=== PATIENT | female | born 1990 | race Caucasian/White ===

== ENCOUNTER → 2018-04-19 12:55 | Outpatient (CLI) | payer OTHER, SELFPAY ==
--- NOTE | 2018-04-19 12:58 | CA_ITS ---
PROCEDURE: 2-D M-mode and color Doppler study INDICATIONS FOR THE TEST: Chest pain COPD Heart Murmur+ Tobacco Smoking Palpitations Fatigue+ Syncope Edema Hypertension Diabetes Mellitus Rheumatic Fever SOB HOLLOWAY Obesity Hyperlipidemia Family History HD Additional History KNOWN VSD PATIENT INFORMATION HEIGHT: 65 WEIGHT:167 GENDER: Female B/P:136/80 2-D/M-MODE INTERPRETATION: 2-D MEASUREMENTS OBSERVED VALUES IN CMS Right Ventricular Dimension (RVDd) 2.2 Interventricular Septum (Thickness)(IVsd) 0.8 Left Ventricular Internal Dimensions(LVIDd) 5.5 Left Ventricular Posterior Wall (Thickness)(LVPWd) 0.8 Aortic Root 3.1 Aortic Cusp Separation 2.1 Left Atrial Dimensions (LAD) 3.8 2D 1. Left atrium is normal size, left ventricle is normal size, there is no concentric left ventricular hypertrophy, visually estimated ejection fraction 55% with no obvious regional wall motion abnormality. 2. The right atrium and right ventricle are normal size and contractility. 3. The aortic valve, mitral and tricuspid valvular grossly normal. 4. The pulmonic valve is poorly visualized. 6. No significant pericardial effusion noted. DOPPLER INTERROGATION: Doppler interrogation of the aortic, mitral and tricuspid valvular presence of mild mitral and tricuspid regurgitation, tricuspid regurgitant jet velocity is insufficient for calculation of the right ventricular systolic pressure, there is a flow across the intraventricular septum through membranus VSD. CONCLUSION: 1. Normal left ventricular size, preserved left ventricular systolic function, visually estimated ejection fraction 55% with no obvious regional wall motion abnormality, diastolic parameters are within normal range. 2. 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 3. No significant pericardial effusion noted
== END ==
PROVIDERS: Family Provider Internal Medicine Adolescent Medicine; PCP Emergency Medicine; Visit Provider Emergency Medicine
DX: R01.1 Cardiac murmur, unspecified (principal)
CPT/HCPCS: 93306

== ENCOUNTER → 2019-03-12 14:56 | Outpatient (CLI) | payer OTHER, SELFPAY ==
--- NOTE | 2019-03-12 15:02 | XR_ITS ---
XR wrist RT min 3V HISTORY ITS.REASON: RT WRIST PAIN ORDERING PHYSICIAN: Dorcas Brar APRN PATIENT AGE: 29 years Comparison: None FINDINGS: No fracture or dislocation. No lytic or blastic change. There is normal mineralization.. The joint spaces are well-preserved. No significant degenerative/arthritic changes. No erosive changes evident.. IMPRESSION: Negative wrist
--- NOTE | 2019-03-12 15:02 | XR_ITS ---
XR hand RT min 3V HISTORY: Pain ITS.REASON: RT PAIN ORDERING PHYSICIAN: Dorcas Brar APRN PATIENT AGE: 29 years COMPARISON: None FINDINGS: No fracture or dislocation. No lytic or blastic change. There is normal mineralization.. The joint spaces are well-preserved. No significant degenerative/arthritic changes. No erosive changes evident.. IMPRESSION: Negative, no acute finding
== END ==
PROVIDERS: PCP Internal Medicine Adolescent Medicine; Visit Provider Nurse Practitioner Family
DX: M25.531 Pain in right wrist (principal); M79.641 Pain in right hand
CPT/HCPCS: 73110; 73130

== ENCOUNTER → 2019-10-24 16:39 | Outpatient (CLI) | payer BC, SELFPAY | PROVIDERS: PCP Family Medicine; Visit Provider Family Medicine | DX: R00.0 Tachycardia, unspecified (principal) | CPT/HCPCS: 93225; 93226 ==

== ENCOUNTER → 2020-09-29 10:18 | Outpatient (CLI) | payer BC, SELFPAY ==
[2020-09-30 12:34] LABS: Covid-19 Nasal PCR Sendout Lex Not Detected
== END ==
PROVIDERS: PCP Family Medicine; Visit Provider Nurse Practitioner Family
DX: Z03.818 Encounter for observation for suspected exposure to other biological agents ruled out (principal)
CPT/HCPCS: 87275; 87276; U0004

== ENCOUNTER 2020-11-05 10:21 | Emergency (ER) | payer BC, SELFPAY ==
[2020-11-05] VITALS (7 sets, daily range): BP systolic 112–131; BP diastolic 55–87; PULSE 69–109; RESP 18–20; TEMP 36.9; O2SAT 100; BMI 29.6
--- NOTE | 2020-11-05 | US_ITS ---
PROCEDURE: US TRANSVAGINAL CLINICAL INDICATION: Right lower quadrant pain COMPARISON: No exams were available for comparison FINDINGS: The uterus is retroverted and measures 7 x 5 x 5 cm with a combined endometrial thickness 8 mm. A 14 mm fibroid involves the posterior aspect of the uterus. The left ovary measures 4 x 3 cm containing multiple follicles and a 2.5 cm simple appearing cyst. Right ovary has an unremarkable appearance measuring 4 x 2.4 cm. Bilateral ovarian blood flow is present. No cul-de-sac fluid apparent. IMPRESSION: Retroverted uterus with small uterine fibroid and 2.5 cm left ovarian cyst Dictated by: Clifford Osorio MD 11/05/2020 12:39 Clifford Osorio MD in [facility] 11/05/2020 12:39
--- NOTE | 2020-11-05 10:31 | HMH.EDABDPAI ---
ED Disposition Clinical Impression: Right lower quadrant abdominal pain Disposition: Home, Self-Care Condition on Discharge: Good Referrals: Mallory Rodriguez PA [Primary Care Provider] - 3 days - Critical Care Critical Care Time: No Attestation: On , the high probability of a clinically significant, sudden or life threatening deterioration of the following system(s) required my full and direct attention, intervention and personal management. The time I documented below is in addition to time spent performing reported procedures but includes the following listed in this critical care notation. Medical Decision Making - Andrea Inquiry Pt receiving controlled substance: No Vital Signs: 11/05/20 10:24 11/05/20 11:16 11/05/20 11:30 Temperature 98.4 F Temperature Source Oral Pulse Rate [Left Radial] 109 H 81 95 H Respiratory Rate 20 Blood Pressure [Left Arm] 131/87 122/73 120/77 Blood Pressure Mean [Left Arm] 101 89 91 Blood Pressure Source [Left Arm] Automatic Cuff Automatic Cuff Automatic Cuff Blood Pressure Position [Left Arm] Sitting Sitting Sitting 02 Sat by Pulse Oximetry 100 100 100 Oxygen Delivery Method Room Air Room Air Room Air 11/05/20 13:00 11/05/20 13:30 11/05/20 14:00 Temperature Temperature Source Pulse Rate [Left Radial] 82 80 75 Respiratory Rate Blood Pressure [Left Arm] 124/73 130/78 116/65 Blood Pressure Mean [Left Arm] 90 95 82 Blood Pressure Source [Left Arm] Automatic Cuff Automatic Cuff Automatic Cuff Blood Pressure Position [Left Arm] Sitting Sitting Sitting 02 Sat by Pulse Oximetry 100 Oxygen Delivery Method Room Air - Lab Data Lab Results 11/05/20 11:34: WBC 9.4, RBC 4.58, Hgb 13.5, Hct 40.3, MCV 88.0, MCH 29.4, MCHC 33.4, RDW 14.6, Plt Count 319, MPV 7.4, Neut % (Auto) 79.0, Lymph % (Auto) 14.8, [place] % (Auto) 4.3, Eos % (Auto) 1.4, Baso % (Auto) 0.5, Neut # (Auto) 7.4, Lymph # (Auto) 1.4, [place] # (Auto) 0.4, Eos # (Auto) 0.1, Baso # (Auto) 0.1 11/05/20 11:34: Sodium 139, Potassium 3.7, Chloride 103, Carbon Dioxide 25, Anion Gap 14.7, BUN 11, Creatinine 0.60, Estimated Creat Clear 175, Estimated GFR 117, Est GFR ( Amer) 142, Glucose 114 H, Calcium 10.2, Total Bilirubin 0.5, AST 26, ALT 22, Alkaline Phosphatase 96, Total Protein 8.5 H, Albumin 4.6, Globulin 3.9 H, Albumin/Globulin Ratio 1.2, Lipase 82, HCG, Quant < 2 11/05/20 11:34: Serum HCG, Qual Negative 11/05/20 12:51: Urine Color Yellow, Urine Appearance Clear, Urine pH 8.5, Ur Specific [place] 1.010, Urine Protein Negative, Urine Glucose (UA) Negative, Urine Ketones Negative, Urine Blood 1+, Urine Nitrate Negative, Urine Bilirubin Negative, Urine Urobilinogen 0.2, Ur Leukocyte Esterase Negative, Urine RBC None, Urine WBC 5-10, Ur Squamous Epith Cells 5-10, Urine Bacteria Trace Result diagrams: 11/05/20 11:34 11/05/20 11:34 Orders (Tests/Meds): ED MEDICATIONS Discontinued Medications Generic Name Dose Route Start Last Admin Trade Name Freq PRN Reason Stop Dose Admin Iopamidol 75 ml 11/05/20 13:17 11/05/20 13:18 Iopamidol-370 (76%);100ml Bottle IV 11/05/20 13:18 75 ml ONCE ONE Administration Morphine Sulfate 4 mg 11/05/20 11:01 11/05/20 11:04 Morphine 4mg/Ml Syringe IV 11/05/20 11:02 4 mg ONCE ONE Administration Ondansetron HCl 4 mg 11/05/20 10:30 Ondansetron 4mg Odt SL 11/05/20 10:31 ONCE ONE Ondansetron HCl 4 mg 11/05/20 11:02 11/05/20 11:04 Ondansetron 4mg/2ml Vial IV 11/05/20 11:03 4 mg ONCE ONE Administration Sodium Chloride 10 ml 11/05/20 13:17 11/05/20 13:18 Sodium Chloride 0.9% 10ml Syr (Rad Only) IV 11/05/20 13:18 10 ml ONCE ONE Administration - CT Data CT Scan: Abdomen, Pelvis Time Received: 14:[address] Reviewed: Yes: I have viewed the radiologist's interpretation Preliminary Findings: Normal/NAD Findings Narrative: Displaced tubal clips. Small left ovarian cyst. Uterine fibroid. - US Data US Images: Abdome
--- NOTE | 2020-11-05 11:16 | US_ITS ---
PROCEDURE: US ABDOMEN LIMITED CLINICAL INDICATION: RLQ pain COMPARISON: No exams were available for comparison FINDINGS: General survey is performed of the right lower quadrant. No obvious cyst, mass, or abnormal fluid collection is evident. The appendix is not identified IMPRESSION: Unremarkable limited abdominal ultrasound as detailed above. This exam does not exclude the possibility acute appendicitis. Suggest CT of the abdomen for further evaluation if that is a clinical concern. Dictated by: Clifford Osorio MD 11/05/2020 12:36 Clifford Osorio MD in [facility] 11/05/2020 12:36
--- NOTE | 2020-11-05 11:44 | PC.NURSE ---
pt to radiology
[2020-11-05 11:48] LABS: Basophils # 0.1 K/mm3 (0-0.2); Basophils % 0.5 % (0.1-2.0); Eosinophils # 0.1 K/mm3 (0.0-0.4); Eosinophils % 1.4 % (0.1-12.0); Hematocrit 40.3 % (37.0-47.0); Hemoglobin 13.5 g/dL (12.2-16.2); Lymphocytes # 1.4 K/mm3 (0.7-4.5); Lymphocytes % 14.8 % (10-50); Mean Corpuscular HGB Conc 33.4 g/dL (31.8-35.4); Mean Corpuscular Hemoglobin 29.4 pg (27.0-31.2); Mean Platelet Volume 7.4 fl (7.4-10.4); Monocytes # 0.4 K/mm3 (0.1-1.0); Monocytes % 4.3 % (1.7-9.3); Neutrophils # 7.4 K/mm3 (1.8-7.8); Platelet Count 319 K/mm3 (142-424); Red Blood Count 4.58 M/mm3 (4.20-5.40); Red Cell Distribution Width 14.6 % (11.5-17.5); White Blood Count 9.4 K/mm3 (4.8-10.8)
--- NOTE | 2020-11-05 11:56 | PC.NURSE ---
Roseline from radiology on phone with
[2020-11-05 12:05] LABS: HCG Qualitative, Serum Negative (Negative)
--- NOTE | 2020-11-05 12:08 | PC.NURSE ---
Pt gone to radiology prior to Roseline calling. Patient still gone at this time.
[2020-11-05 12:09] LABS: Alanine Aminotransferase 22 U/L (12-78); Albumin Level 4.6 g/dl (3.5-5.0); Albumin/Globulin Ratio 1.2 (1.1-1.8); Alkaline Phosphatase 96 U/L (38-126); Anion Gap 14.7 mEq/L (5-15); Aspartate Amino Transferase 26 U/L (14-36); Bilirubin,Total 0.5 mg/dl (0.2-1.3); Blood Urea Nitrogen 11 mg/dl (7-17); Calcium 10.2 mg/dl (8.4-10.2); Carbon Dioxide 25 mmol/L (22.0-30.0); Chloride 103 mmol/L (98-107); Creatinine Clearance Estimated 175 mL/min (50-200); Estimated Glomerular Filt Rate 117 ml/min (>60); GFR (African American) 142 ML/MIN (>60); Globulin 3.9 g/dL (1.3-3.2); Glucose 114 mg/dl (74-100); Lipase 82 U/L (23-300); Potassium 3.7 mmoL/L (3.5-5.1); Sodium 139 mmol/L (136-145); Total Protein,Serum 8.5 g/dl (6.3-8.2)
[2020-11-05 12:31] LABS: HCG,Quantitative < 2 mIU/ml (0-5.42)
--- NOTE | 2020-11-05 12:35 | PC.NURSE ---
pt returning from radiology
--- NOTE | 2020-11-05 12:36 | CT_ITS ---
PROCEDURE: CT ABDOMEN PELVIS W CON CLINICAL INDICATION: Right lower quadrant abdominal pain COMPARISON: No exams were available for comparison TECHNIQUE: IV Contrast: 75ML Isovue 370 Oral Contrast None Axial images obtained with sagittal and coronal reformats. All CT scans at the facility use one or more dose reduction, viz: automated exposure control, ma/kV adjustment per patient size (including targeted exams where dose is matched to indication, i.e. head), or iterative reconstruction technique. FINDINGS: LOWER THORAX: No acute finding ABDOMEN & PELVIS: The liver, spleen, adrenal glands, pancreas, and kidneys have an unremarkable appearance. No renal or ureteral calculi. There is a small umbilical hernia which contains fat. No intestinal obstruction or free air. No evidence of appendicitis. There is a 2.2 cm left ovarian cyst. A tubal ligation clip is present in the right adnexal region. Multiple clips are present in the cul-de-sac area. There is trace amount of fluid in the cul-de-sac. No acute bony findings. There are few small lymph nodes in the inguinal region. IMPRESSION: 1. No evidence of appendicitis or obstructing ureteral calculus. 2. There is a right-sided tubal ligation clip. Multiple clips are present also in the cul-de-sac region suspicious for displaced/dislodged left-sided tubal ligation clip. No tubal ligation clip evident in the left adnexal region. 3. Minimal amount of fluid in the cul-de-sac nonspecific Dictated by: Clifford Osorio MD 11/05/2020 13:35 Clifford Osorio MD in [place] 11/05/2020 13:35
--- NOTE | 2020-11-05 13:09 | PC.NURSE ---
pt to CT
[2020-11-05 14:09] LABS: Microscopic, Urine URINE MICROSCOPIC (MICROSCOPIC)
[2020-11-05 14:18] LABS: Appearance,Urine CLEAR (Clear); Bilirubin,Urine Negative (Negative); Blood, Urine 1+ (Negative); Color,Urine YELLOW (Yellow); Glucose,Urine (UA) Negative (Negative); Ketones,Urine Negative (Negative); Leukocyte Esterase,Urine Negative (Negative); Nitrate,Urine Negative (Negative); PH,Urine 8.5 (5.0-8.5); Protein,Urine Negative (Negative); Urobilinogen,Urine 0.2 EU/dl (0.2)
[2020-11-05 14:29] LABS: Bacteria,Urine Trace /lpf
== END 2020-11-05 14:54 | disposition home or self-care (01) ==
PROVIDERS: Emergency Provider Family Medicine; PCP Physician Assistant
DX: R10.31 Right lower quadrant pain (principal); R11.0 Nausea; Z91.040 Latex allergy status; R01.1 Cardiac murmur, unspecified; Z88.0 Allergy status to penicillin
CPT/HCPCS: 74177; 76705; 76830; 80053; 81001; 83690; 84702; 84703; 85025; 96374; 96375; 99284; J2405; Q9967

== ENCOUNTER → 2021-05-11 09:26 | Outpatient (CLI) | payer OTHER, SELFPAY | PROVIDERS: PCP Family Medicine; Visit Provider Physician Assistant | DX: Z20.822 Contact with and (suspected) exposure to COVID-19 (principal) | CPT/HCPCS: U0003 ==

== ENCOUNTER → 2021-06-26 11:45 | Outpatient (CLI) | payer OTHER, SELFPAY ==
[2021-06-26 12:12] LABS: Adenovirus,PCR Not Detected (NotDetected); Bordetella Pertussis Not Detected (NotDetected); Chlamydophila Pneumoniae, PCR Not Detected (NotDetected); Coronavirus 19, PCR Not Detected (NotDetected); Coronavirus 229E Not Detected (NotDetected); Coronavirus NL63 Not Detected (NotDetected); Coronavirus OC43 Not Detected (NotDetected); Coronovirus HKU1,PCR Not Detected (NotDetected); Human Metapneumovirus Not Detected (NotDetected); Influenza A, PCR Not Detected (NotDetected); Influenza AH1, 2009 Not Detected (NotDetected); Influenza AH1, PCR Not Detected (NotDetected); Influenza AH3,PCR Not Detected (NotDetected); Influenza B, PCR Not Detected (NotDetected); Mycoplasma Pneumoniae, PCR Not Detected (NotDetected); Parainfluenza 1, PCR Not Detected (NotDetected); Parainfluenza 2, PCR Not Detected (NotDetected); Parainfluenza 3, PCR Not Detected (NotDetected); Parainfluenza 4, PCR Not Detected (NotDetected); Respiratory Syncytial Virus Not Detected (NotDetected)
[2021-06-26 12:17] LABS: Basophils # 0.1 K/mm3 (0-0.2); Basophils % 0.7 % (0.1-2.0); Eosinophils # 0.2 K/mm3 (0.0-0.4); Eosinophils % 2.1 % (0.1-12.0); Hematocrit 39.6 % (37.0-47.0); Hemoglobin 12.5 g/dL (12.2-16.2); Lymphocytes # 1.6 K/mm3 (0.7-4.5); Lymphocytes % 20.3 % (10-50); Mean Corpuscular HGB Conc 31.6 g/dL (31.8-35.4); Mean Corpuscular Volume 91.7 fl (81-99); Mean Platelet Volume 7.5 fl (7.4-10.4); Monocytes # 0.4 K/mm3 (0.1-1.0); Monocytes % 4.7 % (1.7-9.3); Neutrophils # 5.6 K/mm3 (1.8-7.8); Neutrophils % 72.1 % (37.0-80.0); Platelet Count 339 K/mm3 (142-424); Red Blood Count 4.32 M/mm3 (4.20-5.40); Red Cell Distribution Width 14.1 % (11.5-17.5); White Blood Count 7.7 K/mm3 (4.8-10.8)
[2021-06-26 13:56] LABS: Rhinovirus/Enterovirus Detected (NotDetected)
== END ==
PROVIDERS: PCP Family Medicine; Visit Provider Family Medicine
DX: Z20.822 Contact with and (suspected) exposure to COVID-19 (principal); B34.1 Enterovirus infection, unspecified
CPT/HCPCS: 36415; 85025; 87581; 87633; 87798

== ENCOUNTER → 2021-08-27 09:31 | Outpatient (CLI) | payer OTHER, SELFPAY ==
[2021-08-27 12:09] LABS: Adenovirus,PCR Not Detected (NotDetected); Coronavirus 229E Not Detected (NotDetected); Coronavirus NL63 Not Detected (NotDetected); Coronavirus OC43 Not Detected (NotDetected); Coronovirus HKU1,PCR Not Detected (NotDetected); Human Metapneumovirus Not Detected (NotDetected); Influenza A, PCR Not Detected (NotDetected); Influenza AH1, 2009 Not Detected (NotDetected); Influenza AH1, PCR Not Detected (NotDetected); Influenza AH3,PCR Not Detected (NotDetected); Influenza B, PCR Not Detected (NotDetected); Parainfluenza 1, PCR Not Detected (NotDetected); Parainfluenza 2, PCR Not Detected (NotDetected); Rhinovirus/Enterovirus Not Detected (NotDetected)
[2021-08-27 12:10] LABS: Bordetella Pertussis Not Detected (NotDetected); Chlamydophila Pneumoniae, PCR Not Detected (NotDetected); Mycoplasma Pneumoniae, PCR Not Detected (NotDetected); Parainfluenza 3, PCR Not Detected (NotDetected); Parainfluenza 4, PCR Not Detected (NotDetected); Respiratory Syncytial Virus Not Detected (NotDetected)
[2021-08-27 13:56] LABS: Coronavirus 19, PCR Detected (NotDetected)
== END ==
PROVIDERS: PCP Family Medicine; Visit Provider Physician Assistant
DX: Z20.822 Contact with and (suspected) exposure to COVID-19 (principal); U07.1 COVID-19
CPT/HCPCS: 87581; 87632; 87798; C9803; U0003; U0005

== ENCOUNTER 2021-08-28 09:53 | Outpatient (CLI) | payer OTHER, SELFPAY ==
[2021-08-28] VITALS (7 sets, daily range): BP systolic 109–118; BP diastolic 69–81; PULSE 90–105; RESP 20–22; TEMP 36.6–37.1; O2SAT 96–98
== END 2021-08-28 12:30 | disposition home or self-care (01) ==
LOC: INF 09:54
PROVIDERS: PCP Family Medicine; Visit Provider Family Medicine
DX: U07.1 COVID-19 (principal); Z23 Encounter for immunization
CPT/HCPCS: 96365

== ENCOUNTER → 2021-10-11 10:32 | Outpatient (CLI) | payer OTHER, SELFPAY ==
[2021-10-12 09:13] LABS: Progesterone 4.6 ng/mL (.)
== END ==
PROVIDERS: Visit Provider Obstetrics & Gynecology
DX: N97.9 Female infertility, unspecified (principal)
CPT/HCPCS: 36415; 84144

== ENCOUNTER → 2021-11-09 08:10 | Outpatient (CLI) | payer BC, SELFPAY ==
[2021-11-10 08:16] LABS: Progesterone 10.4 ng/mL (.)
== END ==
PROVIDERS: Visit Provider Obstetrics & Gynecology
DX: U07.1 COVID-19 (principal)
CPT/HCPCS: 36415; 84144; C9803; U0003; U0005

== ENCOUNTER → 2022-04-13 19:18 | Outpatient (CLI) | payer BC, SELFPAY ==
[2022-04-13 20:18] LABS: HCG,Quantitative 262 mIU/ml (0-5.42)
== END ==
PROVIDERS: PCP Family Medicine; Visit Provider Obstetrics & Gynecology
DX: Z34.90 Encounter for supervision of normal pregnancy, unspecified, unspecified trimester (principal)
CPT/HCPCS: 84702

== ENCOUNTER → 2022-04-17 06:59 | Outpatient (CLI) | payer BC, SELFPAY ==
[2022-04-17 07:55] LABS: HCG,Quantitative 963 mIU/ml (0-5.42)
== END ==
PROVIDERS: PCP Family Medicine; Visit Provider Obstetrics & Gynecology
DX: Z34.90 Encounter for supervision of normal pregnancy, unspecified, unspecified trimester (principal)
CPT/HCPCS: 36415; 84702

== ENCOUNTER → 2022-04-21 09:16 | Outpatient (CLI) | payer BC, SELFPAY ==
--- NOTE | 2022-04-21 09:21 | US_ITS ---
FINAL REPORT CLINICAL HISTORY: intermittent bilateral pelvic pain with early ; rule out ectopic; patient has history of right sided tubal and left sided tube reversal FINDINGS: Sonographic images of the pelvis were obtained. A gestational sac is noted within the uterus. The mean sac diameter is 0.59 cm which corresponds with a 5 week 1 day gestation. No yolk sac or pole is identified. There is a 2.5 cm heterogeneous mass in the left ovary and a 2.7 cm heterogeneous mass in the right ovary. These are of uncertain etiology and may represent complex cysts, other masses are not excluded. An ectopic cannot be excluded. There is a small amount of free fluid. IMPRESSION: Small gestational sac in the uterus corresponding with 5 week 1 day gestation. Recommend follow-up ultrasound. Bilateral heterogeneous ovarian masses of uncertain etiology. Complex cysts or other masses. This can also be further evaluated with follow-up ultrasound. Ectopic not excluded but felt less likely. Reviewed, Interpreted and Dictated by Alex Narvaez III, MD Transcribed by Renee Millan Authenticated and [facility]
[2022-04-21 11:20] LABS: HCG,Quantitative 4351 mIU/ml (0-5.42)
[2022-04-22 08:53] LABS: Progesterone 18.5 ng/mL (.)
== END ==
PROVIDERS: PCP Family Medicine; Visit Provider Obstetrics & Gynecology
DX: Z34.90 Encounter for supervision of normal pregnancy, unspecified, unspecified trimester (principal); Z98.890 Other specified postprocedural states
CPT/HCPCS: 36415; 76801; 84144; 84702

== ENCOUNTER → 2022-05-01 12:27 | Outpatient (CLI) | payer BC, SELFPAY ==
--- NOTE | 2022-05-01 12:28 | US_ITS ---
FINAL REPORT TECHNIQUE: Sonographic imaging of the pelvis was obtained. CLINICAL HISTORY: confirmation of intrauterine ,dates COMPARISON: 04/21/2022 FINDINGS: A single, living intrauterine is identified. Cardiac activity is identified at 116 beats per minute. [place]-rump length is 0.73 cm consistent with 6 weeks 5 days gestation. A 1.5 x 1.1 cm, hypoechoic focus is seen arising from the right ovary likely due to complex cyst. This does not appear to represent gestational sac. IMPRESSION: Single, living intrauterine consistent with 6 weeks 5 days gestation. Reviewed, Interpreted and Dictated by Harris Clinton MD Transcribed by Samara Christine Authenticated and [facility]
== END ==
PROVIDERS: PCP Family Medicine; Visit Provider Obstetrics & Gynecology
DX: Z98.890 Other specified postprocedural states (principal)
CPT/HCPCS: 76801

== ENCOUNTER 2022-05-17 17:58 | Emergency (ER) | payer BC, SELFPAY ==
[2022-05-17 18:08] VITALS: BP 143/90; PULSE 101; RESP 18; TEMP 37; O2SAT 100; BMI 29.1
--- NOTE | 2022-05-17 18:28 | HMH.EDGENADL ---
ED Disposition Clinical Impression: Right corneal abrasion Qualifiers: Encounter type: initial encounter Qualified Code(s): S05.01XA - Injury of conjunctiva and corneal abrasion without foreign body, right eye, initial encounter Disposition: Home, Self-Care Condition on Discharge: Good Instructions: DI for Corneal Abrasion Additional Instructions: Tobramycin eyedrop in right eye every 4 hours while awake for 2 days. Follow-up with [facility] tomorrow if eye pain persist. Dr. Gómez, Dr. Lantigua, Dr. Pritchett [facility] [address] [place] [address] Additional instructions for EYE PAIN or INJURY: Return to the emergency department if severe pain, loss of vision, pus drainage, severe swelling or redness of eyelids. Prescriptions: Tobramycin [Tobrex] 1 drp OP Q4HWA #5 ml Transmission Status: Pending to [facility] Referrals: Sunday Joshi MD [Primary Care Provider] - - Critical Care Critical Care Time: No Attestation: On , the high probability of a clinically significant, sudden or life threatening deterioration of the following system(s) required my full and direct attention, intervention and personal management. The time I documented below is in addition to time spent performing reported procedures but includes the following listed in this critical care notation. Medical Decision Making - Andrea Inquiry Pt receiving controlled substance: No Vital Signs: 05/17/22 18:08 Temperature 98.6 F Temperature Source Oral Pulse Rate [Apical] 101 H Respiratory Rate 18 Blood Pressure [Right Arm] 143/90 H Blood Pressure Mean [Right Arm] 107 Blood Pressure Source [Right Arm] Automatic Cuff Blood Pressure Position [Right Arm] Sitting 02 Sat by Pulse Oximetry 100 Oxygen Delivery Method Room Air General Adult HPI - General Chief complaint: Eye Problems Stated complaint: AO 05/17/22 1715 right eye injury Time Seen by Provider: 05/17/22 18:20 Mode of Arrival: Ambulatory Limitations: No Limitations Description of Symptoms (Recalled from ER Triage Doc. by RN): Pt arrives pov, per pt at approx 1700 her 4 year old daughter accidentally poked her in her right eye. Pt c/o pain and discomfort in the eye, also feels as though she can see a small bubble on her cornea at the top of her iris. - History of Present Illness HPI narrative: Patient complains of right eye injury. States that her child poked her in the eye with a finger. No visual disturbance. She complains of a foreign body sensation in her eye and says that when she looks at her eye in the mirror it looks like she has a small bubble at the top of her cornea. She does not wear contact lenses or glasses. - Related Data Home Medications Medication Instructions Recorded Confirmed vits [id number] fum 1 tab PO DAILY tab 04/17/22 05/17/22 28 mg iron-folic acid 800 mcg tablet Previous Rx's Medication Instructions Recorded ondansetron 4 mg disintegrating 4 mg PO Q4H PRN #30 tab 04/17/22 tablet Tobramycin [Tobrex] 1 drp OP Q4HWA #5 ml 05/17/22 Allergies Allergy/AdvReac Type Severity Reaction Status Date / Time latex [LATEX] Allergy Intermediate I-RASH Verified 05/01/22 13:54 cefaclor [From CECLOR] Allergy Unknown Verified 05/01/22 13:54 Penicillins [PENICILLINS] Allergy Unknown Verified 05/01/22 13:54 [facility] History - Hepatitis A Screen Attestation statement:: This patient has been screened for Hepatitis A risk factors. I have reviewed the patient's past medical history: Yes Medical History: Reports:: Heart Murmur Denies:: Diabetes Mellitus Type 1, Diabetes Mellitus Type 2 Other Surgeries: Yes: Tubal Ligation Amputation: No Fractures: No - Social History Smoking Status: Never smoker Alcohol Intake: never Substance Use Type: denies use Occupational Status: employed Family Hx:: No significant family history ROS Obtained: Yes Systems revi
[2022-05-17 18:48] VITALS: BP 124/80; PULSE 78; RESP 16; TEMP 36.6; O2SAT 98
== END 2022-05-17 18:52 | disposition home or self-care (01) ==
LOC: ER 18:35
PROVIDERS: Emergency Provider Emergency Medicine; PCP Family Medicine
DX: S05.01XA Injury of conjunctiva and corneal abrasion without foreign body, right eye, initial encounter (principal); W26.8XXA Contact with other sharp object(s), not elsewhere classified, initial encounter; Z88.0 Allergy status to penicillin; Z88.1 Allergy status to other antibiotic agents; Z91.040 Latex allergy status; R01.1 Cardiac murmur, unspecified
CPT/HCPCS: 99283

== ENCOUNTER → 2022-05-20 08:55 | Outpatient (CLI) | payer BC, SELFPAY ==
[2022-05-24 05:10] LABS: Neisseria gonorrhoeae, NAA Negative (Negative)
== END ==
PROVIDERS: Visit Provider Obstetrics & Gynecology
DX: Z34.90 Encounter for supervision of normal pregnancy, unspecified, unspecified trimester (principal)
CPT/HCPCS: 87491; 87591

== ENCOUNTER → 2022-05-23 10:54 | Outpatient (CLI) | payer BC, SELFPAY ==
[2022-05-23 11:36] LABS: Basophils # 0.1 K/mm3 (0-0.2); Basophils % 0.6 % (0.1-2.0); Eosinophils # 0.3 K/mm3 (0.0-0.4); Eosinophils % 3.6 % (0.1-12.0); Hematocrit 38.5 % (37.0-47.0); Hemoglobin 12.3 g/dL (12.2-16.2); Lymphocytes # 1.8 K/mm3 (0.7-4.5); Lymphocytes % 22.2 % (10-50); Mean Corpuscular Hemoglobin 28.1 pg (27.0-31.2); Mean Corpuscular Volume 88.1 fl (81-99); Mean Platelet Volume 7.6 fl (7.4-10.4); Monocytes # 0.5 K/mm3 (0.1-1.0); Monocytes % 5.6 % (1.7-9.3); Neutrophils # 5.6 K/mm3 (1.8-7.8); Platelet Count 349 K/mm3 (142-424); Red Blood Count 4.38 M/mm3 (4.20-5.40); Red Cell Distribution Width 14.9 % (11.5-17.5); White Blood Count 8.2 K/mm3 (4.8-10.8)
[2022-05-24 06:14] LABS: HIV Screen 4th Generation wRfx Non Reactive (Non Reactive); Hepatitis B Surface Antigen Negative (Negative); Hepatitis C Antibody <0.1 s/co ratio (0.0-0.9); Rubella Antibodies, IgG 3.17 index (Immune >0.99)
[2022-05-24 11:25] LABS: Rapid Plasma Reagin Ab Titer Non Reactive (NonRea<1:1)
== END ==
PROVIDERS: PCP Family Medicine; Visit Provider Obstetrics & Gynecology
DX: O09.00 Supervision of pregnancy with history of infertility, unspecified trimester (principal)
CPT/HCPCS: 36415; 85025; 86592; 86703; 86762; 86850; 87340; 87380; G0432

== ENCOUNTER 2022-07-10 12:00 | Emergency (ER) | payer BC, SELFPAY ==
[2022-07-10 12:00] VITALS: BP 144/83; PULSE 96; RESP 17; TEMP 36.7; O2SAT 100; BMI 28.6
--- NOTE | 2022-07-10 12:13 | HMH.EDGENADL ---
Discharge Plan Disposition Patient Disposition: Home, Self-Care Condition: Good Prescriptions Prescriptions: New metoclopramide HCl [Reglan] 10 mg tablet 10 mg PO Q6H PRN (Reason: nausea and vomiting) Qty: 30 0RF No Action Classic 28 mg iron- 800 mcg tablet 1 tab PO DAILY ondansetron 4 mg tablet,disintegrating 4 mg PO Q4H PRN (Reason: nausea and vomiting) Qty: 30 4RF Referrals Follow up/Referrals: Sunday Joshi MD [Primary Care Provider] - See instructions Clinical Impressions Clinical Impression: Hyperemesis gravidarum Instructions Patient Instructions: DI for Hyperemesis Gravidarum, Nausea and Vomiting-Adult, Metoclopramide Discharge ED Provider: Kvng Kim General Adult HPI General Chief complaint: Nausea/Vomiting/Diarrhea Stated complaint: high blood pressure,vomiting Time Seen by Provider: 07/10/22 12:13 Mode of Arrival: Ambulatory History of Present Illness HPI narrative: 32-year-old female, currently at approximately 17 weeks EGA. She presents today with complaints of elevated blood pressure and vomiting. She had previous complication of preeclampsia leading to induction at 36 weeks with last baby. She states she is having significant nausea is having vomiting to the point that leads to incontinence due to the forcefulness. She denies any discharge or vaginal bleeding or spotting. Recheck of blood pressure here reveals to be normotensive. 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 She also relates she has labs scheduled for tomorrow. Chief issue presenting to the ED is the severe nausea refractory to Zofran which she has been taking. Related Data Home Medications Medication Instructions Recorded Confirmed vits no.[id number] fum 1 tab PO DAILY Supplement 04/17/22 07/07/22 28 mg iron-folic acid 800 mcg tablet (Classic ) Previous Rx's Medication Instructions Recorded ondansetron 4 mg disintegrating 4 mg PO Q4H PRN nausea and 04/17/22 tablet vomiting #30 tabs metoclopramide HCl 10 mg tablet 10 mg PO Q6H PRN nausea and 07/10/22 (Reglan) vomiting #30 tabs Allergies Allergy/AdvReac Type Severity Reaction Status Date / Time latex [LATEX] Allergy Intermediate I-RASH Verified 07/07/22 08:48 cefaclor [From CECLOR] Allergy Unknown Verified 07/07/22 08:48 Penicillins [PENICILLINS] Allergy Unknown Verified 07/07/22 08:48 [facility] Medical History Heart murmur VSD (ventricular septal defect) Surgical History H/O wisdom tooth extraction History of reversal of tubal ligation History of tubal ligation Family History Other No significant family history Social History Smoking Status: Never smoker alcohol intake: never substance use type: denies use current occupational status: employed Travel in the last 8 weeks: None ROS Obtained: Yes Systems reviewed as appropriate & no additional complaints except as documented Constitutional Constitutional: Reports system reviewed and no additional complaints, except as documented Eyes Eyes: Reports system reviewed and no additional complaints, except as documented ENT Ears, Nose, Mouth, and Throat: Reports system reviewed and no additional complaints, except as documented Cardiovascular Cardiovascular: Reports system reviewed and no additional complaints, except as documented Respiratory Respiratory: Reports system reviewed and no additional complaints, except as documented Gastrointestinal Gastrointestingal: Reports as per HPI Genitourinary Female Genitourinary: Reports system reviewed and no additional complaints, except as documented Musculoskeletal Musculoskeletal: Rep
[2022-07-10 12:34] VITALS: BP 118/62; PULSE 88; RESP 17; O2SAT 100
--- NOTE | 2022-07-10 12:45 | PC.NURSE ---
ED MD AT BEDSIDE FOR EVALUATION
--- NOTE | 2022-07-10 12:55 | PC.NURSE ---
MEDICATED AT THIS TIME, PT WITHOUT NEEDS
[2022-07-10 13:05] VITALS: BP 122/69; PULSE 87; RESP 16; TEMP 36.7; O2SAT 100
== END 2022-07-10 13:05 | disposition home or self-care (01) ==
PROVIDERS: Emergency Provider Emergency Medicine; PCP Family Medicine
DX: O21.0 Mild hyperemesis gravidarum (principal); Z3A.17 17 weeks gestation of pregnancy
CPT/HCPCS: 99283

== ENCOUNTER → 2022-07-11 08:08 | Outpatient (CLI) | payer BC, SELFPAY ==
[2022-07-11 08:55] LABS: Total Volume,Urine 1700 mL (600-1600)
[2022-07-11 09:20] LABS: Total Protein 24 Hour,Urine 510 mg/24 hr (40-90)
[2022-07-11 11:08] LABS: Creatinine,Urine Random 58 mg/dL (Not Estab.)
[2022-07-11 18:44] LABS: Patient Height,Urine 65 inches
[2022-07-11 18:45] LABS: Patient Weight,Urine 175 lbs
[2022-07-11 18:46] LABS: Collection Time,Urine 24 hours
[2022-07-11 18:47] LABS: Creatinine 24 Hour,Urine 986 mg/24hr (630-2500)
== END ==
PROVIDERS: PCP Family Medicine; Visit Provider Obstetrics & Gynecology
DX: I10 Essential (primary) hypertension (principal)
CPT/HCPCS: 82575; 84155

== ENCOUNTER 2022-07-14 10:54 | Observation (INO) | payer BC, SELFPAY ==
[2022-07-14 11:07] VITALS: BMI 29.2
--- NOTE | 2022-07-14 11:33 | HMH.PHAINT1 ---
Pharmacy Intervention Comments: MEDICATION RECONCILIATION COMPLETED ON PATIENT USING EXTERNAL FILL HISTORY FROM PHARMACY. -DORCAS SCALES, HELEND
[2022-07-14 12:41] VITALS: BP 114/75; PULSE 82; RESP 18; TEMP 36.7; O2SAT 98; BMI 29.4
[2022-07-14 12:45] LABS: Microscopic, Urine URINE MICROSCOPIC (MICROSCOPIC)
[2022-07-14 12:48] LABS: Basophils # 0.1 K/mm3 (0-0.2); Basophils % 0.6 % (0.1-2.0); Eosinophils # 0.2 K/mm3 (0.0-0.4); Eosinophils % 1.7 % (0.1-12.0); Hematocrit 35.4 % (37.0-47.0); Lymphocytes # 1.9 K/mm3 (0.7-4.5); Lymphocytes % 19.9 % (10-50); Mean Corpuscular HGB Conc 33.9 g/dL (31.8-35.4); Mean Corpuscular Hemoglobin 29.7 pg (27.0-31.2); Mean Corpuscular Volume 87.6 fl (81-99); Mean Platelet Volume 7.8 fl (7.4-10.4); Monocytes # 0.4 K/mm3 (0.1-1.0); Monocytes % 3.8 % (1.7-9.3); Neutrophils % 74.1 % (37.0-80.0); Platelet Count 303 K/mm3 (142-424); Red Blood Count 4.04 M/mm3 (4.20-5.40); Red Cell Distribution Width 14.6 % (11.5-17.5); White Blood Count 9.5 K/mm3 (4.8-10.8)
[2022-07-14 12:53] LABS: Chloride 104 mmol/L (98-107); Potassium 3.2 mmoL/L (3.5-5.1); Sodium 137 mmol/L (136-145)
[2022-07-14 12:55] LABS: Alanine Aminotransferase 26 U/L (12-78); Aspartate Amino Transferase 27 U/L (14-36); Blood Urea Nitrogen 3 mg/dl (7-17); Creatinine Clearance Estimated 205 mL/min (50-200); Estimated Glomerular Filt Rate 143 ml/min (>60); GFR (African American) 173 ML/MIN (>60)
[2022-07-14 12:56] LABS: Albumin Level 3.9 g/dl (3.5-5.0); Albumin/Globulin Ratio 1.1 (1.1-1.8); Alkaline Phosphatase 109 U/L (38-126); Anion Gap 12.2 mEq/L (5-15); Calcium 9.7 mg/dl (8.4-10.2); Carbon Dioxide 24 mmol/L (22.0-30.0); Globulin 3.7 g/dL (1.3-3.2); Glucose 80 mg/dl (74-100); Total Protein,Serum 7.6 g/dl (6.3-8.2)
[2022-07-14 12:57] LABS: Appearance,Urine CLEAR (Clear); Bilirubin,Urine Negative (Negative); Blood, Urine Negative (Negative); Color,Urine YELLOW (Yellow); Glucose,Urine (UA) Negative (Negative); Ketones,Urine 2+ (Negative); Leukocyte Esterase,Urine TRACE (Negative); Nitrate,Urine Negative (Negative); PH,Urine 6.5 (5.0-8.5); Protein,Urine Negative (Negative); Urobilinogen,Urine 0.2 EU/dl (0.2)
[2022-07-14 13:01] LABS: Bilirubin,Total 0.1 mg/dl (0.2-1.3)
--- NOTE | 2022-07-14 13:11 | MR_ITS ---
FINAL REPORT CLINICAL HISTORY: PERINEAL PAIN STARTED YESTERDAY WORSE THIS MORNING PATIENT STATED ITS ALOT OF PRESSURE AROUND VAGINA AND ANUS PATIENT IS 17 WEEKS FINDINGS: Multiplanar MR images of the pelvis were performed without contrast. The appendix is normal. There is an intrauterine . There is no fracture, bone bruising or marrow edema. No bony mass is identified. There is no evidence of avascular necrosis. No significant joint effusion is seen. The musculature is intact. The tendons are intact. There is no soft tissue mass or cyst identified. There is no inflammation or fluid collection in the perineal region. IMPRESSION: No inflammation or fluid collection in the perineal region. IUP. Reviewed, Interpreted and Dictated by Harris Clinton MD Transcribed by Azael Stallworth Authenticated and [facility]
--- NOTE | 2022-07-14 13:11 | EXP.SURG.CON ---
History of Present Illness *Admission Date: 07/14/22 *Reason for visit:: Pelvic/perineal/perianal pain *History of present illness: This is a 32-year-old female seen in consultation Dr. Mathis for evaluation regarding perianal/perineal/perianal pain. She is 17 weeks gestation and was evaluated earlier today in the office by Dr. Mathis. She complains of intermittent severe vaginal/rectal/perineal pain that is quite a bit better right now . Please see HPI from Dr. Mathis's office visit forwarded below. Forwarded from Dr. Mathis's office visit earlier today: Visit Date: 07/14/22? Last Updated by: Abbey Mathis MD ? ? ? acute onset intense vaginal and rectal pain beginning 8am today ? ? ? 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 ? ? Pain is decreased slightly with lying on side but cannot tolerate sitting position or standing straight ? ? ? She reports normal BM 2 hours before onset of pain and denies vaginal bleeding or leakage of fluid ? ? ? No cramping or contractions ? ? ? No fever, abdominal pain or abnormal vaginal discharge PFSH PFSH Medical History Heart murmur VSD (ventricular septal defect) Surgical History H/O wisdom tooth extraction History of reversal of tubal ligation History of tubal ligation Family History Other No significant family history Social History Smoking Status: Never smoker alcohol intake: never substance use type: denies use current occupational status: employed Travel in the last 8 weeks: None Meds Home Medications and Allergies Home Medications Medication Instructions Recorded Confirmed Type vits no.126-ferrous fum 1 tab PO DAILY Supplement 04/17/22 07/14/22 History 28 mg iron-folic acid 800 mcg tablet (Classic ) metoclopramide HCl 10 mg tablet 10 mg PO Q6HP PRN nausea and 07/14/22 07/14/22 History (Reglan) vomiting ondansetron 4 mg disintegrating 4 mg PO Q4HP PRN nausea and 07/14/22 07/14/22 History tablet vomiting New Prescriptions to Start Prescriptions: Allergies Allergy/AdvReac Type Severity Reaction Status Date / Time latex [LATEX] Allergy Intermediate I-RASH Verified 07/14/22 09:08 cefaclor [From CECLOR] Allergy Unknown Verified 07/14/22 09:08 Penicillins [PENICILLINS] Allergy Unknown Verified 07/14/22 09:08 Exam (Inpt) Vital signs and Labs for Last 24 Hours: Temp Pulse Resp BP Pulse Ox 98.0 F 82 18 114/75 98 07/14/22 12:41 07/14/22 12:41 07/14/22 12:41 07/14/22 12:41 07/14/22 12:41 Laboratory Results - last 24 hr 07/14/22 12:25: WBC 9.5, RBC 4.04 L, Hgb 12.0 L, Hct 35.4 L, MCV 87.6, MCH 29.7, MCHC 33.9, RDW 14.6, Plt Count 303, MPV 7.8, Neut % (Auto) 74.1, Lymph % (Auto) 19.9, [place] % (Auto) 3.8, Eos % (Auto) 1.7, Baso % (Auto) 0.6, Neut # (Auto) 7.0, Lymph # (Auto) 1.9, [place] # (Auto) 0.4, Eos # (Auto) 0.2, Baso # (Auto) 0.1 07/14/22 12:25: Urine Color Yellow, Urine Appearance Clear, Urine pH 6.5, Ur Specific [place] 1.010, Urine Protein Negative, Urine Glucose (UA) Negative, Urine Ketones 2+, Urine Blood Negative, Urine Nitrate Negative, Urine Bilirubin Negative, Urine Urobilinogen 0.2, Ur Leukocyte Esterase Trace, Urine RBC None, Urine WBC 3-5, Ur Squamous Epith Cells 3-5, Urine Bacteria None 07/14/22 12:25: Sodium 137, Potassium 3.2 L, Chloride 104, Carbon Dioxide 24, Anion Gap 12.2, BUN 3 L, Creatinine 0.50 L, Estimated Creat Clear 205, Estimated GFR 143, Est GFR ( Amer) 173, Glucose 80, Calcium 9.7, Total Bilirubin 0.1 L, AST 27, ALT 26, Alkaline Phosphatase 109, Total Protein 7.6, Albumin 3.9, Globulin 3.7 H, Albumin
[2022-07-14 15:57] LABS: Coronavirus 19, PCR Not Detected (NotDetected); Influenza A, PCR Not Detected (NotDetected); Influenza B, PCR Not Detected (NotDetected)
[2022-07-14 16:48] LABS: Amphetamine/Metha Screen,Urine Negative ng/ml (<1000)
[2022-07-14 16:49] LABS: Barbiturates Screen,Urine Negative ng/ml (<200); Benzodiazepines Screen,Urine Negative ng/ml (<200)
[2022-07-14 16:50] LABS: Cannabinoid Screen,Urine Negative ng/ml (<50)
[2022-07-14 16:51] LABS: Cocaine Screen,Urine Negative ng/ml (<300); Methadone Screen,Urine Negative ng/ml (<300)
[2022-07-14 16:52] LABS: Opiate Screen,Urine Negative ng/ml (<300)
[2022-07-14 16:53] LABS: Phencyclidine Screen,Urine Negative ng/ml (<25)
--- NOTE | 2022-07-14 17:06 | EXP.HPDC ---
General Admission date:: 07/14/22 Discharge date: 07/14/22 *Admission Date: 07/14/22 *Chief complaint: rectal pain/pressure *History of present illness: 32 yo @ 17+ wks Admission from office with complaint of intense rectal pain/pressure extending into vaginal pressure and pain She denied fever, abdominal pain or constipation She denied vaginal bleeding or unusual discharge, and cervix closed on exam She was visibly in distress from the pain during office appointment and the tenderness on vaginal and rectal exam was concerning for possible abcess She was admitted for further evaluation and treatment MRI was negative for any masses or inflammatory process, and WBC was normal Potassium 3.2 and she was given supplemental potassium General surgery consult obtained with impression of musculoskeletal or neuropathic pain Pain somewhat improved with repositioning to side position and she will be discharged home with muscle relaxor PFSH PFS Medical History Heart murmur VSD (ventricular septal defect) Surgical History H/O wisdom tooth extraction History of reversal of tubal ligation History of tubal ligation Family History Other No significant family history Social History Smoking Status: Never smoker alcohol intake: never substance use type: denies use current occupational status: employed Travel in the last 8 weeks: None Review of Systems Constitutional Constitutional: Reports system reviewed and no additional complaints, except as documented and Denies headache(s) ENT Ears, Nose, Mouth, and Throat: Denies headache(s) *Gastrointestinal Comments: + rectal pain pain/pressure *Genitourinary Genitourinary: Denies abnormal vaginal bleeding, Denies vaginal discharge and Reports other (+ vaginal pain/pressure) *Musculoskeletal Musculoskeletal: Reports arthralgias *Neurologic Neurologic: Denies headache(s) and Denies other visual disturbances Exam Data for Last 24 hours Vital signs and Labs for Last 24 Hours: Temp Pulse Resp BP Pulse Ox 98.0 F 82 18 114/75 98 07/14/22 12:41 07/14/22 12:41 07/14/22 12:41 07/14/22 12:41 07/14/22 12:41 Laboratory Results - last 24 hr 07/14/22 12:15: Urine Opiates Screen Negative, Urine Methadone Screen Negative, Ur Barbituates Screen Negative, Ur Phencyclidine Scrn Negative, Ur Amphetamines Screen Negative, U Benzodiazepines Scrn Negative, Urine Cocaine Screen Negative, U Marijuana (THC) Screen Negative 07/14/22 12:25: WBC 9.5, RBC 4.04 L, Hgb 12.0 L, Hct 35.4 L, MCV 87.6, MCH 29.7, MCHC 33.9, RDW 14.6, Plt Count 303, MPV 7.8, Neut % (Auto) 74.1, Lymph % (Auto) 19.9, [place] % (Auto) 3.8, Eos % (Auto) 1.7, Baso % (Auto) 0.6, Neut # (Auto) 7.0, Lymph # (Auto) 1.9, [place] # (Auto) 0.4, Eos # (Auto) 0.2, Baso # (Auto) 0.1 07/14/22 12:25: Urine Color Yellow, Urine Appearance Clear, Urine pH 6.5, Ur Specific [place] 1.010, Urine Protein Negative, Urine Glucose (UA) Negative, Urine Ketones 2+, Urine Blood Negative, Urine Nitrate Negative, Urine Bilirubin Negative, Urine Urobilinogen 0.2, Ur Leukocyte Esterase Trace, Urine RBC None, Urine WBC 3-5, Ur Squamous Epith Cells 3-5, Urine Bacteria None 07/14/22 12:25: Sodium 137, Potassium 3.2 L, Chloride 104, Carbon Dioxide 24, Anion Gap 12.2, BUN 3 L, Creatinine 0.50 L, Estimated Creat Clear 205, Estimated GFR 143, Est GFR ( Amer) 173, Glucose 80, Calcium 9.7, Total Bilirubin 0.1 L, AST 27, ALT 26, Alkaline Phosphatase 109, Total Protein 7.6, Albumin 3.9, Globulin 3.7 H, Albumin/Globulin Ratio 1.1 07/14/22 14:25: SARS-CoV-2 (PCR) Not detected, Influenza A Untype (PCR) Not detected, Influenza Type B (PCR) Not detected I & O for Last 24 hours: Intake & Output 07/12/22 07/13/22 07/14/22 07/15/22 11:59 11:59 11:
== END 2022-07-14 17:59 | disposition home or self-care (01) ==
PROVIDERS: Admitting Provider Obstetrics & Gynecology; PCP Family Medicine; Visit Provider Obstetrics & Gynecology
DX: R10.2 Pelvic and perineal pain (principal); Z33.1 Pregnant state, incidental; Z20.822 Contact with and (suspected) exposure to COVID-19
CPT/HCPCS: 72195; 80053; 80305; 81001; 85025; C9803; G0378; J2405; U0003; U0005

== ENCOUNTER → 2022-07-24 09:53 | Outpatient (CLI) | payer BC, SELFPAY ==
--- NOTE | 2022-07-24 09:53 | US_ITS ---
FINAL REPORT CLINICAL HISTORY: US OB Complete FINDINGS: There is a single live intrauterine gestation. Presentation is breech. The cervix is closed and measures 3.5 cm. Placenta is anterior, grade 1. movement is noted. Three-vessel cord with satisfactory umbilical cord insertion. Four-chamber heart is noted. brain and ventricles are unremarkable. Chest and diaphragm are unremarkable. ABDOMEN: Both kidneys are unremarkable. Stomach is unremarkable. SPINE: No gross anomalies identified however the inferior spine is suboptimally visualized. Both arms and legs noted. AMNIOTIC FLUID: Appropriate amount. MEASUREMENTS: ULTRASOUND AGE: 18 weeks 6 days. GESTATION AGE: 18 weeks 6 days. ESTIMATED WEIGHT: 267 g GROWTH PERCENTILE: 53% LMP percentile BPD: 4.2 cm corresponding with 18 weeks 5 days. OFD: 5.4 cm corresponding with 19 weeks 0 days. HC: 15.1 cm corresponding with 18 weeks 1 days. AC: 13.7 cm corresponding with 19 weeks 1 days. FL: 2.9 cm corresponding with 19 weeks 1 days. CEREBELLUM: 1.8 cm corresponding with 18 weeks 5 days. HUMERUS: 2.7 cm corresponding with 18 weeks 6 days. HC/AC: 1.10 CI: 78% FL/BPD: 70% FL/AC: 21% IMPRESSION: Single living IUP with an ultrasound age of 18 weeks 6 days. No anomalies noted however the inferior spine is suboptimally visualized. Reviewed, Interpreted and Dictated by Alex Narvaez III, MD Transcribed by Renee Millan Authenticated and [facility]
== END ==
LOC: RAD 09:53
PROVIDERS: PCP Family Medicine; Visit Provider Obstetrics & Gynecology
DX: Z34.90 Encounter for supervision of normal pregnancy, unspecified, unspecified trimester (principal); Z3A.15 15 weeks gestation of pregnancy
CPT/HCPCS: 76811

== ENCOUNTER → 2022-08-29 12:57 | Outpatient (CLI) | payer BC, SELFPAY ==
--- NOTE | 2022-08-29 12:57 | US_ITS ---
FINAL REPORT CLINICAL HISTORY: inferior spine suboptimally visulized COMPARISON: 07/24/2022 FINDINGS: There is a single live intrauterine gestation. Presentation is breech. Placenta is anterior grade 1. movement is noted. Heart rate is identified at 156 beats per minute. The inferior spine is suboptimally visualized. The other visualized anatomy is grossly within normal limits. MEASUREMENTS: ULTRASOUND AGE: 24 weeks 0 days. GESTATION AGE: 24 weeks 0 days. ESTIMATED WEIGHT: 635 g GROWTH PERCENTILE: 34 % BPD: 5.93 cm corresponding to 24 weeks days. OFD: 7.65 cm corresponding to 24 weeks 1 day. HC: 21.50 cm corresponding to 23 weeks 4 days. AC: 19.14 cm corresponding to 24 weeks 0 days. FL: 4.24 cm corresponding to 23 weeks 6 days. HC/AC: 1.12 CI: 78% FL/BPD: 72% FL/AC: 22% IMPRESSION: Single living IUP with an ultrasound age of 24 weeks 0 days. Inferior spine is suboptimally visualized. Reviewed, Interpreted and Dictated by Harris Clinton MD Transcribed by Jo Barillas Authenticated and [facility]
== END ==
PROVIDERS: PCP Family Medicine; Visit Provider Obstetrics & Gynecology
DX: O28.3 Abnormal ultrasonic finding on antenatal screening of mother (principal)
CPT/HCPCS: 76816

== ENCOUNTER → 2022-09-15 10:57 | Outpatient (CLI) | payer BC, SELFPAY ==
[2022-09-15 13:20] LABS: Total Protein 24 Hour,Urine 315 mg/24 hr (40-90); Total Volume,Urine 1750 mL (600-1600)
== END ==
PROVIDERS: PCP Family Medicine; Visit Provider Obstetrics & Gynecology
DX: O16.9 Unspecified maternal hypertension, unspecified trimester (principal)
CPT/HCPCS: 84155

== ENCOUNTER 2022-09-24 19:29 | Outpatient (CLI) | payer BC, SELFPAY ==
[2022-09-24 19:34] VITALS: BMI 30.2
[2022-09-24 19:44] LABS: Microscopic, Urine URINE MICROSCOPIC (MICROSCOPIC)
[2022-09-24 19:47] LABS: Appearance,Urine CLEAR (Clear); Bilirubin,Urine Negative (Negative); Blood, Urine Negative (Negative); Color,Urine YELLOW (Yellow); Glucose,Urine (UA) Negative (Negative); Ketones,Urine Negative (Negative); Leukocyte Esterase,Urine 1+ (Negative); Nitrate,Urine Negative (Negative); PH,Urine 6.5 (5.0-8.5); Protein,Urine Negative (Negative); Specific Gravity, Urine 1.015 (1.005-1.030); Urobilinogen,Urine 0.2 EU/dl (0.2)
[2022-09-24 19:58] LABS: Amorphous Sediment,Urine Trace /lpf; Squamous Epithelial Cell,Urine Occasional #/hpf (0-5)
[2022-09-24 19:59] LABS: Barbiturates Screen,Urine Negative ng/ml (<200); Benzodiazepines Screen,Urine Negative ng/ml (<200)
[2022-09-24 20:00] VITALS: BP 152/83; PULSE 76; RESP 16; TEMP 36.8; O2SAT 97; BMI 30.3
[2022-09-24 20:00] LABS: Amphetamine/Metha Screen,Urine Negative ng/ml (<1000)
[2022-09-24 20:01] LABS: Cannabinoid Screen,Urine Negative ng/ml (<50); Cocaine Screen,Urine Negative ng/ml (<300)
[2022-09-24 20:02] LABS: Methadone Screen,Urine Negative ng/ml (<300); Opiate Screen,Urine Negative ng/ml (<300)
[2022-09-24 20:03] LABS: Phencyclidine Screen,Urine Negative ng/ml (<25)
== END 2022-09-24 21:25 | disposition home or self-care (01) ==
LOC: OBOUT 19:32 → OB 19:33
PROVIDERS: PCP Family Medicine; Visit Provider Nurse Practitioner Obstetrics & Gynecology
DX: O26.892 Other specified pregnancy related conditions, second trimester (principal); Z3A.27 27 weeks gestation of pregnancy; M54.50 Low back pain, unspecified
CPT/HCPCS: 59025; 80305; 81001; 87086; G0463

== ENCOUNTER → 2022-10-02 08:36 | Outpatient (CLI) | payer BC, SELFPAY ==
[2022-10-02 08:54] LABS: Basophils % 0.5 % (0.1-2.0); Eosinophils # 0.2 K/mm3 (0.0-0.4); Eosinophils % 2.3 % (0.1-12.0); Hematocrit 30.5 % (37.0-47.0); Hemoglobin 10.2 g/dL (12.2-16.2); Lymphocytes # 1.4 K/mm3 (0.7-4.5); Lymphocytes % 15.9 % (10-50); Mean Corpuscular HGB Conc 33.5 g/dL (31.8-35.4); Mean Corpuscular Hemoglobin 29.5 pg (27.0-31.2); Mean Corpuscular Volume 87.9 fl (81-99); Mean Platelet Volume 7.9 fl (7.4-10.4); Monocytes # 0.4 K/mm3 (0.1-1.0); Neutrophils # 6.8 K/mm3 (1.8-7.8); Neutrophils % 77.4 % (37.0-80.0); Platelet Count 339 K/mm3 (142-424); Red Blood Count 3.47 M/mm3 (4.20-5.40); Red Cell Distribution Width 13.6 % (11.5-17.5); White Blood Count 8.8 K/mm3 (4.8-10.8)
[2022-10-02 09:13] LABS: Glucose,Fasting 92 mg/dl (74-100)
[2022-10-02 10:51] LABS: Glucose 1 Hour 170 mg/dL (74-100)
== END ==
PROVIDERS: PCP Family Medicine; Visit Provider Obstetrics & Gynecology
DX: Z34.90 Encounter for supervision of normal pregnancy, unspecified, unspecified trimester (principal)
CPT/HCPCS: 36415; 82951; 85025

== ENCOUNTER → 2022-10-17 10:13 | Outpatient (CLI) | payer BC, SELFPAY | PROVIDERS: PCP Family Medicine; Visit Provider Obstetrics & Gynecology | DX: O28.8 Other abnormal findings on antenatal screening of mother (principal); O24.410 Gestational diabetes mellitus in pregnancy, diet controlled; O16.9 Unspecified maternal hypertension, unspecified trimester | CPT/HCPCS: 76816; 76819 ==

== ENCOUNTER → 2022-10-23 12:55 | Outpatient (CLI) | payer BC, SELFPAY ==
--- NOTE | 2022-10-23 12:59 | US_ITS ---
FINAL REPORT CLINICAL HISTORY: Hypertention in FINDINGS: TRANSABDOMINAL ULTRASOUND There is a single live intrauterine gestation. Presentation is cephalic. The cervix is closed and measures 3.1 cm. Placenta is anterior, grade 2. Cardiac activity is confirmed at 150 bpm. Fetus is active and practice breathing is seen. RAQUEL: 12 cm MEASUREMENTS: ULTRASOUND AGE: 32 weeks 2 days. GESTATION AGE: 31 weeks 6 days. ESTIMATED WEIGHT: 1858 g GROWTH PERCENTILE: 39% LMP percentile BPD: 8.2 cm corresponding with 32 weeks 6 days. OFD: 10.3 cm corresponding with 31 weeks 6 days. HC: 29.1 cm corresponding with 32 weeks 1 days. AC: 27.7 cm corresponding with 31 weeks 6 days. FL: 6.1 cm corresponding with 32 weeks 0 days. S/D: 2.14 HC/AC: 1.05 CI: 80% FL/BPD: 75% FL/AC: 22% BREATHIN/2 MOVEMENT: 2/2 TONE: 2/2 FLUID VOLUME: 2/2 BPP SCORE: 8/8 IMPRESSION: Single living IUP with an ultrasound age of 32 weeks 2 days. BPP SCORE: 8/8 RAQUEL: 12 cm Reviewed, Interpreted and Dictated by Nancy Oliva MD Transcribed by Renee Millan Authenticated and [facility]
== END ==
PROVIDERS: PCP Family Medicine; Visit Provider Obstetrics & Gynecology
DX: O16.9 Unspecified maternal hypertension, unspecified trimester (principal)
CPT/HCPCS: 76816; 76819; 76820

== ENCOUNTER 2022-11-03 16:51 | Outpatient (CLI) | payer BC, SELFPAY ==
[2022-11-03] VITALS (22 sets, daily range): BP systolic 129–154; BP diastolic 70–85; PULSE 70–86; RESP 17–20; TEMP 36.7–36.8; O2SAT 97–99; BMI 29.7
[2022-11-03 17:50] LABS: Microscopic, Urine URINE MICROSCOPIC (MICROSCOPIC)
[2022-11-03 17:59] LABS: Appearance,Urine CLEAR (Clear); Bilirubin,Urine Negative (Negative); Blood, Urine Negative (Negative); Color,Urine YELLOW (Yellow); Glucose,Urine (UA) Negative (Negative); Ketones,Urine Negative (Negative); Leukocyte Esterase,Urine 2+ (Negative); Nitrate,Urine Negative (Negative); PH,Urine 6.5 (5.0-8.5); Protein,Urine Negative (Negative); Urobilinogen,Urine 0.2 EU/dl (0.2)
[2022-11-03 18:15] LABS: Bacteria,Urine Trace /lpf; RBC,Urine Occasional #/hpf (0-3)
[2022-11-03 18:16] LABS: Barbiturates Screen,Urine Negative ng/ml (<200); Benzodiazepines Screen,Urine Negative ng/ml (<200)
[2022-11-03 18:17] LABS: Amphetamine/Metha Screen,Urine Negative ng/ml (<1000); Methadone Screen,Urine Negative ng/ml (<300)
[2022-11-03 18:18] LABS: Cannabinoid Screen,Urine Negative ng/ml (<50)
[2022-11-03 18:19] LABS: Cocaine Screen,Urine Negative ng/ml (<300); Opiate Screen,Urine Negative ng/ml (<300)
[2022-11-03 18:20] LABS: Phencyclidine Screen,Urine Negative ng/ml (<25)
[2022-11-03 19:18] LABS: Basophils % 0.5 % (0.1-2.0); Eosinophils # 0.2 K/mm3 (0.0-0.4); Eosinophils % 1.6 % (0.1-12.0); Hematocrit 32.9 % (37.0-47.0); Hemoglobin 10.7 g/dL (12.2-16.2); Lymphocytes # 1.8 K/mm3 (0.7-4.5); Lymphocytes % 18.5 % (10-50); Mean Corpuscular HGB Conc 32.7 g/dL (31.8-35.4); Mean Corpuscular Hemoglobin 27.5 pg (27.0-31.2); Mean Corpuscular Volume 84.2 fl (81-99); Mean Platelet Volume 7.9 fl (7.4-10.4); Monocytes # 0.5 K/mm3 (0.1-1.0); Monocytes % 5.1 % (1.7-9.3); Neutrophils # 7.1 K/mm3 (1.8-7.8); Neutrophils % 74.3 % (37.0-80.0); Platelet Count 393 K/mm3 (142-424); Red Blood Count 3.91 M/mm3 (4.20-5.40); Red Cell Distribution Width 13.8 % (11.5-17.5); White Blood Count 9.5 K/mm3 (4.8-10.8)
[2022-11-03 19:41] LABS: Chloride 105 mmol/L (98-107); Potassium 3.2 mmoL/L (3.5-5.1); Sodium 138 mmol/L (136-145)
[2022-11-03 19:44] LABS: Alanine Aminotransferase 31 U/L (12-78); Albumin Level 4.2 g/dl (3.5-5.0); Alkaline Phosphatase 223 U/L (38-126); Anion Gap 13.2 mEq/L (5-15); Aspartate Amino Transferase 32 U/L (14-36); Bilirubin,Total 0.5 mg/dl (0.2-1.3); Blood Urea Nitrogen 3 mg/dl (7-17); Carbon Dioxide 23 mmol/L (22.0-30.0); Creatinine Clearance Estimated 207 mL/min (50-200); Estimated Glomerular Filt Rate 143 ml/min (>60); GFR (African American) 173 ML/MIN (>60); Globulin 4.4 g/dL (1.3-3.2); Total Protein,Serum 8.6 g/dl (6.3-8.2)
[2022-11-03 19:45] LABS: Glucose 103 mg/dl (74-100)
--- NOTE | 2022-11-03 21:12 | US_ITS ---
PROCEDURE INFORMATION: Exam: US Biophysical Profile Without Non-Stress Test Exam date and time: 11/03/2022 10:40 PM Age: 32 years old Clinical indication: Other: Patient high BP; ; Additional info: Non-reactive nst TECHNIQUE: Imaging protocol: US biophysical profile without non-stress testing. COMPARISON: US OB /MATERNAL DETAIL 07/24/2022 9:58 AM FINDINGS: presentation: Single living fetus with heart rate 142 bpm in cephalic presentation. Placenta: Placenta is anterior grade 2. Amniotic fluid index: Amniotic fluid index 12.2. BIOPHYSICAL PROFILE: breathing movement (BPP): 2 out of 2. body movement (BPP): 2 out of 2. tone (BPP): 2 out of 2. Amniotic fluid (BPP): 2 out of 2. IMPRESSION: 1. Biophysical profile score is 8 out of 8. 2. Single living fetus with heart rate 142 bpm in cephalic presentation. 3. Amniotic fluid index 12.2. 4. Placenta is anterior grade 2.
--- NOTE | 2022-11-03 22:38 | PC.NURSE ---
Radiology on unit at this time to complete BPP
--- NOTE | 2022-11-03 23:14 | PC.NURSE ---
BPP completed at this time. Results 05/29 per roof technician.
[2022-11-07 22:06] LABS: Bile Acids 24.9
== END 2022-11-03 23:27 | disposition home or self-care (01) ==
LOC: OBOUT 16:54 → OB 16:54
PROVIDERS: PCP Family Medicine; Visit Provider Obstetrics & Gynecology
DX: O47.03 False labor before 37 completed weeks of gestation, third trimester (principal); O13.9 Gestational [pregnancy-induced] hypertension without significant proteinuria, unspecified trimester; Z3A.33 33 weeks gestation of pregnancy; R51.9 Headache, unspecified; R11.0 Nausea
CPT/HCPCS: 59025; 76819; 80053; 80305; 81001; 82239; 85025; 87086; 96360

== ENCOUNTER → 2022-11-06 13:52 | Outpatient (CLI) | payer BC, SELFPAY ==
--- NOTE | 2022-11-06 13:55 | US_ITS ---
FINAL REPORT CLINICAL HISTORY: hypertension, and gestational diabetes/ FINDINGS: TRANSABDOMINAL ULTRASOUND There is a single live intrauterine gestation. Presentation is cephalic. The cervix is closed and measures 2.9 cm. Placenta is anterior, grade 2. Cardiac activity is confirmed at 150 bpm. Fetus is active and practice breathing is seen. RAQUEL: 12.1 cm MEASUREMENTS: Note the fetus was difficult to measure due to position. ULTRASOUND AGE: 33 weeks 5 days. GESTATION AGE: 33 weeks 6 days. ESTIMATED WEIGHT: 2124 g GROWTH PERCENTILE: 23% LMP percentile HC/AC: 1.05 CI: 84% FL/BPD: 75% FL/AC: 23% BPD: 8.7 cm corresponding with 35 weeks 0 days. OFD: 10.4 cm corresponding with 32 weeks 2 days. HC: 30 cm corresponding with 33 weeks 2 days. AC: 28.5 cm corresponding with 32 weeks 4 days. FL: 6.5 cm corresponding with 33 weeks 4 days. SD ratio: 3.51 BREATHIN/2 MOVEMENT: 2/2 TONE: 2/2 FLUID VOLUME: 2/2 BPP SCORE: 8/8 IMPRESSION: Single living IUP with an ultrasound age of 33 weeks 5 days. BPP SCORE: 8/8 RAQUEL: 12.1 cm Reviewed, Interpreted and Dictated by Kaitlin Morrow MD Transcribed by Renee Millan Authenticated and [facility]
== END ==
PROVIDERS: PCP Family Medicine; Visit Provider Obstetrics & Gynecology
DX: O16.9 Unspecified maternal hypertension, unspecified trimester (principal); O24.410 Gestational diabetes mellitus in pregnancy, diet controlled
CPT/HCPCS: 76816; 76819; 76820

== ENCOUNTER 2022-11-13 16:04 | Outpatient (CLI) | payer BC, SELFPAY ==
[2022-11-13 16:17] VITALS: BP 141/87; PULSE 82; RESP 18; TEMP 36.4; O2SAT 97
== END 2022-11-13 16:37 | disposition home or self-care (01) ==
LOC: INF 16:06
PROVIDERS: PCP Family Medicine; Visit Provider Obstetrics & Gynecology
DX: Z34.90 Encounter for supervision of normal pregnancy, unspecified, unspecified trimester (principal); Z3A.33 33 weeks gestation of pregnancy
CPT/HCPCS: 86403; 96372

== ENCOUNTER → 2022-11-13 17:48 | Outpatient (CLI) | payer BC, SELFPAY | PROVIDERS: Visit Provider Obstetrics & Gynecology | DX: Z34.90 Encounter for supervision of normal pregnancy, unspecified, unspecified trimester (principal) ==

== ENCOUNTER 2022-11-14 07:22 | Outpatient (CLI) | payer BC, SELFPAY ==
[2022-11-14 08:00] VITALS: BP 135/93; PULSE 115; RESP 18; TEMP 36.6; O2SAT 97; BMI 29.6
[2022-11-14 09:56] LABS: Microscopic, Urine URINE MICROSCOPIC (MICROSCOPIC)
[2022-11-14 09:59] LABS: Appearance,Urine CLEAR (Clear); Bilirubin,Urine Negative (Negative); Blood, Urine Negative (Negative); Color,Urine YELLOW (Yellow); Glucose,Urine (UA) Negative (Negative); Ketones,Urine TRACE (Negative); Leukocyte Esterase,Urine 2+ (Negative); Nitrate,Urine Negative (Negative); Protein,Urine Negative (Negative); Urobilinogen,Urine 0.2 EU/dl (0.2)
[2022-11-14 10:10] LABS: Bacteria,Urine 1+ /lpf
[2022-11-14 11:42] LABS: Barbiturates Screen,Urine Negative ng/ml (<200); Benzodiazepines Screen,Urine Negative ng/ml (<200)
[2022-11-14 11:43] LABS: Cannabinoid Screen,Urine Negative ng/ml (<50)
[2022-11-14 11:44] LABS: Cocaine Screen,Urine Negative ng/ml (<300); Methadone Screen,Urine Negative ng/ml (<300)
[2022-11-14 11:45] LABS: Opiate Screen,Urine Negative ng/ml (<300)
[2022-11-14 11:46] LABS: Phencyclidine Screen,Urine Negative ng/ml (<25)
[2022-11-14 11:58] LABS: Amphetamine/Metha Screen,Urine Negative ng/ml (<1000)
== END 2022-11-14 10:40 | disposition home or self-care (01) ==
LOC: OBOUT 07:23 → OB 07:24
PROVIDERS: Obstetrics & Gynecology; PCP Family Medicine; Visit Provider Nurse Practitioner Obstetrics & Gynecology
DX: O47.03 False labor before 37 completed weeks of gestation, third trimester (principal); Z3A.35 35 weeks gestation of pregnancy
CPT/HCPCS: 59025; 80305; 81001; 87086

== ENCOUNTER 2022-11-23 04:59 | Inpatient (IN) | payer BC, SELFPAY ==
[2022-11-23 05:06] VITALS: BMI 29.7
[2022-11-23 05:38] VITALS: BP 146/83; PULSE 96; RESP 18; TEMP 36.4; O2SAT 100; BMI 29.7
[2022-11-23 06:34] LABS: Coronavirus 19, PCR Not Detected (NotDetected); Influenza A, PCR Not Detected (NotDetected); Influenza B, PCR Not Detected (NotDetected)
[2022-11-23 06:34] LABS: Appearance,Urine CLEAR (Clear); Bilirubin,Urine Negative (Negative); Blood, Urine TRACE-I (Negative); Color,Urine YELLOW (Yellow); Glucose,Urine (UA) Negative (Negative); Ketones,Urine Negative (Negative); Leukocyte Esterase,Urine 3+ (Negative); Microscopic, Urine URINE MICROSCOPIC (MICROSCOPIC); Nitrate,Urine Negative (Negative); PH,Urine 6.5 (5.0-8.5); Protein,Urine Negative (Negative); Urobilinogen,Urine 0.2 EU/dl (0.2)
[2022-11-23 06:35] LABS: Basophils # 0.1 K/mm3 (0-0.2); Basophils % 0.7 % (0.1-2.0); Eosinophils # 0.2 K/mm3 (0.0-0.4); Eosinophils % 1.4 % (0.1-12.0); Hematocrit 30.8 % (37.0-47.0); Hemoglobin 10.1 g/dL (12.2-16.2); Lymphocytes # 1.9 K/mm3 (0.7-4.5); Lymphocytes % 18.6 % (10-50); Mean Corpuscular HGB Conc 32.8 g/dL (31.8-35.4); Mean Corpuscular Hemoglobin 26.8 pg (27.0-31.2); Mean Corpuscular Volume 81.9 fl (81-99); Mean Platelet Volume 8.2 fl (7.4-10.4); Monocytes # 0.4 K/mm3 (0.1-1.0); Neutrophils # 7.7 K/mm3 (1.8-7.8); Neutrophils % 75.3 % (37.0-80.0); Platelet Count 331 K/mm3 (142-424); Red Blood Count 3.76 M/mm3 (4.20-5.40); Red Cell Distribution Width 14.6 % (11.5-17.5); White Blood Count 10.2 K/mm3 (4.8-10.8)
[2022-11-23 06:47] LABS: Amphetamine/Metha Screen,Urine Negative ng/ml (<1000); Bacteria,Urine 2+ /lpf; Benzodiazepines Screen,Urine Negative ng/ml (<200)
[2022-11-23 06:48] LABS: Barbiturates Screen,Urine Negative ng/ml (<200); Cannabinoid Screen,Urine Negative ng/ml (<50)
[2022-11-23 06:49] LABS: Cocaine Screen,Urine Negative ng/ml (<300)
[2022-11-23 06:50] LABS: Methadone Screen,Urine Negative ng/ml (<300); Opiate Screen,Urine Negative ng/ml (<300)
[2022-11-23 06:51] LABS: Phencyclidine Screen,Urine Negative ng/ml (<25)
[2022-11-23 07:32] VITALS: BP 130/79; PULSE 67; RESP 18; TEMP 36.6; O2SAT 98
--- NOTE | 2022-11-23 07:59 | EXP.HP ---
History of Present Illness *Admission Date: 11/23/22 *Reason for visit:: Induction of labor *History of present illness: 32 yo @ 36 11/28 [place] 12/19/22 care at [facility]-- Dr. 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 course complicated by CHTN, GDMA1, anemia and intermittently debilitating musculoskeletal pain BP currently managed with labetalol 200mg BID; control of bp has oscillated over the 3rd trimester Recent reports of decreased movement have also been accompanied by repeated nonreactive NST She was given prophylactic steroids because of potential for early delivery She has history of genital HSV and started prophylactic valtrex 3 weeks ago NST non-reactive at time of admission Spontaneous rupture of membranes occurred upon admission, before labor initiated [facility] Disclaimer: The information contained in this section may have been updated after the patient was seen, as this information can be updated by other users. Medical History Heart murmur Right corneal abrasion VSD (ventricular septal defect) Surgical History H/O wisdom tooth extraction History of reversal of tubal ligation History of tubal ligation Family History Other No significant family history Social History (Updated 11/23/22 @ 07:20 by Jayashree Mcneil RN) Smoking Status: Never smoker alcohol intake: never substance use type: denies use current occupational status: unemployed Travel in the last 8 weeks: None do you feel safe at home: Yes victim of physical abuse: No victim of emotional abuse: No victim of sexual abuse: No Review of Systems Review of Systems Review of systems:: pertinent systems reviewed and negative unless documented below Review of systems (narrative): + decreased movement Constitutional Constitutional: Denies headache(s) ENT Ears, Nose, Mouth, and Throat: Denies headache(s) *Genitourinary Genitourinary: Denies abnormal vaginal bleeding and Reports other (irregular contractions) *Neurologic Neurologic: Denies headache(s) and Denies other visual disturbances Meds Home Medications and Allergies Home Medications Medication Instructions Recorded Confirmed Type vits no.126-ferrous fum 1 tab PO DAILY Supplement 04/17/22 11/23/22 History 28 mg iron-folic acid 800 mcg tablet (Classic ) metoclopramide HCl 10 mg tablet 10 mg PO Q6HP PRN nausea and 08/16/22 11/23/22 Rx (Reglan) vomiting #30 tabs labetalol 200 mg tablet 200 mg PO TID Hypertension 11/03/22 11/23/22 History valacyclovir 500 mg tablet 500 mg PO DAILY Infection 11/23/22 11/23/22 History (Valtrex) New Prescriptions to Start Prescriptions: Allergies Allergy/AdvReac Type Severity Reaction Status Date / Time latex [LATEX] Allergy Intermediate I-RASH Verified 11/21/22 09:13 cefaclor [From CECLOR] Allergy Unknown Verified 11/21/22 09:13 Penicillins [PENICILLINS] Allergy Unknown Verified 11/21/22 09:13 Exam Data for Last 24 hours Vital signs and Labs for Last 24 Hours: Temp Pulse Resp BP Pulse Ox 97.6 F 96 H 18 146/83 H 100 11/23/22 05:38 11/23/22 05:38 11/23/22 05:38 11/23/22 05:38 11/23/22 05:38 Laboratory Results - last 24 hr 11/23/22 05:15: Urine Color Yellow, Urine Appearance Clear, Urine pH 6.5, Ur Specific [place] 1.020, Urine Protein Negative, Urine Glucose (UA) Negative, Urine Ketones Negative, Urine Blood Trace-i, Urine Nitrate Negative, Urine Bilirubin Negative, Urine Urobilinogen 0.2, Ur Leukocyte Esterase 3+ A, Urine RBC 3-5, Urine WBC 10-20, Ur Squamous Epith Cells 3-5, Urine Bacteria 2+ 11/23/22 05:15: Urine Opiates Screen Negative, Urine [place]
--- NOTE | 2022-11-23 10:22 | EXP.ANES.CKL ---
[facility] Disclaimer: The information contained in this section may have been updated after the patient was seen, as this information can be updated by other users. Medical History Heart murmur Right corneal abrasion VSD (ventricular septal defect) Surgical History H/O wisdom tooth extraction History of reversal of tubal ligation History of tubal ligation Family History Other No significant family history Social History (Updated 11/23/22 @ 07:20 by Jayashree Mcneil RN) Smoking Status: Never smoker alcohol intake: never substance use type: denies use current occupational status: unemployed Travel in the last 8 weeks: None do you feel safe at home: Yes victim of physical abuse: No victim of emotional abuse: No victim of sexual abuse: No [facility] Anesthesia Checklist Patient Identification Patient Identification: Verbal (Name & ) Structural Data Admitted From: Inpatient Planned Operative Procedure/s: labor epidural Consent for Planned Operative Procedure(s) Verified: Yes Airway Assessment C-Spine Mobility Assessed: Yes TMJ Mobility Assessed: Yes Dentition: Good Dentition Neurological Assessment Level of Consciousness: Awake, Alert and Appropriate Anesthesia Plan Anesthesia Risk discussed: Yes Anesthesia Plan: Verified ASA Class: II Anesthesia Type: Epidural
--- NOTE | 2022-11-23 10:39 | P.CONPHA_ITS ---
Pharmacy Intervention Comments: MEDICATION RECONCILIATION COMPLETED ON PATIENT USING EXTERNAL FILL HISTORY FROM PHARMACY AND LIST FROM [facility] REPAIRER OFFICE. -HELEN DCD
--- NOTE | 2022-11-23 10:39 | HMH.PHAINT1 ---
Pharmacy Intervention Comments: MEDICATION RECONCILIATION COMPLETED ON PATIENT USING EXTERNAL FILL HISTORY FROM PHARMACY AND LIST FROM REGISTERED PHYSICAL THERAPIST OFFICE. -HELEN DCD
[2022-11-23 16:36] VITALS: BP 154/84; PULSE 63; RESP 17; TEMP 36.4; O2SAT 100
--- NOTE | 2022-11-23 17:01 | EXP.DN ---
Delivery Note Delivery Date:: 11/23/22 Delivery Time:: 12:57 Anesthesia Type: Epidural Was labor medically induced?: Yes Induction method: per pitocin protocol Gestational age (weeks): 36 delivered prior to 39 weeks?: Yes Justification for early elective delivery:: Benign Hypertension and Premature ROM Gender: Female at 1 minute: 8 at 5 minutes: 9 Delivery Procedure:: Spontaneous vaginal delivery of live born female over intact perineum Delivery uncomplicated; peds present because of prematurity No nuchal cord No shoulder dystocia with delivery taken to warmer for assessment immediately after delivery; subsequently brought to maternal chest and placed in [facility] Infant Apgars: 8 & 9 Placenta spontaneously expressed and examined; noted to be complete/intact. Vulva, vagina, and cervix inspected; no lacerations present EBL: 300 cc All sponge/needle/instrument counts correct at conclusion of procedure Placental Delivery Description: Spontaneous
[2022-11-23 19:32] VITALS: BP 147/74; PULSE 66; RESP 17; TEMP 36.9
[2022-11-24 03:38] VITALS: BP 141/83; PULSE 63; RESP 17; TEMP 36.7
[2022-11-24 06:30] LABS: Hematocrit 27.9 % (37.0-47.0); Hemoglobin 8.9 g/dL (12.2-16.2)
[2022-11-24 09:06] VITALS: BP 143/74; PULSE 73; RESP 18; TEMP 36.3
--- NOTE | 2022-11-24 12:27 | EXP.ACUTE.PN ---
Subjective *Date: 11/24/22 *Time: 12:27 Interval history: PPD #1 No unusual complaints She is tolerating a regular diet She is ambulating and voiding without difficulty or complication Lochia is appropriate She is asymptomatic with [id number] anemia Hgb is 8.9 today (10.1 at admission) BP has been stable on labetalol 200mg BID Medical Exam Vital signs and Labs for Last 24 Hours: Vital Signs Temp Pulse Resp BP 11/24/22 17:00 139/74 11/24/22 13:25 71 126/70 11/24/22 09:06 97.4 F L 73 18 143/74 H 11/24/22 03:38 98.1 F 63 17 141/83 H 11/23/22 19:32 98.4 F 66 17 147/74 H Intake and Output 11/24/22 11/24/22 11/24/22 03:59 11:59 19:59 Other: Number of Unmeasured Voids 1 Laboratory Results - last 24 hr 11/24/22 06:21: Hgb 8.9 L, Hct 27.9 L I & O for Labs for Last 24 Hours: Intake & Output 11/22/22 11/23/22 11/24/22 11/25/22 11:59 11:59 11:59 11:59 Output Total 650 / 650 Balance -650 / -650 Weight 179 lb Microbiology Reports for the Last 24 Hours: Microbiology 11/23/22 05:15 Urine,Clean Catch Urine Culture - Preliminary NO GROWTH AFTER 24 HOURS Comment:: No acute distress Comment:: breathing unlabored Comment:: Regular rate, normal peripheral pulses Comments:: abdomen soft, non-tender, non-distended Comment:: uterine fundus firm below umbilicus Comment:: 1+ edema bilateral lower extremities Comment:: no rash Assessment and Plan *Assessment and plan (1) 36 weeks gestation of : Status: Acute Category: Medical Code(s): Z3A.36 - 36 weeks gestation of (2) Non-stress test nonreactive: Status: Acute Category: Medical Code(s): O28.8 - Other abnormal findings on screening of mother (3) Spontaneous rupture of membranes: Status: Acute Category: Medical (4) Hypertension affecting : Status: Acute Category: Medical Code(s): O16.9 - Unspecified maternal hypertension, unspecified trimester (5) Gestational diabetes mellitus, class A1: Status: Acute Category: Medical Code(s): O24.410 - Gestational diabetes mellitus in , diet controlled (6) Anemia affecting : Status: Acute Category: Medical Code(s): O99.019 - Anemia complicating , unspecified trimester (7) Anemia associated with acute blood loss: Status: Acute Category: Medical Code(s): D62 - Acute posthemorrhagic anemia Plan Routine care Decrease in Hgb appropriate for EBL with vaginal delivery; lochia has been normal IV ferrous sulfate given today Continue labetalol 200mg BID Anticipate discharge home tomorrow
[2022-11-24 13:25] VITALS: BP 126/70; PULSE 71
[2022-11-24 17:00] VITALS: BP 139/74
[2022-11-24 21:20] VITALS: BP 133/78; PULSE 69; RESP 18; TEMP 36.6
[2022-11-25 03:46] VITALS: BP 123/74; PULSE 81; RESP 18; TEMP 36.7
--- NOTE | 2022-11-25 12:03 | EXP.DC.SUM ---
General Admission date:: 11/23/22 Discharge date: 11/25/22 HPI HPI HPI: 32 yo @ 36 11/28 CORDELIA 12/19/22 care at [facility]-- Dr. 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 course complicated by CHTN, GDMA1, anemia and intermittently debilitating musculoskeletal pain BP currently managed with labetalol 200mg BID; control of bp has oscillated over the 3rd trimester Recent reports of decreased movement have also been accompanied by repeated nonreactive NST She was given prophylactic steroids because of potential for early delivery She has history of genital HSV and started prophylactic valtrex 3 weeks ago NST non-reactive at time of admission Spontaneous rupture of membranes occurred upon admission, before labor initiated Hospital Course Hospital Course Hospital Course: course uncomplicated She is discharged home on PPD #2 in stable condition She is tolerating a regular diet She is ambulating and voiding without difficulty Lochia is appropriate and she is asymptomatic with [id number] anemia She was given IV iron on PPD #1 and will continue PO iron after discharge Exam Data for Last 24 hours Vital signs and Labs for Last 24 Hours: Temp Pulse Resp BP Pulse Ox 98.1 F 81 18 123/74 100 11/25/22 03:46 11/25/22 03:46 11/25/22 03:46 11/25/22 03:46 11/23/22 16:36 I & O for Last 24 hours: Intake & Output 11/23/22 11/24/22 11/25/22 11/26/22 11:59 11:59 11:59 11:59 Output Total 650 / 650 Balance -650 / -650 Weight 179 lb Microbiology Reports for the Last 24 Hours: Microbiology 11/23/22 05:15 Urine,Clean Catch Urine Culture - Final NO GROWTH AFTER 48 HOURS Constitutional Constitutional: no acute distress *Routine HEENT Exam Head: Present normocephalic Eye: Absent conjunctival icterus or scleral injection ENT: Present mucous membranes moist *Routine Neck Exam Neck: Present supple *Routine Respiratory Exam Respiratory: Present CTA bilaterally *Routine Cardiovascular Exam Cardiovascular: Present RRR *Routine Abdominal Exam Abdominal: Present soft; Absent tenderness or distended *Routine Rectal Exam Patient deferred: visual exam and digital exam *Routine Exam Patient deferred: external exam Comments: Fundus firm below umbilicus *Routine Extremities Exam Extremities: Present edema *Routine Neurological Exam Neurological: Present alert and oriented X3 Routine Psychiatric Exam Psychiatric: Present normal affect; Absent depressed DS: Diagnosis Discharge Diagnosis (1) 36 weeks gestation of : Status: Acute (2) Non-stress test nonreactive: Status: Acute (3) Spontaneous rupture of membranes: Status: Acute (4) Hypertension affecting : Status: Acute (5) Gestational diabetes mellitus, class A1: Status: Acute (6) Anemia affecting : Status: Acute (7) Anemia associated with acute blood loss: Status: Acute Meds Home Medications and Allergies Home Medications Medication Instructions Recorded Confirmed Type vits no.126-ferrous fum 1 tab PO DAILY Supplement 04/17/22 11/23/22 History 28 mg iron-folic acid 800 mcg tablet (Classic ) labetalol 200 mg tablet 200 mg PO TID Hypertension 11/03/22 11/23/22 History ferrous sulfate 325 mg (65 mg 325 mg PO BID #60 tabs 11/25/22 Rx iron) tablet ibuprofen 400 mg tablet 800 mg PO Q6HP PRN Mild To 11/25/22 Rx Moderate Pain #30 tabs New Prescriptions to Start Prescriptions: ferrous sulfate Abbey Mathis ibuprofen Abbey Mathis Allergies Allergy/AdvReac Type Severity Reaction Status Date / Time latex [LATEX] Allergy Intermediate I-RASH Verified 11/21/22 09:13 cefaclor [From [facility]
== END 2022-11-25 13:35 | disposition home or self-care (01) | DRG 806 ==
PROVIDERS: Admitting Provider Obstetrics & Gynecology; PCP Family Medicine; Visit Provider Obstetrics & Gynecology
DX: O16.4 Unspecified maternal hypertension, complicating childbirth (principal); D62 Acute posthemorrhagic anemia; Z37.0 Single live birth; O98.32 Other infections with a predominantly sexual mode of transmission complicating childbirth; Z3A.36 36 weeks gestation of pregnancy; A60.09 Herpesviral infection of other urogenital tract; O99.02 Anemia complicating childbirth; O42.913 Preterm premature rupture of membranes, unspecified as to length of time between rupture and onset of labor, third trimester; D64.89 Other specified anemias; O24.420 Gestational diabetes mellitus in childbirth, diet controlled
CPT/HCPCS: 59409; 59025; 80305; 81001; 85014; 85018; 85025; 86850; 87086; 94761; C1758; C9803; G0283; J1756; J2405; U0003; U0005

== ENCOUNTER 2022-12-01 19:00 | Observation (INO) | payer BC, SELFPAY ==
[2022-12-01] VITALS (10 sets, daily range): BP systolic 104–168; BP diastolic 64–91; PULSE 57–85; RESP 16–18; TEMP 36.7–37.1; O2SAT 97–98; BMI 28.1
[2022-12-01 18:57] LABS: Microscopic, Urine URINE MICROSCOPIC (MICROSCOPIC)
[2022-12-01 19:05] LABS: Appearance,Urine CLEAR (Clear); Bilirubin,Urine Negative (Negative); Blood, Urine 1+ (Negative); Color,Urine YELLOW (Yellow); Glucose,Urine (UA) Negative (Negative); Ketones,Urine Negative (Negative); Leukocyte Esterase,Urine TRACE (Negative); Nitrate,Urine Negative (Negative); Protein,Urine Negative (Negative); Specific Gravity, Urine >= 1.030 (1.005-1.030)
[2022-12-01 19:21] LABS: Amphetamine/Metha Screen,Urine Negative ng/ml (<1000); Barbiturates Screen,Urine Negative ng/ml (<200); Benzodiazepines Screen,Urine Negative ng/ml (<200); Cannabinoid Screen,Urine Negative ng/ml (<50); Cocaine Screen,Urine Negative ng/ml (<300); Methadone Screen,Urine Negative ng/ml (<300); Opiate Screen,Urine Negative ng/ml (<300); Phencyclidine Screen,Urine Negative ng/ml (<25)
[2022-12-01 19:22] LABS: Bacteria,Urine Trace /lpf; WBC,Urine Occasional #/hpf (0-3)
--- NOTE | 2022-12-01 19:37 | PC.NURSE ---
18:10 - Pt. arrived to floor with c/o Headache and high BP at home. Pt. rates headache at 8/10 constant. Pt. denies epigastric and RUQ pain. Pt. denies vision disturbances. Pt. into bathroom to provide urine sample. 18:25 - BP at 168/91 Nurse informed pt. BP high and to expect to be admitted and need Magnesium infusion. Nurse educated pt. on magnesium. Pt. v/u and reports she would prefer to try some oral medication as pt. refuses IV. Nurse v/u and reports she will retake BP in 15 minutes. Pt. v/u.
--- NOTE | 2022-12-01 19:38 | PC.NURSE ---
18:40 - Manual BP at 160/92. Nurse reeducated pt. on possible Admission and need for IV. Pt. v/u and reports she is a hard stick and had to have U/S guided IV last time. Nurse v/u. 18:49 -Spoke with Dr. Castellano over telephone report given on BP and Pt. refusal of IV. MD v/u and reports Pt. will needs IV magnesium. See Provider Notification for orders received. 18:52 Pt. notified of MD orders to admit pt. and severity of BP. Pt. v/u and reports she would allow an IV if needed, but always has to be stuck multiple times for IV's. Nurse v/u and will prepare room for pt.
[2022-12-01 19:52] LABS: Basophils # 0.1 K/mm3 (0-0.2); Basophils % 1.3 % (0.1-2.0); Eosinophils # 0.3 K/mm3 (0.0-0.4); Eosinophils % 3.6 % (0.1-12.0); Hematocrit 33.7 % (37.0-47.0); Lymphocytes # 1.8 K/mm3 (0.7-4.5); Lymphocytes % 23.4 % (10-50); Mean Corpuscular HGB Conc 32.5 g/dL (31.8-35.4); Mean Corpuscular Hemoglobin 27.5 pg (27.0-31.2); Mean Corpuscular Volume 84.4 fl (81-99); Mean Platelet Volume 7.5 fl (7.4-10.4); Monocytes # 0.3 K/mm3 (0.1-1.0); Monocytes % 4.2 % (1.7-9.3); Neutrophils # 5.3 K/mm3 (1.8-7.8); Neutrophils % 67.7 % (37.0-80.0); Platelet Count 398 K/mm3 (142-424); Red Cell Distribution Width 16.1 % (11.5-17.5); White Blood Count 7.8 K/mm3 (4.8-10.8)
[2022-12-01 20:01] LABS: Activated Partial Thrombo Time 23.5 seconds (22.8-30.6); Alanine Aminotransferase 31 U/L (12-78); Anion Gap 10.2 mEq/L (5-15); Aspartate Amino Transferase 22 U/L (14-36); Blood Urea Nitrogen 13 mg/dl (7-17); Calcium 9.8 mg/dl (8.4-10.2); Carbon Dioxide 25 mmol/L (22.0-30.0); Chloride 110 mmol/L (98-107); Creatinine Clearance Estimated 122 mL/min (50-200); Estimated Glomerular Filt Rate 83 ml/min (>60); Fibrinogen 436 mg/dL (229.9-363.5); GFR (African American) 101 ML/MIN (>60); Glucose 83 mg/dl (74-100); INR 0.93 (0.9-1.1); Potassium 3.2 mmoL/L (3.5-5.1); Prothrombin Time 10.1 seconds (10.1-12.5); Sodium 142 mmol/L (136-145); Uric Acid 5.6 mg/dl (2.5-6.2)
[2022-12-01 20:10] LABS: D-Dimer 2.14 ug/mL (0.0-0.5)
--- NOTE | 2022-12-01 20:12 | PC.WOUNDNOTE ---
Magnesium bolus initiated at this time. RN at bedside
--- NOTE | 2022-12-01 20:15 | PC.NURSE ---
Dr. Castellano at bedside at this time assessing patient
--- NOTE | 2022-12-01 20:20 | PC.NURSE ---
Patient resting in bed at this time. Resp even and nonlabored. No s/s of distress noted at this time. Magnesium infusion infusing at this time, patient tolerating well.
--- NOTE | 2022-12-01 20:20 | PC.NURSE ---
Dr. Castellano states if patient's mag level is in therapeutic range, 4.8-7, then i can notify her of level via text. She states if it is out of range to call her and notify her.
--- NOTE | 2022-12-01 20:41 | EXP.HP ---
History of Present Illness *Admission Date: 12/01/22 *Reason for visit:: Headache, elevated blood pressures *History of present illness: Mrs Radha Apodaca is a 32 yo P2113 who presented to [facility] L&D for headache x 2-3 days and elevated blood pressure today. She is 8 days s/p . She was induced at 36 weeks 2 days for CHTN on Labetalol 200 mg BID. Labetalol was started during second trimester. She admits she started having occasional mild range BP around 14 weeks gestation. She admits she has had a severe headache for the past few days unresponsive to Ibuprofen, Tylenol and rest. She admits to floaters in her vision a few days ago. Today she took her Labetalol ~ 1030 then slept for 3 hours. When she woke up her headache was still present. She took her second dose of Labetalol 200 mg at 1630. She checked her BP and it was 167/90's. She called OB animal taxonomist, myself, and was instructed to come to L&D. She arrived to L&D at 1805. Initial BP was 168/91 followed by 160/91 (15 minutes after the first). Procardia 20 mg PO was given with instructions to start mag sulfate. She is breast feeding. She reports light lochia. Denies RUQ/epigastric pain and swelling. [facility] Disclaimer: The information contained in this section may have been updated after the patient was seen, as this information can be updated by other users. Medical History (Updated 12/01/22 @ 21:02 by Vale Castellano DO) Chronic hypertension Heart murmur History of herpes genitalis Hypertension affecting Hypokalemia Preeclampsia in period Right corneal abrasion Status post normal vaginal delivery VSD (ventricular septal defect) Surgical History H/O unilateral salpingectomy H/O wisdom tooth extraction History of reversal of tubal ligation History of tubal ligation Family History Other No significant family history Social History Smoking Status: Never smoker alcohol intake: never substance use type: denies use current occupational status: unemployed and other Travel in the last 8 weeks: None do you feel safe at home: Yes victim of physical abuse: No victim of emotional abuse: No victim of sexual abuse: No Review of Systems Review of Systems Review of systems:: pertinent systems reviewed and negative unless documented below Constitutional Constitutional: Reports headache(s) Eyes Eyes: Reports floaters ENT Ears, Nose, Mouth, and Throat: Reports headache(s) *Neurologic Neurologic: Reports headache(s) Meds Home Medications and Allergies Home Medications Medication Instructions Recorded Confirmed Type vits no.126-ferrous fum 1 tab PO DAILY Supplement 04/17/22 11/23/22 History 28 mg iron-folic acid 800 mcg tablet (Classic ) labetalol 200 mg tablet 200 mg PO TID Hypertension 11/03/22 11/23/22 History ferrous sulfate 325 mg (65 mg 325 mg PO BID #60 tabs 11/25/22 Rx iron) tablet ibuprofen 400 mg tablet 800 mg PO Q6HP PRN Mild To 11/25/22 Rx Moderate Pain #30 tabs New Prescriptions to Start Prescriptions: Allergies Allergy/AdvReac Type Severity Reaction Status Date / Time latex [LATEX] Allergy Intermediate I-RASH Verified 11/21/22 09:13 cefaclor [From [facility]] Allergy Unknown Verified 11/21/22 09:13 Penicillins [PENICILLINS] Allergy Unknown Verified 11/21/22 09:13 Exam Data for Last 24 hours Vital signs and Labs for Last 24 Hours: Temp Pulse Resp BP Pulse Ox 98.8 F 70 16 168/91 H 97 12/01/22 18:25 12/01/22 18:25 12/01/22 18:25 12/01/22 19:18 12/01/22 18:25 Laboratory Results - last 24 hr 12/01/22 18:20: Urine Color Yellow, Urine Appearance Clear, Urine pH 6.0, Ur Specific [place] >= 1.030, Urine Protein Negative, Urine Glucose (UA) Negative, Urine Ketones Negative, Urine Blood 1+, Urine Nitrate Negative, Urin
[2022-12-02] VITALS (9 sets, daily range): BP systolic 111–146; BP diastolic 64–89; PULSE 65–80; RESP 17–18; TEMP 36.7–36.9; O2SAT 96–99; BMI 27.1
[2022-12-02 00:32] LABS: Coronavirus 19, PCR Not Detected (NotDetected); Influenza A, PCR Not Detected (NotDetected); Influenza B, PCR Not Detected (NotDetected)
[2022-12-02 00:46] LABS: Magnesium 5.4 mg/dl (1.6-2.3)
--- NOTE | 2022-12-02 01:35 | PC.NURSE ---
Notified Dr. Castellano via text of patient's mag level of 5.4 per her request.
--- NOTE | 2022-12-02 03:12 | PC.NURSE ---
Notified Dr. Castellano that patient rates her headache 05/31 and that I just administered 500mg of Tylenol but she is requesting something stronger. Also reviewed patient's B/Ps with her including the most recent of . She ordered to give one time dose of 30mg IV Toradol. She also states she received text notifying her of mag level.
--- NOTE | 2022-12-02 04:00 | PC.NURSE ---
Patient resting in bed at this time. Resp even and nonlabored. No s/s of distress noted. Patient states her headache has greatly improved and now rates it at a 2/10. IV patent with no redness or edema noted to site, infusing well. Seizure pads in place per protocol. DTRs WNL bilaterally. Adequate output noted. VSS. Patient denies any needs at this time. Call light within reach of patient, instructed to notify staff of any needs.
[2022-12-02 04:33] LABS: OB Protein,Urine (DIP) Negative (Negative)
[2022-12-02 08:19] LABS: Magnesium 6.5 mg/dl (1.6-2.3)
--- NOTE | 2022-12-02 11:30 | EXP.DC.SUM ---
General Admission date:: 12/01/22 Discharge date: 12/02/22 HPI HPI HPI: PPD # 9 s/p Currently on magnesium sulfate. Mag level 4 hours after bolus was 5.4, therapeutic. She is feeling okay on mag sulfate. Admits to continued mild headache. She is breast feeding. Denies abdominal pain. Light lochia. Voiding without difficulty and passing flatus. UOP 1950 mL from 0000 12/02/22 to 1000 on 12/02/22. Tolerating regular diet. Denies vision changes, RUQ/epigastric pain and swelling. Hospital Course Hospital Course Hospital Course: Mrs Radha Apodaca is a 32 yo P2113 who presented to [facility] L&D for headache x 2-3 days and elevated blood pressure 12/01/22. She was 8 days s/p upon arrival to L&D. She was induced at 36 weeks 2 days for CHTN on Labetalol 200 mg BID. Labetalol was started during second trimester. She admits she started having occasional mild range BP around 14 weeks gestation. She admits she has had a severe headache for the past few days unresponsive to Ibuprofen, Tylenol and rest. She admits to floaters in her vision a few days ago. On 12/01/22 she took her Labetalol ~ 1030 then slept for 3 hours. When she woke up her headache was still present. She took her second dose of Labetalol 200 mg at 1630. She checked her BP and it was 167/90's. She called OB case consultant and was instructed to come to L&D. She arrived to L&D at 1805. Initial BP was 168/91 followed by 160/91 (15 minutes after the first). Procardia 20 mg PO was given. Magnesium sulfate was started and continued for 24 hours. Labetalol 200 mg q 12 hours was continued. Blood pressures have been normotensive since treatment with Procardia and starting mag sulfate. She is breast feeding. She reports light lochia. Denied RUQ/epigastric pain and swelling. PIH labs within normal limits. She was treated for hypokalemia. She was discharged to home after 24 hours with instructions to continue Labetalol 200 mg q 12 hours and potassium chloride 40 mEq x 4 days. Follow-up in the office on 12/04/22 for BP check. Exam Data for Last 24 hours Vital signs and Labs for Last 24 Hours: Temp Pulse Resp BP Pulse Ox 98.0 F 76 18 124/76 99 12/02/22 07:30 12/02/22 11:01 12/02/22 07:30 12/02/22 11:01 12/02/22 07:30 Laboratory Results - last 24 hr 12/01/22 18:20: Urine Color Yellow, Urine Appearance Clear, Urine pH 6.0, Ur Specific [place] >= 1.030, Urine Protein Negative, Urine Glucose (UA) Negative, Urine Ketones Negative, Urine Blood 1+, Urine Nitrate Negative, Urine Bilirubin Negative, Urine Urobilinogen 1.0, Ur Leukocyte Esterase Trace, Urine RBC 3-5, Urine WBC Occasional, Ur Squamous Epith Cells 3-5, Urine Bacteria Trace 12/01/22 18:20: Urine Opiates Screen Negative, Urine Methadone Screen Negative, Ur Barbituates Screen Negative, Ur Phencyclidine Scrn Negative, Ur Amphetamines Screen Negative, U Benzodiazepines Scrn Negative, Urine Cocaine Screen Negative, U Marijuana (THC) Screen Negative 12/01/22 19:36: WBC 7.8, RBC 4.00 L, Hgb 11.0 L, Hct 33.7 L, MCV 84.4, MCH 27.5, MCHC 32.5, RDW 16.1, Plt Count 398, MPV 7.5, Neut % (Auto) 67.7, Lymph % (Auto) 23.4, Arthur % (Auto) 4.2, Eos % (Auto) 3.6, Baso % (Auto) 1.3, Neut # (Auto) 5.3, Lymph # (Auto) 1.8, Arthur # (Auto) 0.3, Eos # (Auto) 0.3, Baso # (Auto) 0.1 12/01/22 19:36: PT 10.1, INR 0.93, APTT 23.5, Fibrinogen 436 H 12/01/22 19:36: D-Dimer 2.14 H, Sodium 142, Potassium 3.2 L, Chloride 110 H, Carbon Dioxide 25, Anion Gap 10.2, BUN 13, Creatinine 0.80, Estimated Creat Clear 122, Estimated GFR 83, Est GFR ( Amer) 101, Glucose 83, Uric Acid 5.6, Calcium 9.8, AST 22, ALT 31 12/01/22 23:59: SARS-CoV-2 (PCR) Not detected, Influenza A Untype (PCR) Not detected, Influenza Type B (PCR) Not detected 12/02/22 00:25: Magnesium 5.4 H 12/02/22 02:15: Urine Protein Negative 12/02/22 08:06: Magnesium 6.5 H D I & O for Last 24 hours: Intake & Output 11/29/22 11/30/22 12/01/22 12/02/22 23:59 23:59 23:59 23:59 Output Total 1150 / 1150 1950 / 1950
[2022-12-02 14:49] LABS: OB Protein,Urine (DIP) Negative (Negative)
--- NOTE | 2022-12-02 20:07 | PC.NURSE ---
PT SLEEPING,RESP.EVEN AND UNLABORED.TURNED HER MAG.SULFATE OFF.LR STILL INFUSING AT 75ML/HR.SUPPOSE TO WATCH PT UNTIL 2099 BEFORE SENDING HER HOME
--- NOTE | 2022-12-02 20:40 | PC.NURSE ---
PT GETTING READY TO BREASTFEED INFANT
== END 2022-12-02 21:10 | disposition home or self-care (01) ==
LOC: OBOUT 19:00 → OB 19:00
PROVIDERS: Admitting Provider Obstetrics & Gynecology; PCP Family Medicine; Visit Provider Obstetrics & Gynecology
DX: O11.5 Pre-existing hypertension with pre-eclampsia, complicating the puerperium (principal); O10.03 Pre-existing essential hypertension complicating the puerperium; R01.1 Cardiac murmur, unspecified; Q21.0 Ventricular septal defect; E87.6 Hypokalemia; Z20.822 Contact with and (suspected) exposure to COVID-19
CPT/HCPCS: 36415; 80048; 80305; 81001; 81002; 83735; 84450; 84460; 84550; 85025; 85378; 85384; 85610; 85730; C9803; G0378; U0003; U0005

== ENCOUNTER 2023-06-19 18:38 | Emergency (ER) | payer BC, SELFPAY ==
--- NOTE | 2023-06-19 | ECG_ITS ---
APPROVED REPORT Exam: Resting ECG HR:120 bpm ECG Measurements Heart Rate 120 AXES NJ 166 P 62 QRSd 98 QRS -33 QT 312 T 57 QTc 383 Conclusion SINUS TACHYCARDIA LEFT AXIS DEVIATION [QRS AXIS < -30] LOW QRS VOLTAGE IN PRECORDIAL LEADS [QRS DEFLECTION < 1.0 mV IN CHEST LEADS] ABNORMAL ECG UNCONFIRMED REPORT Electronically signed by : David Ramirez MD 06/21/2023 18:44:00
[2023-06-19 18:57] VITALS: BP 132/78; PULSE 137; RESP 19; TEMP 37.8; O2SAT 100; BMI 26.2
--- NOTE | 2023-06-19 19:07 | CT_ITS ---
PROCEDURE INFORMATION: Exam: CTA Chest With Contrast Exam date and time: 06/19/23 09:31 PM Age: 33 years old Clinical indication: Shortness of breath; Additional info: SOA, hr 140s TECHNIQUE: Imaging protocol: Computed tomographic angiography of the chest with contrast. Exam focused on the arteries. 3D rendering (Not supervised by radiologist): MIP and/or 3D reconstructed images were created by the technologist. Radiation optimization: All CT scans at this facility use at least one of these dose optimization techniques: automated exposure control; mA and/or kV adjustment per patient size (includes targeted exams where dose is matched to clinical indication); or iterative reconstruction. Contrast material: ISOVUE 370; Contrast volume: 75 ml; Contrast route: INTRAVENOUS (IV); REPORTING DATA: Count of CT and Cardiac NM exams in prior 12 months: This patient has received 0 known CTs and 0 known cardiac nuclear medicine studies in the 12 months prior to the current study. COMPARISON: CR XR CHEST PORTABLE 06/19/23 07:15 PM FINDINGS: Pulmonary arteries: Normal. No pulmonary emboli. Aorta: Unremarkable. No aortic aneurysm. No aortic dissection. Lungs: Unremarkable. No consolidation. No masses. Pleural spaces: Unremarkable. No pneumothorax. No pleural effusion. Heart: Unremarkable. No cardiomegaly. No pericardial effusion. Lymph nodes: Unremarkable. No enlarged lymph nodes. Bones/joints: Unremarkable. No acute fracture. Soft tissues: Unremarkable. IMPRESSION: No acute findings.
--- NOTE | 2023-06-19 19:07 | XR_ITS ---
PROCEDURE INFORMATION: Exam: XR Chest Exam date and time: 06/19/23 07:15 PM Age: 33 years old Clinical indication: Shortness of breath; Additional info: SOA TECHNIQUE: Imaging protocol: Radiologic exam of the chest. Views: 1 view. COMPARISON: CR CXR2V XR chest 2V 12/24/18 06:37 PM FINDINGS: Lungs: Unremarkable. No consolidation. Pleural spaces: Unremarkable. No pleural effusion. No pneumothorax. Heart/Mediastinum: Unremarkable. No cardiomegaly. Bones/joints: Unremarkable. IMPRESSION: No acute findings.
--- NOTE | 2023-06-19 19:10 | HMH.EDGENADL ---
Discharge Plan Disposition Patient Disposition: Home, Self-Care Condition: Fair Prescriptions Prescriptions: No Action Classic 28 mg iron- 800 mcg tablet 1 tab PO DAILY labetalol 200 mg tablet 200 mg PO BID potassium chloride 20 mEq Tablet,Er Particles/Crystals 40 meq PO DAILY 4 Days Qty: 8 0RF Referrals Follow up/Referrals: Provider,Referral, [Primary Care Provider] - See instructions Activity Restrictions/Add. Instructions Additional Instructions/Restrictions: At this time is felt you are safe to be discharged home. If new or worsening symptoms please do not hesitate to return the emergency department. If your symptoms persist in a few days please follow-up with your family doctor as you are able. Clinical Impressions Clinical Impression: Acute viral syndrome, Shortness of breath, Vomiting, Abdominal pain Discharge ED Provider: Thad Mayers General Adult HPI General Chief complaint: Dizziness Stated complaint: dizzy, Rt arm pain Time Seen by Provider: 06/19/23 18:55 Mode of Arrival: Wheelchair Source of Information: Patient Limitations: No Limitations Description of Symptoms (Recalled from ER Triage Doc. by RN): 33 yo F presents to ED with c/o chest pressure, numbness in right hand, diziness, sore throat, fever. pt reports symptoms began last night History of Present Illness HPI narrative: Patient is a 33-year-old female with no pertinent past medical history who presents emergency department for evaluation of shortness of breath, fast heart rate, sore throat, arthralgias. Onset was acute, over the last 24 hours. Patient states she feels as if she did previously with her strep infection. Patient is currently on her menstrual cycle. There is associated shortness of breath, patient denies significant chest pain however says that her heart does not feel right . She has been increasingly concerned over the course of the day causing her to be very upset, with intermittent associated tingling in her bilateral hands. Polyarthralgias are present, still bearing weight. No other acute complaints at this time. Related Data Home Medications Medication Instructions Recorded Confirmed vits no.126-ferrous fum 1 tab PO DAILY Supplement 04/17/22 01/05/23 28 mg iron-folic acid 800 mcg tablet (Classic ) labetalol 200 mg tablet 200 mg PO BID Hypertension 01/05/23 01/05/23 Previous Rx's Medication Instructions Recorded potassium chloride 20 mEq 40 meq PO DAILY 4 days #8 tabs 02/11/23 tablet,extended release(part/cryst) Allergies Allergy/AdvReac Type Severity Reaction Status Date / Time latex [LATEX] Allergy Intermediate I-RASH Verified 01/05/23 10:08 cefaclor [From [facility]] Allergy Unknown Verified 01/05/23 10:08 Penicillins [PENICILLINS] Allergy Unknown Verified 01/05/23 10:08 [facility] Disclaimer: The information contained in this section may have been updated after the patient was seen, as this information can be updated by other users. Medical History Chronic hypertension Heart murmur History of herpes genitalis Hypertension affecting Hypokalemia Preeclampsia in period Right corneal abrasion Status post normal vaginal delivery VSD (ventricular septal defect) Surgical History H/O unilateral salpingectomy right H/O wisdom tooth extraction History of reversal of tubal ligation History of tubal ligation Family History Other No significant family history Social History Smoking Status: Never smoker alcohol intake: never substance use type: denies use current occupational status: employed Travel in the last 8 weeks: None do you feel safe at home: Yes victim of physical abuse: No victim of emotional
[2023-06-19 19:23] LABS: Basophils # 0.1 K/mm3 (0-0.2); Basophils % 0.3 % (0.1-2.0); Eosinophils # 0.2 K/mm3 (0.0-0.4); Eosinophils % 1.5 % (0.1-12.0); Hematocrit 45.8 % (37.0-47.0); Lymphocytes # 1.1 K/mm3 (0.7-4.5); Lymphocytes % 7.9 % (10-50); Mean Corpuscular HGB Conc 32.7 g/dL (31.8-35.4); Mean Corpuscular Volume 85.6 fl (81-99); Mean Platelet Volume 7.7 fl (7.4-10.4); Monocytes # 0.5 K/mm3 (0.1-1.0); Monocytes % 3.7 % (1.7-9.3); Neutrophils # 11.7 K/mm3 (1.8-7.8); Neutrophils % 86.4 % (37.0-80.0); Platelet Count 290 K/mm3 (142-424); Red Blood Count 5.35 M/mm3 (4.20-5.40); Red Cell Distribution Width 14.5 % (11.5-17.5); White Blood Count 13.5 K/mm3 (4.8-10.8)
--- NOTE | 2023-06-19 19:29 | ECG_ITS ---
APPROVED REPORT Exam: Resting ECG HR:129 bpm ECG Measurements Heart Rate 129 AXES QRSd 100 QRS -41 QT 302 T 75 QTc 378 Conclusion Sinus tachycardia LEFT AXIS DEVIATION [QRS AXIS < -30] LOW QRS VOLTAGE IN PRECORDIAL LEADS [QRS DEFLECTION < 1.0 mV IN CHEST LEADS] MODERATE ST DEPRESSION [0.05+ mV ST DEPRESSION] ABNORMAL ECG UNCONFIRMED REPORT Electronically signed by : David Ramirez MD 06/21/2023 18:44:53
[2023-06-19 19:31] LABS: Chloride 104 mmol/L (98-107); Sodium 139 mmol/L (136-145)
[2023-06-19 19:34] LABS: Alanine Aminotransferase 26 U/L (12-78); Albumin Level 4.6 g/dl (3.5-5.0); Albumin/Globulin Ratio 1.1 (1.1-1.8); Alkaline Phosphatase 158 U/L (38-126); Aspartate Amino Transferase 28 U/L (14-36); Bilirubin,Total 0.6 mg/dl (0.2-1.3); Blood Urea Nitrogen 11 mg/dl (7-17); Carbon Dioxide 20 mmol/L (22.0-30.0); Creatinine Clearance Estimated 129 mL/min (50-200); Estimated Glomerular Filt Rate 96 ml/min (>60); GFR (African American) 117 ML/MIN (>60); Globulin 4.3 g/dL (1.3-3.2); Total Protein,Serum 8.9 g/dl (6.3-8.2)
[2023-06-19 19:35] LABS: Calcium 10.6 mg/dl (8.4-10.2); Glucose 107 mg/dl (74-100); Magnesium 1.7 mg/dl (1.6-2.3)
[2023-06-19 19:41] LABS: MANUAL DIFFERENTIAL MANUAL DIFFERENTIAL (MANUAL DIFF)
--- NOTE | 2023-06-19 19:47 | PC.NURSE ---
called resp and advised of VBG
[2023-06-19 19:52] LABS: VBG Base Excess -2.4 mmol/L (-2.4-2.3); VBG HCO3 21.2 mmol/L (23-30); VBG Oxygen Saturation 55.7 % (50-70); VBG PCO2 29.5 mmol/L (35-51); VBG PH 7.48 mmol/L (7.31-7.41); VBG PO2 25.3 mmol/L (28-40); VBG Total CO2 22.1 mmol/L (23-27)
[2023-06-19 19:53] LABS: Troponin I < 0.01 ng/ml (0.00-0.034)
[2023-06-19 20:06] LABS: Thyroid Stimulating Hormone 0.72 uIU/mL (0.465-4.68)
[2023-06-19 20:07] LABS: HCG Qualitative, Serum Negative (Negative)
--- NOTE | 2023-06-19 20:29 | PC.NURSE ---
Pt. to CT
[2023-06-19 20:34] LABS: Lactic Acid 1.8 mmol/L (0.7-2.1)
--- NOTE | 2023-06-19 20:38 | CT_ITS ---
PROCEDURE INFORMATION: Exam: CT Abdomen And Pelvis With Contrast Exam date and time: 06/19/23 09:31 PM Age: 33 years old Clinical indication: Abdominal pain; Localized; Right upper quadrant (ruq); Additional info: Ruq pain TECHNIQUE: Imaging protocol: Computed tomography of the abdomen and pelvis with contrast. Radiation optimization: All CT scans at this facility use at least one of these dose optimization techniques: automated exposure control; mA and/or kV adjustment per patient size (includes targeted exams where dose is matched to clinical indication); or iterative reconstruction. Contrast material: ISOVUE; Contrast volume: 75 ml; Contrast route: IV; REPORTING DATA: Count of CT and Cardiac NM exams in prior 12 months: This patient has received 0 known CTs and 0 known cardiac nuclear medicine studies in the 12 months prior to the current study. COMPARISON: MR PELVIS WO CON 07/14/22 01:20 PM FINDINGS: Tubes, catheters and devices: None noted. Lungs: Lung bases appear clear. Heart: No significant coronary calcifications. No cardiomegaly. No significant pericardial effusion. Liver: Normal. No mass. Gallbladder and bile ducts: Normal. No calcified stones. No ductal dilation. Pancreas: Normal. No ductal dilation. Spleen: Normal. No splenomegaly. Adrenal glands: Normal. No mass. Kidneys and ureters: Normal. No hydronephrosis. Stomach and bowel: Unremarkable. No obstruction. No mucosal thickening. Appendix: No evidence of appendicitis. Intraperitoneal space: Unremarkable. No free air. No significant fluid collection. Retroperitoneal space: No significant retroperitoneal inflammatory changes are noted. Vasculature: Unremarkable. No abdominal aortic aneurysm. Lymph nodes: Unremarkable. No enlarged lymph nodes. Urinary bladder: Unremarkable as visualized. Reproductive: Retroflexed. Tubal ligatures. Bones/joints: Unremarkable. No acute fracture. Soft tissues: Unremarkable. IMPRESSION: No acute findings.
--- NOTE | 2023-06-19 20:53 | PC.NURSE ---
pt resting in bed no needs, at bs
[2023-06-19 21:04] LABS: Lymphocytes % 9 % (10-50); Neutrophils % 91 % (42-76); Total Cells Counted 100
[2023-06-19 21:05] LABS: Platelet Estimate Normal; RBC Morphology Normal
--- NOTE | 2023-06-19 22:17 | PC.NURSE ---
PT REFUSED COVID SWAB AT THIS TIME. NOTIFIED
[2023-06-19 22:52] VITALS: BP 108/48; PULSE 105; RESP 20; TEMP 37.1; O2SAT 94
== END 2023-06-19 22:54 | disposition home or self-care (01) ==
PROVIDERS: Emergency Provider Emergency Medicine
DX: R07.89 Other chest pain (principal); R42 Dizziness and giddiness; R50.9 Fever, unspecified; R06.02 Shortness of breath; B34.9 Viral infection, unspecified; I10 Essential (primary) hypertension; R01.1 Cardiac murmur, unspecified; Q21.0 Ventricular septal defect
CPT/HCPCS: 71045; 71275; 74177; 80053; 82803; 83605; 83735; 84439; 84443; 84484; 84703; 85007; 85025; 87040; 93005; 96361; 96374; 96375; 99285; J0131; J2405; Q9967

== ENCOUNTER 2023-06-24 09:38 | Emergency (ER) | payer BC, SELFPAY ==
[2023-06-24 09:50] VITALS: BP 157/94; PULSE 98; RESP 21; TEMP 36.9; O2SAT 98; BMI 26.2
[2023-06-24 10:01] LABS: UTC Strep Screen (Rapid) Negative (Negative)
--- NOTE | 2023-06-24 10:07 | EXP.UTC ---
Discharge Plan Disposition Patient Disposition: Home, Self-Care Condition: Good Prescriptions Prescriptions: No Action azithromycin [Zithromax Z-Gold] 250 mg tablet See Rx Instructions .ROUTE .COMPLEX Qty: 6 0RF Rx Instructions: For 250 mg dose pack: take 500 mg today (day 1), then 250 mg for 4 days (days 2-5) fluticasone propionate [Flonase Allergy Relief] 50 mcg/actuation spray,suspension 1 spray intranasal DAILY PRN (Reason: allergy symptoms) Qty: 16 0RF Rx Instructions: administer into each nostril moxifloxacin [Vigamox] 0.5 % drops 1 drp ophthalmic (eye) TID 7 Days Qty: 3 0RF prednisone 20 mg tablet 20 mg PO BID Qty: 10 0RF Referrals Follow up/Referrals: Provider,Referral, MD [Primary Care Provider] - See instructions Activity Restrictions/Add. Instructions Additional Instructions/Restrictions: Take all meds as prescribed until gone Liquid IV or Pedialyte or similar for hydration Follow up if not improving Clinical Impressions Clinical Impression: Sinusitis Instructions Patient Instructions: DI for Sinusitis Discharge ED Provider: [place] Biswas [facility] [place] Stated complaint: cough, SALAS, ear pain, sore throat,possible pink eye Time Seen by Provider: 06/24/23 10:05 History of Present Illness Provider Complaint: Patient has cough, congestion, ear pain, sore throat, burning in chest. Has felt poorly for a week and is getting worse. 7 month old has pinkeye and she woke up this morning with eyes matted together. Has pain in her sinuses and behind her eyes. Has green bloody mucous. Has had fever. No vomiting or diarrhea. She is Onset (ago): week(s) (1) Location: face Relieving factors: none Exacerbating factors: none Associated symptoms: cough, fever/chills, headaches and malaise Treatments prior to arrival: none Related Data Previous Rx's Medication Instructions Recorded azithromycin 250 mg tablet See Rx Instructions PO .COMPLEX #6 06/24/23 (Zithromax Z-Gold) tabs fluticasone propionate 50 1 spray intranasal DAILY PRN 06/24/23 mcg/actuation nasal allergy symptoms #16 grams spray,suspension (Flonase Allergy Relief) moxifloxacin 0.5 % eye drops 1 drp ophthalmic (eye) TID 7 days 06/24/23 (Vigamox) #3 mL prednisone 20 mg tablet 20 mg PO BID #10 tabs 06/24/23 Allergies Allergy/AdvReac Type Severity Reaction Status Date / Time latex [LATEX] Allergy Intermediate I-RASH Verified 01/05/23 10:08 cefaclor [From CECLOR] Allergy Unknown Verified 01/05/23 10:08 Penicillins [PENICILLINS] Allergy Unknown Verified 01/05/23 10:08 PFSH PFS Disclaimer: The information contained in this section may have been updated after the patient was seen, as this information can be updated by other users. Medical History Chronic hypertension Heart murmur History of herpes genitalis Hypertension affecting Hypokalemia Preeclampsia in period Right corneal abrasion Status post normal vaginal delivery VSD (ventricular septal defect) Surgical History H/O unilateral salpingectomy right H/O wisdom tooth extraction History of reversal of tubal ligation History of tubal ligation Family History Other No significant family history Social History Smoking Status: Never smoker alcohol intake: never substance use type: denies use current occupational status: employed Travel in the last 8 weeks: None do you feel safe at home: Yes victim of physical abuse: No victim of emotional abuse: No victim of sexual abuse: No ROS Obtained: Yes All systems reviewed & no additional complaints except as documented Constitutional Constitutional: Reports fatigue, Reports fever(s), Reports headache(s) and Reports
[2023-06-24 10:19] VITALS: BP 157/94; PULSE 98; RESP 21; TEMP 36.9; O2SAT 98
== END 2023-06-24 10:23 | disposition home or self-care (01) ==
PROVIDERS: Emergency Provider Physician Assistant
DX: J01.90 Acute sinusitis, unspecified (principal); I10 Essential (primary) hypertension; R01.1 Cardiac murmur, unspecified
CPT/HCPCS: 87880; 99204; 99212; G0463

== ENCOUNTER 2024-03-03 09:19 | Outpatient (CLI) | payer BC, SELFPAY ==
[2024-03-03 10:29] LABS: HCG,Quantitative 73 mIU/ml (0-5.42)
== END 2024-03-03 23:59 | disposition home or self-care (01) ==
LOC: LAB 09:20
PROVIDERS: PCP Nurse Practitioner Family; Visit Provider Obstetrics & Gynecology
DX: Z32.00 Encounter for pregnancy test, result unknown (principal)
CPT/HCPCS: 36415; 84144; 84702

== ENCOUNTER 2024-03-10 08:05 | Outpatient (CLI) | payer BC, SELFPAY ==
[2024-03-10 10:15] LABS: HCG,Quantitative 2658 mIU/ml (0-5.42)
[2024-03-11 08:32] LABS: Progesterone 13.9 ng/mL (.)
== END 2024-03-10 23:59 | disposition home or self-care (01) ==
LOC: LAB 08:06
PROVIDERS: PCP Nurse Practitioner Family; Visit Provider Obstetrics & Gynecology
DX: N92.6 Irregular menstruation, unspecified (principal)
CPT/HCPCS: 36415; 84144; 84702

== ENCOUNTER 2024-04-03 18:00 | Outpatient (CLI) | payer BC, SELFPAY | END 2024-04-03 23:59 | disposition home or self-care (01) | LOC: LAB.DROPOF 04-04 13:54 | PROVIDERS: PCP Obstetrics & Gynecology; Visit Provider Obstetrics & Gynecology | DX: O26.891 Other specified pregnancy related conditions, first trimester (principal); Z3A.08 8 weeks gestation of pregnancy | CPT/HCPCS: 87086 ==

== ENCOUNTER 2024-06-24 12:33 | Outpatient (CLI) | payer BC, SELFPAY ==
--- NOTE | 2024-06-24 12:33 | US_ITS ---
PROCEDURE: US OB /MATERNAL DETAIL CLINICAL INDICATION: 20 week anatomy scan COMPARISON: No exams were available for comparison FINDINGS: Transabdominal sonographic images of the pelvis were obtained. Her established due date is unknown. Single viable intrauterine gestation. Breech position. Placenta: Posteriorplacenta grade 1. There is an average amount of fluid. The cervix appears satisfactory. Closed and measuring 4.4 cm in length. Complete survey performed and was unremarkable on the submitted images as in PACS. No discrete anomalies identified on survey imaging by technologist. Active fetus. Three-vessel cord with satisfactory umbilical cord insertion. 4- chamber heart noted. Situs, aortic arch, LVOT, RVOT, three-vessel view appear normal. Survey of brain & ventricles Unremarkable. Cerebellum, thalamus, choroid plexus, cisterna magna appear normal. Face and neck survey unremarkable. Profile, nasion, lips and nose appeared normal. Diaphragm and chest views unremarkable. Abdomen: Both kidneys noted and unremarkable. There is 3.3 mm of unilateral renal pelvis dilation. Stomach and bladder noted and satisfactory. Spine: Survey of the spine satisfactory with no anomalies identified nor imaged. Cervical, thoracic, lower spine appear normal. Both arms and legs noted. Amniotic Fluid: Adequate. MVP 2.5 cm. Measurements: Average ultrasound age 20weeks 3days. CORDELIA by ultrasound 11/08/2024 Estimated due date by ultrasound age 0111/08/2024. Estimated weight 361g BPD = 20weeks 0 days HC = 20weeks 1day AC = 20weeks 6days FL = 20weeks 4days Heart Rate = 150bpm Cerebellum = 19weeks 2days Humerus = 20weeks 4days HC/AC is 1.13 FL/BPD is 0.72 FL/AC is 0.22 IMPRESSION: 1. Viable fetus in the breech presentation with a posterior placenta grade 1. 2. The fluid is within normal limits with an MVP 2.50 cm. 3. Fetus measures 20 weeks 3 days and CORDELIA will be 11/08/2024. 4. Anatomical scan appears normal. 5. There is 3.3 mm of unilateral renal pelvis dilation. Dictated by: Swapnil Barakat MD 06/24/2024 15:47 Swapnil Barakat MD in [place] 06/24/2024 15:47
== END 2024-06-24 23:59 | disposition home or self-care (01) ==
LOC: RAD 12:33
PROVIDERS: PCP Nurse Practitioner Family; Visit Provider Obstetrics & Gynecology
DX: Z36.89 Encounter for other specified antenatal screening (principal); Z3A.20 20 weeks gestation of pregnancy
CPT/HCPCS: 76811

== ENCOUNTER 2024-08-08 08:24 | Outpatient (CLI) | payer BC, SELFPAY ==
[2024-08-08 09:10] LABS: Basophils % 0.4 % (0.1-2.0); Eosinophils # 0.1 K/mm3 (0.0-0.4); Eosinophils % 1.2 % (0.1-12.0); Hematocrit 35.9 % (37.0-47.0); Hemoglobin 11.8 g/dL (12.2-16.2); Lymphocytes # 1.5 K/mm3 (0.7-4.5); Lymphocytes % 16.1 % (10-50); Mean Corpuscular HGB Conc 32.9 g/dL (31.8-35.4); Mean Corpuscular Hemoglobin 29.3 pg (27.0-31.2); Mean Corpuscular Volume 89.2 fl (81-99); Mean Platelet Volume 7.6 fl (7.4-10.4); Monocytes # 0.3 K/mm3 (0.1-1.0); Monocytes % 3.4 % (1.7-9.3); Neutrophils # 7.2 K/mm3 (1.8-7.8); Neutrophils % 78.9 % (37.0-80.0); Platelet Count 267 K/mm3 (142-424); Red Blood Count 4.02 M/mm3 (4.20-5.40); White Blood Count 9.1 K/mm3 (4.8-10.8)
[2024-08-09 10:18] LABS: Rapid Plasma Reagin Ab Titer Non Reactive titer (NonRea<1:1)
== END 2024-08-08 23:59 | disposition home or self-care (01) ==
LOC: LAB 08:25
PROVIDERS: PCP Nurse Practitioner Family; Visit Provider Obstetrics & Gynecology
DX: Z34.90 Encounter for supervision of normal pregnancy, unspecified, unspecified trimester (principal)
CPT/HCPCS: 36415; 85025; 86593

== ENCOUNTER 2024-08-17 13:18 | Outpatient (CLI) | payer BC, SELFPAY ==
[2024-08-17 13:37] VITALS: BMI 29.9
[2024-08-17 13:42] VITALS: BP 128/81; PULSE 90; RESP 18; TEMP 37.2; O2SAT 100; BMI 29.9
[2024-08-17 13:49] LABS: Microscopic, Urine URINE MICROSCOPIC (MICROSCOPIC)
[2024-08-17 13:52] LABS: Appearance,Urine CLEAR (Clear); Bilirubin,Urine Negative (Negative); Blood, Urine Negative (Negative); Color,Urine YELLOW (Yellow); Glucose,Urine (UA) Negative (Negative); Ketones,Urine Negative (Negative); Leukocyte Esterase,Urine Negative (Negative); Nitrate,Urine Negative (Negative); Protein,Urine Negative (Negative); Specific Gravity, Urine >= 1.030 (1.005-1.030)
[2024-08-17 14:05] LABS: Amorphous Sediment,Urine Trace /lpf; Bacteria,Urine Trace /lpf
[2024-08-17 14:13] LABS: Barbiturates Screen,Urine Negative ng/ml (<200)
[2024-08-17 14:14] LABS: Benzodiazepines Screen,Urine Negative ng/ml (<200)
[2024-08-17 14:15] LABS: Amphetamine/Metha Screen,Urine Negative ng/ml (<1000); Cannabinoid Screen,Urine Negative ng/ml (<50)
[2024-08-17 14:16] LABS: Cocaine Screen,Urine Negative ng/ml (<300); Methadone Screen,Urine Negative ng/ml (<300)
[2024-08-17 14:17] LABS: Opiate Screen,Urine Negative ng/ml (<300)
[2024-08-17 14:18] LABS: Phencyclidine Screen,Urine Negative ng/ml (<25)
== END 2024-08-17 14:34 | disposition home or self-care (01) ==
LOC: OBOUT 13:20 → OB 13:22
PROVIDERS: PCP Nurse Practitioner Family; Visit Provider Obstetrics & Gynecology
DX: O36.8130 Decreased fetal movements, third trimester, not applicable or unspecified (principal); Z3A.28 28 weeks gestation of pregnancy
CPT/HCPCS: 80307; 81001; G0463

== ENCOUNTER 2024-08-22 10:55 | Outpatient (CLI) | payer BC, SELFPAY ==
[2024-08-22 11:35] LABS: Basophils % 0.4 % (0.1-2.0); Eosinophils # 0.1 K/mm3 (0.0-0.4); Eosinophils % 0.9 % (0.1-12.0); Hematocrit 32.9 % (37.0-47.0); Hemoglobin 11.2 g/dL (12.2-16.2); Lymphocytes # 1.7 K/mm3 (0.7-4.5); Lymphocytes % 22.5 % (10-50); Mean Corpuscular HGB Conc 34.2 g/dL (31.8-35.4); Mean Corpuscular Hemoglobin 29.3 pg (27.0-31.2); Mean Corpuscular Volume 85.7 fl (81-99); Mean Platelet Volume 7.8 fl (7.4-10.4); Monocytes # 0.5 K/mm3 (0.1-1.0); Monocytes % 6.2 % (1.7-9.3); Neutrophils # 5.4 K/mm3 (1.8-7.8); Neutrophils % 70.1 % (37.0-80.0); Platelet Count 251 K/mm3 (142-424); Red Blood Count 3.83 M/mm3 (4.20-5.40); Red Cell Distribution Width 14.2 % (11.5-17.5); White Blood Count 7.7 K/mm3 (4.8-10.8)
[2024-08-22 13:51] LABS: HIV (1&2) Antibody Rapid NONREACTIVE (NONREACTIVE)
[2024-08-23 05:11] LABS: HCV Ab Non Reactive (Non Reactive); Hepatitis B Surface Antigen Negative (Negative)
[2024-08-23 07:29] LABS: Rubella Antibodies, IgG 3.06 index (Immune >0.99)
== END 2024-08-22 23:59 | disposition home or self-care (01) ==
LOC: LAB 10:56
PROVIDERS: PCP Nurse Practitioner Family; Visit Provider Obstetrics & Gynecology
DX: Z34.90 Encounter for supervision of normal pregnancy, unspecified, unspecified trimester (principal)
CPT/HCPCS: 36415; 85025; 86762; 86803; 86850; 87340; 87389

== ENCOUNTER 2024-09-27 21:21 | Observation (INO) | payer BC, SELFPAY ==
[2024-09-27 20:47] VITALS: BMI 29.9
[2024-09-27 20:58] VITALS: BP 156/84; PULSE 110; RESP 18; TEMP 37.1; O2SAT 100; BMI 29.9
[2024-09-27 21:13] LABS: Microscopic, Urine URINE MICROSCOPIC (MICROSCOPIC)
[2024-09-27 21:14] LABS: Appearance,Urine CLEAR (Clear); Bilirubin,Urine Negative (Negative); Blood, Urine Negative (Negative); Color,Urine YELLOW (Yellow); Glucose,Urine (UA) Negative (Negative); Ketones,Urine Negative (Negative); Leukocyte Esterase,Urine Negative (Negative); Nitrate,Urine Negative (Negative); Protein,Urine Negative (Negative); Specific Gravity, Urine <= 1.005 (1.005-1.030); Urobilinogen,Urine 0.2 EU/dl (0.2)
[2024-09-27] MEDS: LABETALOL 100MG TABLET 200 MG PO (21:15)
[2024-09-27 21:24] LABS: WBC,Urine Occasional #/hpf (0-3)
[2024-09-27 21:25] LABS: Amphetamine/Metha Screen,Urine Negative ng/ml (<1000)
[2024-09-27 21:26] LABS: Barbiturates Screen,Urine Negative ng/ml (<200)
[2024-09-27 21:27] LABS: Benzodiazepines Screen,Urine Negative ng/ml (<200); Cannabinoid Screen,Urine Negative ng/ml (<50)
[2024-09-27 21:28] LABS: Cocaine Screen,Urine Negative ng/ml (<300); Methadone Screen,Urine Negative ng/ml (<300)
[2024-09-27 21:29] LABS: Opiate Screen,Urine Negative ng/ml (<300)
[2024-09-27 21:30] LABS: Phencyclidine Screen,Urine Negative ng/ml (<25)
[2024-09-27 21:55] VITALS: BP 128/75; PULSE 103; RESP 17; TEMP 37.1; O2SAT 98
[2024-09-27 22:19] LABS: Basophils # 0.1 K/mm3 (0-0.2); Basophils % 0.7 % (0.1-2.0); Eosinophils # 0.1 K/mm3 (0.0-0.4); Eosinophils % 1.4 % (0.1-12.0); Hematocrit 33.3 % (37.0-47.0); Hemoglobin 11.3 g/dL (12.2-16.2); Lymphocytes % 14.1 % (10-50); Mean Corpuscular HGB Conc 33.9 g/dL (31.8-35.4); Mean Corpuscular Hemoglobin 27.7 pg (27.0-31.2); Mean Corpuscular Volume 81.5 fl (81-99); Mean Platelet Volume 7.9 fl (7.4-10.4); Monocytes # 0.4 K/mm3 (0.1-1.0); Monocytes % 5.3 % (1.7-9.3); Neutrophils # 5.8 K/mm3 (1.8-7.8); Neutrophils % 78.5 % (37.0-80.0); Platelet Count 265 K/mm3 (142-424); Red Blood Count 4.08 M/mm3 (4.20-5.40); Red Cell Distribution Width 14.8 % (11.5-17.5); White Blood Count 7.4 K/mm3 (4.8-10.8)
[2024-09-27 22:20] LABS: Chloride 106 mmol/L (98-107); Sodium 137 mmol/L (136-145)
[2024-09-27 22:23] LABS: Alanine Aminotransferase 15 U/L (12-78); Aspartate Amino Transferase 18 U/L (14-36); Blood Urea Nitrogen 6 mg/dl (7-17); Carbon Dioxide 23 mmol/L (22.0-30.0); Creatinine Clearance Estimated 204 mL/min (50-200); Estimated Glomerular Filt Rate 141 ml/min (>60); GFR (African American) 171 ML/MIN (>60)
[2024-09-27 22:24] LABS: Calcium 10.7 mg/dl (8.4-10.2); Glucose 106 mg/dl (74-100)
[2024-09-27 22:29] LABS: Uric Acid 3.2 mg/dl (2.5-6.2)
[2024-09-27 22:31] LABS: Activated Partial Thrombo Time 23.3 seconds (22.8-30.6); Fibrinogen 520 mg/dL (229.9-363.5); INR 0.83 (0.9-1.1); Prothrombin Time 9.5 seconds (10.1-12.5)
[2024-09-27 22:50] LABS: Magnesium 1.8 mg/dl (1.6-2.3)
[2024-09-27] MEDS: POTASSIUM CHLORIDE 20MEQ TAB 40 MEQ PO (23:00)
[2024-09-28] MEDS: MAGNESIUM SULFATE IN WATER 2 GM/50 ML PIGGYBACK IV (02:40)
[2024-09-28] MEDS: POTASSIUM CHLORIDE 20MEQ TAB 40 MEQ PO ×2 (03:14→09:27)
[2024-09-28] MEDS: ACETAMINOPHEN 325MG TAB 650 MG PO (05:15)
--- NOTE | 2024-09-28 06:00 | US_ITS ---
PROCEDURE INFORMATION: Exam: US Biophysical Profile Without Non-Stress Test Exam date and time: 09/28/2024 8:16 AM Age: 34 years old Clinical indication: Other: Decreased movement; ; Additional info: Decreased movement. High blood pressure. Estimated gestational age by last menstrual period is 34 weeks 1 day. TECHNIQUE: Imaging protocol: US biophysical profile without non-stress testing. COMPARISON: US OB /MATERNAL DETAIL 06/24/2024 12:38 PM FINDINGS: Gestation: Single intrauterine is identified. position is cephalic. Gastric bubble is present. Three-vessel cord is present. Female fetus. heart rate: 135 bpm. Four-chamber heart noted. Placenta: Placenta is fundal in location. Amniotic fluid index: RAQUEL is 14.87 cm. BIOPHYSICAL PROFILE: breathing (BPP): 2 /2 gross body movement (BPP): 2 /2 tone (BPP): 2 /2 Amniotic fluid (BPP): 2 /2 Biophysical profile score (BPP): 8 /8 MATERNAL ANATOMY: Cervix: Cervical length measures 4.14 cm. IMPRESSION: Single intrauterine with heart rate of 135 bpm and biophysical profile score measuring 8/8.
[2024-09-28 07:46] VITALS: BP 132/78; PULSE 108; RESP 18; TEMP 36.2; O2SAT 99
--- NOTE | 2024-09-28 09:27 | HMH.PHAINT1 ---
Pharmacy Intervention Comments: MEDICATION RECONCILIATION COMPLETE USING MOST RECENT OB OFFICE VISIT NOTE.
[2024-09-28] MEDS: LABETALOL 100MG TABLET 100 MG PO (09:46)
--- NOTE | 2024-09-28 14:44 | P.HPDS_ITS ---
General Admission date:: 09/27/24 Discharge date: 09/28/24 *Admission Date: 09/27/24 *Chief complaint: elevated Blood pressure and DFM *History of present illness: Presented sunday with elevated BP and decreased movement. see hospital course [facility] Disclaimer: The information contained in this section may have been updated after the patient was seen, as this information can be updated by other users. Medical History Gestational diabetes mellitus, class A1 Nausea and vomiting during History of pre-eclampsia in prior , currently Vaginal bleeding affecting early Hypokalemia Chronic hypertension History of herpes genitalis Hypertension affecting VSD (ventricular septal defect) Heart murmur Surgical History H/O wisdom tooth extraction H/O unilateral salpingectomy right History of reversal of tubal ligation History of tubal ligation Family History Other No significant family history Social History Smoking Status: Never smoker alcohol intake: never substance use type: denies use current occupational status: unemployed Travel in the last 8 weeks: None do you feel safe at home: Yes victim of physical abuse: No victim of emotional abuse: No victim of sexual abuse: No Other Medical History Have you received the Flu Vaccine for this season: No Have you received the Pneumonia Vaccine: No Review of Systems Review of Systems Review of systems (narrative): Review of Systems Constitutional: Denies fever, chills, and sweats Eyes: Denies vision change/ pain Respiratory: Denies cough and shortness of breath Cardiovascular: Denies chest pain and lightheadedness Gastrointestinal: denies abdominal pain. endorses FM. Denies nausea, vomiting. Genitourinary: Denies dysuria and incontinence Neurological: Denies change in speech or headaches. denies vision changes Exam Data for Last 24 hours Vital signs and Labs for Last 24 Hours: Temp Pulse Resp BP Pulse Ox O2 Del Method 97.2 F L 108 H 18 132/78 99 Room Air 09/28/24 07:46 09/28/24 07:46 09/28/24 07:46 09/28/24 07:46 09/28/24 07:46 09/28/24 07:46 Laboratory Results - last 24 hr 09/27/24 20:50: Urine Color Yellow, Urine Appearance Clear, Urine pH 6.0, Ur Specific [place] <= 1.005, Urine Protein Negative, Urine Glucose (UA) Negative, Urine Ketones Negative, Urine Blood Negative, Urine Nitrate Negative, Urine Bilirubin Negative, Urine Urobilinogen 0.2, Ur Leukocyte Esterase Negative, Urine RBC None, Urine WBC Occasional, Ur Squamous Epith Cells 3-5, Urine Bacteria None, Urine Opiates Screen Negative, Urine Methadone Screen Negative, Ur Barbituates Screen Negative, Ur Phencyclidine Scrn Negative, Ur Amphetamines Screen Negative, U Benzodiazepines Scrn Negative, Urine Cocaine Screen Negative, U Marijuana (THC) Screen Negative 09/27/24 21:40: WBC 7.4, RBC 4.08 L, Hgb 11.3 L, Hct 33.3 L, MCV 81.5, MCH 27.7, MCHC 33.9, RDW 14.8, Plt Count 265, MPV 7.9, Neut % (Auto) 78.5, Lymph % (Auto) 14.1, [place] % (Auto) 5.3, Eos % (Auto) 1.4, Baso % (Auto) 0.7, Neut # (Auto) 5.8, Lymph # (Auto) 1.0, [place] # (Auto) 0.4, Eos # (Auto) 0.1, Baso # (Auto) 0.1, PT 9.5 L, INR 0.83 L, APTT 23.3, Fibrinogen 520 H, Sodium 137, Potassium 3.0 L, Chloride 106, Carbon Dioxide 23, Anion Gap 11.0, BUN 6 L, Creatinine 0.50 L, Estimated Creat Clear 204, Estimated GFR 141, Est GFR ( Amer) 171, Glucose 106 H, Uric Acid 3.2, Calcium 10.7 H, AST 18, ALT 15 09/27/24 : Magnesium 1.8 I & O for Last 24 hours: Intake & Output 09/25/24 09/26/24 09/27/24 09/28/24 23:59 23:59 23:59 23:59 Weight 180 lb Constitutional Constitutional: no acute distress *Routine HEENT Exam Head: Present normocephalic Eye: Present EOMI and PERRL ENT: Present mucous membranes moist *Routine Neck Exam Neck: Present supple; Absent lymphadenopathy *Routine Respiratory Exam Respiratory: Present CTA bilaterally *Routine Cardiovascular Exam Cardiovascular: Present RRR *Routine Abdominal Exam Abdominal: Present soft and normoactive bowel sounds; Absent tenderness *Routine Rectal Exam Rectal:: deferred *Routine Genitalia Exam Genitalia:: deferred *Routine Extremities Exam Extremities: Absent cyanosis, clubbing or edema Comments: bilateral lower extremity reflexes appropriate *Routine Skin Exam Skin: Present warm; Absent rash *Routine Neurological Exam Neurological: Present alert and oriented X3 Meds Home Medications and Allergies Home Medications ?Medication ?Instructions ?Recorded ?Confirmed ?Type omeprazole 10 mg capsule,delayed 10 mg PO DAILY 08/22/24 09/28/24 History release labetalol 100 mg tablet 100 mg PO BID #60 tabs 09/28/24 Rx New Prescriptions to Start Prescriptions: labetalol Alta Ennis Allergies Allergy/AdvReac Type Severity Reaction Status Date / Time latex (LATEX) Allergy Intermediate I-RASH Verified 09/24/24 13:13 cefaclor (From CECLOR) Allergy Unknown Verified 09/24/24 13:13 Penicillins (PENICILLINS) Allergy Unknown Verified 09/24/24 13:13 Hospital Course Hospital Course Hospital Course: Radha skinner a pleasant 34yo presented to L&D yesterday with decreased movement and elevated blood pressures. She was observed and 24 hour urine collection started. I started labetalol 200mg BID which ultimately was a little too strong and she was sent home with 100mg BID. She will check her BP at home and has follow up this week. Obtained [facility] labs which were all within normal limits. She was noted to have critically low potassium and it was replaced while inpatient, per protocol. She desired to be discharged home. At discharge she was 34w0d gestation and her BP was stable. She had a mild headache that was relieved with fiorcet as i was concerned it may be secondary to caffeine. She was observed closely as her last delivery was at 36weeks gestation secondary to chronic HTN with exacerbation of headache and vision changes. Last her BP required labetalol 200mgBID. She was admitted for preeclampsia and given magnesium at that time. On discharge she reported good movement, NST was reactive. BP was well controlled. DC with labetalol 100mg BID. Per pt request she will take her urine with her, finish collection and turn her 24 hour urine in tomorrow morning. Results Data Completed and Pending Labs on day of discharge: Labs from last 24 hours 09/27/24 09/27/24 09/27/24 Unknown 21:40 20:50 WBC 7.4 RBC 4.08 L Hgb 11.3 L Hct 33.3 L MCV 81.5 MCH 27.7 MCHC 33.9 RDW 14.8 Plt Count 265 MPV 7.9 Neut % (Auto) 78.5 Lymph % (Auto) 14.1 [place] % (Auto) 5.3 Eos % (Auto) 1.4 Baso % (Auto) 0.7 Neut # (Auto) 5.8 Lymph # (Auto) 1.0 [place] # (Auto) 0.4 Eos # (Auto) 0.1 Baso # (Auto) 0.1 PT 9.5 L INR 0.83 L APTT 23.3 Fibrinogen 520 H Sodium 137 Potassium 3.0 L Chloride 106 Carbon Dioxide 23 Anion Gap 11.0 BUN 6 L Creatinine 0.50 L Estimated Creat Clear 204 Estimated GFR 141 Est GFR ( Amer) 171 Glucose 106 H Uric Acid 3.2 Calcium 10.7 H Magnesium 1.8 AST 18 ALT 15 Urine Color Yellow Urine Appearance Clear Urine pH 6.0 Ur Specific [place] <= 1.005 Urine Protein Negative Urine Glucose (UA) Negative Urine Ketones Negative Urine Blood Negative Urine Nitrate Negative Urine Bilirubin Negative Urine Urobilinogen 0.2 Ur Leukocyte Esterase Negative Urine RBC None Urine WBC Occasional Ur Squamous Epith Cells 3-5 Urine Bacteria None Urine Opiates Screen Negative Urine Methadone Screen Negative Ur Barbituates Screen Negative Ur Phencyclidine Scrn Negative Ur Amphetamines Screen Negative U Benzodiazepines Scrn Negative Urine Cocaine Screen Negative U Marijuana (THC) Screen Negative Discharge Plan Disposition Patient Disposition: Home, Self-Care Follow up Plan Follow up with: Vale Castellano DO [Staff Physician] - 1 week Prescriptions/Medication Reconciliation: New labetalol 100 mg Tablet 100 mg PO BID Qty: 60 2RF Continued omeprazole 10 mg capsule,delayed release(DR/EC) 10 mg PO DAILY Problem Reconciliation Problems Reviewed?: Yes Patient Discharge Instructions ACTIVITY: Continue current activity DIET: regular diet Additional Instructions: Blood pressure and preeclampsia instructions 1. Please take your blood pressure twice daily. 2. Please call if greater than 2 values are higher than: 150 systolic (the top number) or 100 diastolic (the bottom number). 3. Please go to the emergency room or labor and delivery triage if any value is higher than: 160 systolic (the top number) or 110 diastolic (the bottom number). 4. Please call if unrelenting headache (does not go away with rest or Tylenol or ibuprofen), changes in vision (spots, floaters, flashes of light), chest pain, shortness of breath, or right upper quadrant (liver) abdominal pain. Alta Ennis DO [facility] [phone] Print Language: Malay Providers Primary Care Provider: Gale Morataya Admantonio Provider: Alta Ennis Attending Provider: Alta Ennis
[2024-09-28] MEDS: BUTALB/ACETAMINOPHEN/CAFFEINE 50MG/325MG/40MG TAB 1 EACH PO (14:56)
[2024-09-28 15:09] LABS: Albumin Level 3.9 g/dl (3.5-5.0)
== END 2024-09-28 15:55 | disposition home or self-care (01) ==
LOC: OBOUT 21:23 → OB 21:23
PROVIDERS: Admitting Provider Obstetrics & Gynecology; PCP Nurse Practitioner Family; Visit Provider Obstetrics & Gynecology
DX: O10.92 Unspecified pre-existing hypertension complicating childbirth (principal); O36.8130 Decreased fetal movements, third trimester, not applicable or unspecified; Z3A.36 36 weeks gestation of pregnancy; O99.283 Endocrine, nutritional and metabolic diseases complicating pregnancy, third trimester; E87.6 Hypokalemia
CPT/HCPCS: 59025; 76811; 76819; 76820; 80048; 80307; 81001; 82040; 83735; 84450; 84460; 84550; 85025; 85384; 85610; 85730; G0378; J3475

== ENCOUNTER 2024-09-29 10:11 | Outpatient (CLI) | payer BC, SELFPAY ==
[2024-09-29 21:35] LABS: Creatinine,Urine Random 64 mg/dL (Not Estab.)
[2024-09-30 00:06] LABS: Collection Time,Urine 1700 hours; Creatinine 24 Hour,Urine 1088 mg/24hr (630-2500); Total Protein 24 Hour,Urine 391 mg/24 hr (40-90); Total Volume,Urine 1700 mL (600-1600)
== END 2024-09-29 23:59 | disposition home or self-care (01) ==
LOC: LAB 10:11
PROVIDERS: Obstetrics & Gynecology; PCP Nurse Practitioner Family; Visit Provider Obstetrics & Gynecology
DX: O14.90 Unspecified pre-eclampsia, unspecified trimester (principal)
CPT/HCPCS: 82570; 84155

== ENCOUNTER 2024-09-29 11:25 | Outpatient (CLI) | payer BC, SELFPAY ==
[2024-09-29 11:30] VITALS: BP 126/73; PULSE 101; RESP 16; TEMP 36.7; O2SAT 98; BMI 29.9
[2024-09-29 11:31] VITALS: BMI 29.9
[2024-09-29 11:47] LABS: POC Glucose,Bedside 127 (70-110)
== END 2024-09-29 12:11 | disposition home or self-care (01) ==
LOC: OBOUT 11:28 → OB 11:28
PROVIDERS: PCP Nurse Practitioner Family; Visit Provider Obstetrics & Gynecology
DX: O26.893 Other specified pregnancy related conditions, third trimester (principal); I95.89 Other hypotension; Z3A.33 33 weeks gestation of pregnancy
CPT/HCPCS: 82962; G0463

== ENCOUNTER 2024-10-01 12:26 | Outpatient (CLI) | payer BC, SELFPAY ==
--- NOTE | 2024-10-01 12:28 | US_ITS ---
PROCEDURE: US OB BIOPHYSICAL PROFILE CLINICAL INDICATION: Pre-Eclampsia COMPARISON: US US OB /MATERNAL DETAIL from 06/24/2024 US US OB BPP W/FET-MAT S/D from 09/28/2024 FINDINGS: Transabdominal sonographic images of the uterus were obtained. From her established due date she is 34weeks 4days. The following parameters are obtained: Viable Fetus in the cephalic presentation with a posterior placenta grade 2. The cervix measures 4.07 cm heart rate= 147bpm Amniotic fluid index: 15.3cm, MVP 4.65cm Qualitative AFV:2 Breathing movements: 2 Gross Body Movements: 2 Tone: 2 Biophysical profile score: 8 No obvious anomalies evident.Kidneys, profile, bladder, stomach, Four-chamber heart, three-vessel cord appear normal. IMPRESSION: 1. Viable fetus in the cephalic presentation with a posterior placenta grade 2. 2. The fluid is within normal limits with an amniotic fluid index 15.3 cm, MVP 4.65 cm. 3. Biophysical profile is 8 out of 8 with good breathing movement and movement seen. 4. Limited anatomical scan appears normal. Dictated by: Swapnil Barakat MD 10/02/2024 02:38 Swapnil Barakat MD in [place] 10/02/2024 02:38
== END 2024-10-01 23:59 | disposition home or self-care (01) ==
LOC: RAD 12:26
PROVIDERS: PCP Nurse Practitioner Family; Visit Provider Obstetrics & Gynecology
DX: O14.93 Unspecified pre-eclampsia, third trimester (principal); O09.293 Supervision of pregnancy with other poor reproductive or obstetric history, third trimester; O24.410 Gestational diabetes mellitus in pregnancy, diet controlled; O11.3 Pre-existing hypertension with pre-eclampsia, third trimester
CPT/HCPCS: 76819; 76820

== ENCOUNTER 2024-10-03 12:39 | Outpatient (CLI) | payer BC, SELFPAY | END 2024-10-03 23:59 | disposition home or self-care (01) | LOC: LAB.DROPOF 12:39 | PROVIDERS: PCP Nurse Practitioner Family; Visit Provider Obstetrics & Gynecology | DX: O14.93 Unspecified pre-eclampsia, third trimester (principal); O24.410 Gestational diabetes mellitus in pregnancy, diet controlled | CPT/HCPCS: 86403 ==

== ENCOUNTER 2024-10-05 19:25 | Outpatient (CLI) | payer BC, SELFPAY ==
[2024-10-05 19:59] VITALS: BMI 30.5
[2024-10-05 20:16] VITALS: BP 131/80; PULSE 90; RESP 18; TEMP 36.9; O2SAT 100; BMI 30.5
[2024-10-05 20:17] LABS: Microscopic, Urine URINE MICROSCOPIC (MICROSCOPIC)
[2024-10-05 20:47] LABS: Bilirubin,Urine Negative (Negative); Blood, Urine Negative (Negative); Color,Urine YELLOW (Yellow); Glucose,Urine (UA) Negative (Negative); Ketones,Urine Negative (Negative); Leukocyte Esterase,Urine Negative (Negative); Nitrate,Urine Negative (Negative); PH,Urine 6.5 (5.0-8.5); Protein,Urine Negative (Negative); Specific Gravity, Urine 1.025 (1.005-1.030)
[2024-10-05 20:52] LABS: Appearance,Urine Slightly Cloudy (Clear)
[2024-10-05 20:57] LABS: Benzodiazepines Screen,Urine Negative ng/ml (<200)
[2024-10-05 20:58] LABS: Amphetamine/Metha Screen,Urine Negative ng/ml (<1000); Barbiturates Screen,Urine Negative ng/ml (<200)
[2024-10-05 20:59] LABS: Cannabinoid Screen,Urine Negative ng/ml (<50); Cocaine Screen,Urine Negative ng/ml (<300)
[2024-10-05 21:00] LABS: Methadone Screen,Urine Negative ng/ml (<300)
[2024-10-05 21:01] LABS: Opiate Screen,Urine Negative ng/ml (<300); Phencyclidine Screen,Urine Negative ng/ml (<25)
[2024-10-05 21:18] LABS: Bacteria,Urine Trace /lpf
== END 2024-10-05 21:08 | disposition home or self-care (01) ==
LOC: OBOUT 19:26 → OB 19:27
PROVIDERS: PCP Nurse Practitioner Family; Visit Provider Obstetrics & Gynecology
DX: O13.3 Gestational [pregnancy-induced] hypertension without significant proteinuria, third trimester (principal); Z3A.35 35 weeks gestation of pregnancy
CPT/HCPCS: 80307; 81001; G0463

== ENCOUNTER 2024-10-07 13:23 | Outpatient (CLI) | payer BC, SELFPAY ==
--- NOTE | 2024-10-07 13:27 | US_ITS ---
PROCEDURE: US OB BPP W/FET-MAT S/D CLINICAL INDICATION: non reactive nst COMPARISON: US US OB /MATERNAL DETAIL from 06/24/2024 US US OB BPP W/FET-MAT S/D from 09/28/2024 US US OB BIOPHYSICAL PROFILE from 10/01/2024 FINDINGS: Transabdominal sonographic images of the uterus were obtained. From her established due date she is 35weeks 2days. The following parameters are obtained: Viable Fetus in the cephalic presentation with a posterior fundal placenta grade 2. Average ultrasound age is 35weeks 1day Estimated weight 2,542g, 5 lb 10 oz Cervix measures 4.42 cm. Measurements: heart Rate = 146bpm BPD = 34weeks 6days, 42 percentile HC = 36weeks 0 days, 32 percentile AC = 34weeks 6days, 41 percentile FL = 34weeks 6days, 32 percentile HC/AC is 1.04 FL/BPD is 0.78 FL/AC is 0.22 37 percentile Amniotic fluid index: 10.33cm, MVP 2.78 cm Qualitative AFV:2 Breathing movements: 2 Gross Body Movements: 2 Tone: 2 Biophysical profile score: 8 Doppler evaluation of the umbilical artery: SD ratio: 2.49-3.49 Resistive index: 0.66 No obvious anomalies evident.Kidneys, profile, stomach, bladder, nose, lips, four-chamber heart, three-vessel cord appear normal. IMPRESSION: 1. Viable fetus in the cephalic presentation with a posterior fundal placenta grade 2. 2. The fluid is within normal limits with an amniotic fluid index 10.33 cm, MVP 2.78 cm. 3. Biophysical profile is 8/8 with good breathing movement and movement seen. 4. SD ratio is normal 2.49-3.49. 5. There has been good interval growth with the fetus currently 37 percentile. 6. Limited anatomical scan appears normal. Dictated by: Swapnil Barakat MD 10/07/2024 15:46 Swapnil Barakat MD in [place] 10/07/2024 15:46
== END 2024-10-07 23:59 | disposition home or self-care (01) ==
LOC: RAD 13:24
PROVIDERS: PCP Nurse Practitioner Family; Visit Provider Obstetrics & Gynecology
DX: O14.93 Unspecified pre-eclampsia, third trimester (principal); Z3A.35 35 weeks gestation of pregnancy
CPT/HCPCS: 76811; 76819; 76820

== ENCOUNTER 2024-10-13 08:25 | Outpatient (CLI) | payer BC, SELFPAY ==
--- NOTE | 2024-10-13 08:25 | US_ITS ---
PROCEDURE: US OB BIOPHYSICAL PROFILE CLINICAL INDICATION: pre-eclampsia COMPARISON: No exams were available for comparison FINDINGS: Transabdominal sonographic images of the uterus were obtained. From her established due date she is 36weeks 1day. The following parameters are obtained: Viable Fetus in the cephalic presentation with a fundal placenta grade 2. Average ultrasound age is 36weeks 0 days Estimated weight 2,720g, 6 lb 0 oz Measurements: heart Rate = 136bpm BPD = 36weeks 1day, 57 percentile HC = 36weeks 4days, 28 percent AC = 35weeks 2days, 35 percent FL = 35weeks 5days, 34 percentile HC/AC is 1.03 FL/BPD is 0.78 FL/AC is 0.22 37 percentile Amniotic fluid index: 7.19cm, MVP 6.34 cm Qualitative AFV:2 Breathing movements: 2 Gross Body Movements: 2 Tone: 2 Biophysical profile score: 8 No obvious anomalies evident.Kidneys, bladder, stomach, four-chamber heart, three-vessel cord appear normal. IMPRESSION: 1. Viable fetus in the cephalic presentation with a fundal placenta grade 2. 2. The fluid is within normal limits with an MVP 7.19 cm, MVP 6.34 cm. 3. Biophysical profile is 8/8 with good breathing movement and movement seen. 4. There has been good interval growth with the fetus currently 37th percentile. 5. Limited anatomical scan appears normal. Dictated by: Swapnil Barakat MD 10/14/2024 07:41 Swapnil Barakat MD in [place] 10/14/2024 07:41
== END 2024-10-13 23:59 | disposition home or self-care (01) ==
LOC: RAD 08:25
PROVIDERS: PCP Nurse Practitioner Family; Visit Provider Obstetrics & Gynecology
DX: O14.93 Unspecified pre-eclampsia, third trimester (principal)
CPT/HCPCS: 76816; 76819

== ENCOUNTER 2024-10-15 22:22 | Outpatient (CLI) | payer BC, SELFPAY ==
[2024-10-15 22:30] VITALS: BMI 31.2
[2024-10-15 22:53] VITALS: BP 142/82; PULSE 65; RESP 17; TEMP 36.8; O2SAT 100; BMI 31.2
[2024-10-15 22:58] LABS: Microscopic, Urine URINE MICROSCOPIC (MICROSCOPIC)
[2024-10-15 23:04] LABS: Appearance,Urine CLEAR (Clear); Bilirubin,Urine Negative (Negative); Blood, Urine Negative (Negative); Color,Urine YELLOW (Yellow); Glucose,Urine (UA) Negative (Negative); Ketones,Urine 1+ (Negative); Leukocyte Esterase,Urine Negative (Negative); Nitrate,Urine Negative (Negative); Protein,Urine Negative (Negative); Specific Gravity, Urine 1.015 (1.005-1.030); Urobilinogen,Urine 0.2 EU/dl (0.2)
[2024-10-15 23:11] LABS: Bacteria,Urine 1+ /lpf; Fetal Membrane Rupture (Rapid) Negative (Negative)
[2024-10-15 23:14] LABS: Barbiturates Screen,Urine Negative ng/ml (<200)
[2024-10-15 23:15] LABS: Benzodiazepines Screen,Urine Negative ng/ml (<200)
[2024-10-15 23:16] LABS: Amphetamine/Metha Screen,Urine Negative ng/ml (<1000); Cannabinoid Screen,Urine Negative ng/ml (<50)
[2024-10-15 23:17] LABS: Cocaine Screen,Urine Negative ng/ml (<300)
[2024-10-15 23:18] LABS: Methadone Screen,Urine Negative ng/ml (<300); Opiate Screen,Urine Negative ng/ml (<300)
[2024-10-15 23:19] LABS: Phencyclidine Screen,Urine Negative ng/ml (<25)
[2024-10-16 01:23] LABS: Basophils % 0.6 % (0.1-2.0); Eosinophils % 1.5 % (0.1-12.0); Hematocrit 28.2 % (37.0-47.0); Hemoglobin 9.1 g/dL (12.2-16.2); Lymphocytes # 1.6 K/mm3 (0.7-4.5); Lymphocytes % 19.8 % (10-50); Mean Corpuscular HGB Conc 32.3 g/dL (31.8-35.4); Mean Corpuscular Hemoglobin 25.9 pg (27.0-31.2); Mean Corpuscular Volume 80.3 fl (81-99); Mean Platelet Volume 10.5 fl (7.4-10.4); Monocytes # 0.5 K/mm3 (0.1-1.0); Monocytes % 6.1 % (1.7-9.3); Neutrophils # 5.6 K/mm3 (1.8-7.8); Platelet Count 279 K/mm3 (142-424); Red Blood Count 3.51 M/mm3 (4.20-5.40); Red Cell Distribution Width 14.3 % (11.5-17.5); White Blood Count 7.8 K/mm3 (4.8-10.8)
[2024-10-16 01:24] LABS: Alanine Aminotransferase 16 U/L (12-78); Anion Gap 10.2 mEq/L (5-15); Aspartate Amino Transferase 23 U/L (14-36); Basophils # 0.1 K/mm3 (0-0.2); Blood Urea Nitrogen 4 mg/dl (7-17); Calcium 10.4 mg/dl (8.4-10.2); Carbon Dioxide 22 mmol/L (22.0-30.0); Chloride 106 mmol/L (98-107); Creatinine Clearance Estimated 207 mL/min (50-200); Eosinophils # 0.1 K/mm3 (0.0-0.4); Estimated Glomerular Filt Rate 141 ml/min (>60); GFR (African American) 171 ML/MIN (>60); Glucose 96 mg/dl (74-100); Potassium 3.2 mmoL/L (3.5-5.1); Sodium 135 mmol/L (136-145); Uric Acid 3.8 mg/dl (2.5-6.2)
[2024-10-16 01:27] LABS: Activated Partial Thrombo Time 23.9 seconds (22.8-30.6); Fibrinogen 395 mg/dL (229.9-363.5); INR 0.86 (0.9-1.1); Prothrombin Time 9.8 seconds (10.1-12.5)
== END 2024-10-16 02:35 | disposition home or self-care (01) ==
LOC: OBOUT 22:23 → OB 22:24
PROVIDERS: PCP Nurse Practitioner Family; Visit Provider Nurse Practitioner Obstetrics & Gynecology
DX: O42.913 Preterm premature rupture of membranes, unspecified as to length of time between rupture and onset of labor, third trimester (principal); Z3A.36 36 weeks gestation of pregnancy
CPT/HCPCS: 80048; 80307; 81001; 84112; 84450; 84460; 84550; 85025; 85384; 85610; 85730; G0463

== ENCOUNTER 2024-10-16 13:01 | Outpatient (CLI) | payer BC, SELFPAY ==
[2024-10-16 13:05] VITALS: BP 134/67; PULSE 85; RESP 17; TEMP 37.2; O2SAT 98; BMI 31.2
== END 2024-10-16 13:48 | disposition home or self-care (01) ==
LOC: OBOUT 13:02 → OB 13:03
PROVIDERS: PCP Nurse Practitioner Family; Visit Provider Nurse Practitioner Obstetrics & Gynecology
DX: O60.03 Preterm labor without delivery, third trimester (principal); Z3A.36 36 weeks gestation of pregnancy
CPT/HCPCS: G0463

== ENCOUNTER 2024-10-16 16:51 | Emergency (ER) | payer SELFPAY ==
[2024-10-16 16:51] VITALS: BP 150/68; PULSE 72; RESP 18; TEMP 36.8; O2SAT 100
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
--- NOTE | 2024-10-16 17:00 | PC.NURSE ---
Ge at [facility]. placed pt on TOCO monitor. PT heart rate 140s.
--- NOTE | 2024-10-16 17:00 | PC.NURSE ---
flight crew at bedside
--- NOTE | 2024-10-16 17:11 | PC.NURSE ---
REPORT CALLED TO ALEXANDRA NUGENT AT [facility]
--- NOTE | 2024-10-16 17:14 | ECG_ITS ---
APPROVED REPORT Exam: Resting ECG HR:71 bpm ECG Measurements Heart Rate 71 AXES AR 144 P 24 QRSd 110 QRS -4 QT 380 T 16 QTc 402 Conclusion SINUS RHYTHM WITH SINUS ARRHYTHMIA NORMAL ECG Electronically signed by : KE MEDEROS, 10/17/2024 07:02:06
--- NOTE | 2024-10-16 17:15 | PC.NURSE ---
flight crew at bedside. report given to ALEXANDRA CASTILLO
[2024-10-16 17:21] LABS: Fetal Membrane Rupture (Rapid) Negative (Negative)
--- NOTE | 2024-10-16 17:24 | PC.NURSE ---
MNorthcutt performing cervical exam at this time with pt permission. at bedside
--- NOTE | 2024-10-16 17:26 | PC.NURSE ---
Per MNorthcutt cervical exam: pt is 4cm\60\-3
--- NOTE | 2024-10-16 17:34 | PC.NURSE ---
Patient monitored by Liliya Mcneil RN and Be Garrido RN. monitor showed irritability and irregular contractions. 3 contractions noted during approximately 34 minutes of monitoring. No heart rate decelerations noted. Regular rhythm noted audibility on monitor.
[2024-10-16 17:35] VITALS: BP 167/82; PULSE 87; RESP 16; TEMP 36.8; O2SAT 100
[2024-10-16] MEDS: LACTATED RINGERS 1000ML 1,000 ML 999 ML IV (17:37)
[2024-10-16] MEDS: ONDANSETRON 4MG/2ML VIAL 4 MG IV (17:37)
--- NOTE | 2024-10-16 17:41 | PC.NURSE ---
pt out the door with flight crew.
== END 2024-10-16 17:35 | disposition short-term general hospital (02) ==
PROVIDERS: Emergency Provider Emergency Medicine; PCP Nurse Practitioner Family
DX: T07.XXXA Unspecified multiple injuries, initial encounter (principal); R07.9 Chest pain, unspecified; R10.9 Unspecified abdominal pain; V43.52XA Car driver injured in collision with other type car in traffic accident, initial encounter; Y93.89 Activity, other specified; Y92.488 Other paved roadways as the place of occurrence of the external cause
CPT/HCPCS: 84112; 93005; 96361; 96374; 96375; 99284; J2405; J7120

== ENCOUNTER 2024-10-30 11:09 | Outpatient (CLI) | payer BC, SELFPAY ==
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
--- NOTE | 2024-10-30 11:12 | XR_ITS ---
FINAL REPORT CLINICAL HISTORY: Lower leg injury COMPARISON: None FINDINGS: 2 views of the left tibia/fibula were obtained. There is no acute fracture or dislocation. The joint spaces are intact. There is no soft tissue abnormality. IMPRESSION: No acute process. Reviewed, Interpreted and Dictated by Harris Clinton MD Transcribed by Apryl Morillo Authenticated and [facility]
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
--- NOTE | 2024-10-30 11:12 | XR_ITS ---
FINAL REPORT CLINICAL HISTORY: Left knee injury COMPARISON: None FINDINGS: LEFT KNEE 3 views of the left knee were obtained. There is no acute fracture or dislocation. Visualized joint spaces are normally aligned. Soft tissues are unremarkable. IMPRESSION: No acute bony abnormality. Reviewed, Interpreted and Dictated by Harris Clinton MD Transcribed by Apryl Morillo Authenticated and [facility]
== END 2024-10-30 23:59 | disposition home or self-care (01) ==
LOC: RAD 11:10
PROVIDERS: PCP Nurse Practitioner Family; Visit Provider Nurse Practitioner Family
DX: M25.562 Pain in left knee (principal); M25.522 Pain in left elbow; M79.632 Pain in left forearm; S89.92XA Unspecified injury of left lower leg, initial encounter; S59.912A Unspecified injury of left forearm, initial encounter; S59.902A Unspecified injury of left elbow, initial encounter; V89.2XXA Person injured in unspecified motor-vehicle accident, traffic, initial encounter
CPT/HCPCS: 73080; 73090; 73562; 73590

== ENCOUNTER 2024-11-03 13:51 | Outpatient (CLI) | payer BC, SELFPAY ==
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
--- NOTE | 2024-11-03 14:31 | CT_ITS ---
FINAL REPORT TECHNIQUE: Axial CT without IV contrast administration. This study was performed with techniques to keep radiation doses as low as reasonably achievable, (ALARA). Individualized dose reduction techniques using automated exposure control or adjustment of mA and/or kV according to the patient''s size were employed. CLINICAL HISTORY: Sternal fracture, tightness in chest COMPARISON: 06/19/2023 FINDINGS: There is a 4 mm right lower lobe nodule seen on image 111. Left lower lobe scarring or atelectasis is noted. There is no evidence of hemothorax or pneumothorax. No pleural or pericardial effusion is seen. No adenopathy or mass lesion is present. The mediastinum is unremarkable without evidence of mediastinal hemorrhage. There is a mid sternal body fracture with up to 4 mm of displacement. No obvious rib fracture is seen. IMPRESSION: 1. No evidence of pulmonary contusion or pneumothorax. 2. Mildly displaced sternal body fracture. 3. Incidental right lower lobe nodule is likely a granuloma considering the patient's age. Reviewed, Interpreted and Dictated by Nancy Oliva MD Transcribed by Antionette Cuevas Authenticated and [facility]
== END 2024-11-03 23:59 | disposition home or self-care (01) ==
LOC: RT 13:52
PROVIDERS: PCP Nurse Practitioner Family; Visit Provider Nurse Practitioner Family
DX: Q21.0 Ventricular septal defect (principal); R01.1 Cardiac murmur, unspecified; R06.02 Shortness of breath; S22.20XA Unspecified fracture of sternum, initial encounter for closed fracture
CPT/HCPCS: 71250; 93306

== ENCOUNTER 2025-01-01 14:39 | Outpatient (CLI) | payer BC, SELFPAY ==
--- NOTE | 2025-01-01 14:42 | XR_ITS ---
FINAL REPORT CLINICAL HISTORY: lt knee anterior pain COMPARISON: None FINDINGS: LEFT KNEE 3 views of the left knee were obtained. There is no acute fracture or dislocation. Visualized joint spaces are normally aligned. Soft tissues are unremarkable. IMPRESSION: No acute bony abnormality. Reviewed, Interpreted and Dictated by Harris Clinton MD Transcribed by Itzel Bass Authenticated and . [facility]
== END 2025-01-01 23:59 | disposition home or self-care (01) ==
LOC: RAD 14:41
PROVIDERS: PCP Nurse Practitioner Family; Visit Provider Physician Assistant Surgical
DX: M25.562 Pain in left knee (principal)
CPT/HCPCS: 73562

== ENCOUNTER 2025-01-09 07:28 | Outpatient (CLI) | payer BC, SELFPAY ==
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
== END 2025-01-09 23:59 | disposition home or self-care (01) ==
LOC: RAD 07:29
PROVIDERS: PCP Nurse Practitioner Family; Visit Provider Nurse Practitioner Family
DX: R10.30 Lower abdominal pain, unspecified (principal)
CPT/HCPCS: 76700

== ENCOUNTER 2025-01-16 10:31 | Outpatient (CLI) | payer BC, SELFPAY ==
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
== END 2025-01-16 23:59 | disposition home or self-care (01) ==
LOC: RAD 10:31
PROVIDERS: PCP Nurse Practitioner Family; Visit Provider Nurse Practitioner Family
DX: M25.562 Pain in left knee (principal)
CPT/HCPCS: 76882

== ENCOUNTER 2025-01-23 12:13 | Outpatient (CLI) | payer BC, SELFPAY ==
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
== END 2025-01-23 23:59 | disposition home or self-care (01) ==
LOC: RAD 12:14
PROVIDERS: PCP Nurse Practitioner Family; Visit Provider Surgery
DX: R93.5 Abnormal findings on diagnostic imaging of other abdominal regions, including retroperitoneum (principal); R10.30 Lower abdominal pain, unspecified
CPT/HCPCS: 71250; 74181

== ENCOUNTER 2025-07-15 13:35 | Outpatient (CLI) | payer BC, SELFPAY ==
--- OUTSIDE RECORDS SUMMARY | 2025-04-29 12:00 | XMS_ITS ---
Author Organization [facility] Address [address] [id number] Care Team Providers Care Automation Design Engineer Name Role Phone Sunday Joshi Primary Care Provider Allergies Allergen (clinical drug ingredient) Drug/Non Drug Allergy documented on EMR Reaction Allergy Type Onset Date Status cefaclor Cefaclor Unknown Drug Allergy Active Penicillin Unknown Drug Allergy Active REASON FOR VISIT check up Encounters Encounter Location Date Provider Diagnosis Supriya [address] [place] [phone] 04/29/2025 Joshi Plan Of Treatment No Information Progress Notes * Radha GREENFIELD RDOB:1990 (35 yo F)Acc No.[id number]:04/29/2025 Progress Notes Patient: Radha CEDILLO Provider: Spohy Joshi M.D. :1990 A ge:35 Y S ex:Female Date:04/29/2025 Address:[address] [place] [address] [id number] Subjective: * Chief Complaints: * 1 . Check up. * ROS: D ERMATOLOGY: no R sussy. n o H niko. G ASTROENTEROLOGY: no N ausea. n o V omiting. U ROLOGY: no D ifficulty urinating. n o B lood in urine. * Medical History: C ardiac Murmur, VSD, IBS, Skin infection axilla. * Surgical History: w isdome teeth removed 2005. * Hospitalization/Major Diagno stic Procedure: D enies Past Hospitalization. * Family History: F ather: alive 55 yrs. M other: alive 54 yrs. S iblings: alive. 2 brother(s) , 1 sister(s) - healthy. . * Social History: C URRENT TOBACCO USE: No . * Allergies: C efaclor, Penicillin. Objective: * Vitals: Assessment: Plan: * Treatment: * Images: Billing Information: * Visit Code: * Procedure Codes: * Electronic signature of Cindy Joshi MD on 07/15/2025 at 01:39 PM EDT Sign off status: Pending * Provider: Sophy Joshi M.D. Date: 0 04/29/2025 Generated for Melina leahy/[place]/Richy on: 0 07/15/2025 01:39 PM EDT
--- OUTSIDE RECORDS SUMMARY | 2025-07-15 13:39 | XMS_ITS | Encounter Summary ---
Author Organization Healthcare Address [address] [place] [address] Care Team Providers Care Demand Planning Analyst Name Role Phone Sunday Joshi MD Primary Care Provider [phone] Pcp, No Primary Care Provider Unavailabl e Sunday Joshi MD Unavailable [phone] Encounter Details Date Type Department Care Team (Late st Contact Info) Description 06/19/2023 Orders Only External Location [address] [place] [address] Provider, External Social History Tobacco Use Types Packs/Day Years Used Date Smoking Tobacco: Never Passive Smoke Exposure: Never Smokeless Tobacco: Never Alcohol Use Standard Drinks/Week Comments Not Currently 0 (1 standard drink = 0.6 oz pure alcohol) Alcoholic Drinks/day: Occasional alcohol use PHQ-2 Answer Date Recorded Patient Health Questionnaire-2 Score 0 02/15/2023 PHQ-2A Answer Date Recorded Patient Health Questionnaire-2 Score 0 02/15/2023 Comments Unknown Sex and Gender Information Value Date Recorded Sex Assigned at Not on file Legal Sex Female 7:51 PM EDT Gender Identity Not on file Sexual Orientation Not on file documented as of this encounter Plan of Treatment Not on file documented as of this encounter Procedures Procedure Name Priority Date/Time Associated Diagnosis Comments CT THORACIC OUTSIDE IMAGES 06/19/2023 9:31 PM EDT documented in this encounter Results * CT THORACIC OUTSIDE IMAGES (06/19/2023 9:31 PM EDT) Anatomical Region Laterality Modality Computed Tomogra phy 06/19/2023 9:31 PM EDT External Provider IMG CT PROCEDURES Final Result documented in this encounter Visit Diagnoses Not on filedocumented in this encounter Additional Health Concerns Assessment Noted Time A fall risk assessment has been complete d for the patient 02/15/2023 11:56 AM EDT A Body Mass Index follow-up plan has been documented for the patient 02/15/2023 1:02 PM EDT documented as of this encounter Care Teams Demand Planning Analyst Relationship Specialty Start Date End Date Sunday Joshi MD [address] [address] PCP - General 02/15/23 09/16/24 Pcp, Sulema [address] [place] [id number] PCP - General Family Medicine 09/17/24 Joshi MD [address] [id number] 09/17/24 documented as of this encounter
--- OUTSIDE RECORDS SUMMARY | 2025-07-15 13:39 | XMS_ITS | Clinical Summary ---
Author Organization [facility] Address [address] [place] [address] Care Team Providers Care Caddie Name Role Phone Provider, No Known Primary Care Provider Unavail able Allergies Active Allergy Reactions Criticality Noted Date Comments Cefaclor Unknown (See Comments) Low 10/06/2015 Latex Rash Medium 09/18/2022 Penicillins Unknown (See Comments) Low 10/06/2015 Medications Vit-Fe Fumarate-FA ( vitamin 27-0.8) 27-0.8 MG tablet tablet Take 1 tablet by mouth Daily. Active Active Problems Problem Noted Date Diagnosed Date Family history of congenital cardiac septal defe ct 08/25/2024 Assessment & Plan (08/25/2024 11:23 AM EST): Maternal history of unrepaired VSD. Last echo in 2022 with normal EF but thickened tricuspid valve leaflets likely secondary to the cohk-ea-xnsmr jet from the VSD. echo today within normal limits. - Recommend patient continue close follow-up with [facility] Chronic hypertension affecting 024 Assessment & Plan (08/25/2024 11:16 AM EST): Patient with history of CHTN and preeclampsia in 4th . She was on a daily ASA 81mgs, but stopped when she kept getting nose bleeds. Her BP today is 138/70. - Recommend collection of baseline urine Protein:Creatinine ratio, serum creatinine, uric acid, and AST/ALT/LDH - Recommend serial growth ultrasounds q4wks History of pre-eclampsia in prior , currently 08/25/2024 Assessment & Plan (08/25/2024 11:25 AM EST): - Recommend serial growth ultrasounds, baseline labs, and close observation for evidence of preeclampsia History of gestational diabe sonam in prior , currently 08/25/2024 Assessment & Plan (08/25/2024 11:24 AM EST): Patient unable to tolerate drinking 1-hr GCT, so was to check blood sugars 4x/day. I did not see this information, so did not ask to see her logs. If she has gestational diabetes and you would like any help with managing, we are very happy to help. Social History Tobacco Use Types Packs/Day Years Used Date Smoking Tobacco: Never Smokeless Tobacco: Never Tobacco Cessation:Counseling Given: Not Answered Alcohol Use Standard Drinks/Week Comments Not Currently 0 (1 standard drink = 0.6 oz pur e alcohol) Comments No Sex and Gender Information Value Date Recorded Sex Assigned at Not on file Legal Sex Female 12:55 PM EDT Gender Identity Not on file Sexual Orientation Not on file Last Filed Vital Signs Vital Sign Reading Time Taken Comments Blood Pressure 138/71 08/25/2024 9:42 AM EST Pulse - - Temperature - - Respiratory Rate - - Oxygen Saturation - - Inhaled Oxygen Concentration - - Weight 80.3 kg (177 lb) 08/25/2024 9:42 AM EST Height 162.6 cm (5' 4 ) 08/25/2024 9:43 AM EST Body Mass Index 30.38 08/25/2024 9:42 AM EST Plan of Treatment Health Maintenance Due Date Last Done Comments Annual Gynecologic Pelvic an d Breast Exam 1990 TDAP/TD VACCINES (1 - Tdap) 2009 PAP SMEAR 2011 ANNUAL PHYSICAL 08/18/2024 HEPATITIS C SCREENING 08/18/2024 INFLUENZA VACCINE 05/22/2025 Pneumococcal Vaccine 0-49 Aged Out No longer eligible based on patient's age to complete this topic Insurance [address] [place], [place] [address] [place] PPO Care Teams Caddie Relationship Specialty Start Date End Date Provider, No Known [facility] [place] [address] PCP - General 08/18/24
--- OUTSIDE RECORDS SUMMARY | 2025-07-15 13:39 | XMS_ITS | Clinical Summary ---
Author Organization [facility] Address [address] [facility] [address] [place] [address] Care Team Providers Care Clinical Tech Name Role Phone Provider, Non-Ulp Primary Care Provider Unavaila ble Social History Tobacco Use Types Packs/Day Years Used Date Smoking Tobacco: Never Assessed Comments Unknown Sex and Gender Information Value Date Recorded Sex Assigned at Not on file Legal Sex Female 4:43 PM EDT Gender Identity Not on file Sexual Orientation Not on file Plan of Treatment Not on file Care Teams Clinical Tech Relationship Specialty Start Date End Date Provider, Non-Ulp PCP - General 07/12/21
--- OUTSIDE RECORDS SUMMARY | 2025-07-15 13:39 | XMS_ITS | Encounter Summary ---
Author Organization Healthcare Address [address] [place] [address] Care Team Providers Care Sheet Rocker Name Role Phone Sunday Joshi MD Primary Care Provider [phone] Pcp, No Primary Care Provider Unavailabl e Sunday Joshi MD Unavailable [phone] Encounter Details Date Type Department Care Team (Late st Contact Info) Description 06/19/2023 Orders Only External Location [address] [place] [address] Provider, External Social History Tobacco Use Types [...] Procedure Name Priority Date/Time Associated Diagnosis Comments XR OUTSIDE IMAGES 06/19/2023 7:15 PM EDT documented in this encounter Results * XR OUTSIDE IMAGES (06/19/2023 7:15 PM EDT) Anatomical Region Laterality Modality Radiographic Marion ging 06/19/2023 7:15 PM EDT External Provider IMG XR PROCEDURES Final Result documented in this encounter Visit Diagnoses Not on filedocumented in this encounter Additional Health Concerns Assessment Noted Time A fall risk assessment has been complete d for the patient 02/15/2023 11:56 AM EDT A Body Mass Index follow-up plan has been documented for the patient 02/15/2023 1:02 PM EDT documented as of this encounter Care Teams Sheet Rocker Relationship Specialty Start Date End Date Sunday Joshi MD [address] [address] PCP - General 02/15/23 09/16/24 Pcp, Sulema [facility] [place] [address] PCP - General Family Medicine 09/17/24 Joshi MD [address] [place] [address] 09/17/24 documented as of this encounter
--- OUTSIDE RECORDS SUMMARY | 2025-07-15 13:39 | XMS_ITS | Encounter Summary ---
Author Organization [facility] Address [address] [place] [address] Care Team Providers Care Window Shade Cutter Name Role Phone Sunday Joshi MD Primary Care Provider [phone] Pcp, No Primary Care Provider Unavailabl e Sunday Joshi MD Unavailable [phone] Encounter Details Date Type Department Care Team (Late st Contact Info) Description 06/19/2023 Orders Only External Location [address] [place] [address] Provider, External Social History Tobacco Use Types [...] Name Priority Date/Time Associated Diagnosis Comments CT MSK OUTSIDE IMAGES 06/19/2023 9:31 PM EDT documented in this encounter Results * CT MSK OUTSIDE IMAGES (06/19/2023 9:31 PM EDT) Anatomical Region Laterality Modality Computed Tomogra phy 06/19/2023 9:31 PM EDT us External Provider IMG CT PROCEDURES Final Result documented in this encounter Visit Diagnoses Not on filedocumented in this encounter Additional Health Concerns Assessment Noted Time A fall risk assessment has been complete d for the patient 02/15/2023 11:56 AM EDT A Body Mass Index follow-up plan has been documented for the patient 02/15/2023 1:02 PM EDT documented as of this encounter Care Teams Window Shade Cutter Relationship Specialty Start Date End Date Sunday Joshi MD [address] [address] PCP - General 02/15/23 09/16/24 Pcp, Sulema [address] [place] [address] PCP - General Family Medicine 09/17/24 Joshi MD [facility] [address] [address] 09/17/24 documented as of this encounter
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
--- OUTSIDE RECORDS SUMMARY | 2025-07-15 13:40 | XMS_ITS | Patient Health Record ---
Author Organization [facility] Address [address] [facility] [address] [id number] Care Team Providers Care Software Sales Executive Name Role Phone Sunday Joshi Primary Care Provider Allergies Allergen (clinical drug ingredient) Drug/Non Drug Allergy documented on EMR Reaction Allergy Type Onset Date Status cefaclor Cefaclor Unknown Drug Allergy Active Penicillin Unknown Drug Allergy Active Reason For Referral No Information Problems Problem Type SNOMED Code ICD Code Onset Dates Problem Status W/U Status Risk Notes Problem Anxiety (89855673) Anxiety (F41.9) Active confirmed Problem Mixed anxiety and depressive disorder (864149330) Depression with anxiety (F41.8) Active confirmed Problem Major depression, single episode (34772708) Major depressive disorder, single episode, unspecified (F32.9) Active confirmed Problem Missed period (65183764) Missed period (N92.6) Active confirmed Problem Seasonal allergic rhinitis (254487885) Seasonal allergic rhinitis, unspecified trigger (J30.2) Active confirmed Problem Raynaud's disease (940788346) Raynaud''s disease without gangrene (I73.00) Active confirmed Problem Ventricular septal defect (99266740) VSD (ventricular septal defect) (Q21.0) Active confirmed Plan Of Treatment Pending Test Test Name Order Date Progesterone level 10/12/2021 Insurance Providers Payer Name Payer Address Payer Phone Subscriber Number Group Number Insured Name Patient Relationship to Insured Coverage Start Date Coverage End Date [employer] [address] [place] [address] [phone] [id number] TRUE, Radha Self - patient is the insured Medical (General) History Medical History History ICD Code Cardiac Murmur, VSD IBS Skin infection axilla Surgical History Surgery Date(Month/Year) wisdome teeth removed 2005
--- OUTSIDE RECORDS SUMMARY | 2025-07-15 13:40 | XMS_ITS | Encounter Summary ---
Author Organization [facility] Address [address] [place] [address] Care Team Providers Care Training Development Director Name Role Phone Pcp, No Primary Care Provider Sunday Ruvalcaba MD Unavailable [phone] Encounter Details Date Type Department Care Team (Late st Contact Info) Description 11/03/2024 Orders Only External Location [address] [place] [id number] Provider, External Social History Tobacco Use Types Packs/Day Years Used Date Smoking Tobacco: Never Passive Smoke Exposure: Never Smokeless Tobacco: Never Alcohol Use Standard Drinks/Week Comments Not Currently 0 (1 standard drink = 0.6 oz pure alcohol) Alcoholic Drinks/day: Occasional alcohol use PHQ-2 Answer Date Recorded Patient Health Questionnaire-2 Score 0 02/15/2023 CAGE ASSESSMENT Answer Date Recorded Cage unable [...] drink first t berta in the morning (EYE-SUPERVISOR RIVETING) to steady your nerves or to get [...] Associated Diagnosis Comments CT THORACIC OUTSIDE IMAGES 11/03/2024 2:37 PM EST documented in this encounter Results * CT THORACIC OUTSIDE IMAGES (11/03/2024 2:37 PM EST) Anatomical Region Laterality Modality Computed Tomogra phy 11/03/2024 2:37 PM EST us External Provider IMG CT PROCEDURES Final Result documented in this encounter Visit Diagnoses Not on filedocumented in this encounter Additional Health Concerns Assessment Noted Time A fall risk assessment has been complete d for the patient 02/15/2023 11:56 AM EDT A Body Mass Index follow-up plan has been documented for the patient 10/20/2024 1:04 PM EST documented as of this encounter Care Teams Training Development Director Relationship Specialty Start Date End Date Pcp, Sulema [address] [place] [address] PCP - General Family Medicine 09/17/24 Joshi MD [facility] [place] [address] 09/17/24 documented as of this encounter
== END 2025-07-15 23:59 | disposition home or self-care (01) ==
LOC: RAD 13:37
PROVIDERS: PCP Nurse Practitioner Family; Visit Provider Nurse Practitioner Family
DX: M53.3 Sacrococcygeal disorders, not elsewhere classified (principal); M54.40 Lumbago with sciatica, unspecified side

== ENCOUNTER 2025-08-26 16:40 | Outpatient (CLI) | payer BC, SELFPAY ==
--- NOTE | 2025-08-26 17:00 | MR_ITS ---
PROCEDURE INFORMATION: Exam: MR Pelvis Without Contrast, Sacrum Exam date and time: 08/26/2025 4:40 PM Age: 35 years old Clinical indication: Pelvic pain; Additional info: Coccydynia TECHNIQUE: Imaging protocol: Magnetic resonance imaging of the pelvis without contrast. Exam focused on the sacrum. COMPARISON: CT ABDOMEN PELVIS W CON 06/19/2023 9:31 PM FINDINGS: Intraperitoneal space: Minimal dependent free fluid in the pelvis. Reproductive: There is a 5.6 x 3.5 x 4.4 cm cystic mass of the right ovary containing 1 septation and 2 locules. The larger locule appears to have retracted clot in the inferior aspect, image 7/7 that is heterogeneously isointense to hyperintense on T1 and homogeneously hypointense on T2. The smaller locule has heterogeneously hyperintense contents on both T1 and T2. Findings are most consistent with a hemorrhagic cyst. The uterus is retroflexed.The uterus is normal in size measuring 8.2 x 4.9 x 5.7 cm (normal nulliparous 6-9 x 5 x 5 cm, multiparous 6-11 x 5 x 5 cm). The endometrium is normal in size and appearance measuring 8 mm in thickness (normal < 14 mm). The junctional zone is normal in size and appearance measuring 10 mm in thickness. The left ovary is normal in appearance. Bones/joints: Visible lumbar spine is unremarkable in appearance. The sacrum and sacroiliac joints are normal. Remaining visible skeletal structures are unremarkable. Soft tissues: Unremarkable. IMPRESSION: 1.No acute or chronic skeletal pathology. 2. 5.6 cm cystic mass of the right ovary, most consistent with a hemorrhagic cyst. Follow-up pelvic MR imaging with IV contrast is recommended to complete characterization.
--- OUTSIDE RECORDS SUMMARY | 2025-10-27 13:50 | XMS_ITS | Encounter Summary ---
Author Organization Healthcare Address [address] [place] [address] Care Team Providers Care Vehicle Modification Technician Name Role Phone Sunday Joshi MD Primary Care Provider [phone] Pcp, No Primary Care Provider Unavailabl e Sunday Joshi MD Unavailable [phone] Encounter Details Date Type Department Care Team (Late st Contact Info) Description 06/19/2023 Orders Only External Location [address] [place] [address] Provider, External Social History Tobacco Use Types [...] documented as of this encounter Care Teams Vehicle Modification Technician Relationship Specialty [place] [address] PCP - General 02/15/23 09/16/24 Pcp, No [address] [place] [address] PCP - General Family Medicine 09/17/24 [place] [address] 09/17/24 documented as of this encounter
--- OUTSIDE RECORDS SUMMARY | 2025-10-27 13:50 | XMS_ITS | Clinical Summary ---
Author Organization [facility] Address [address] [place] [address] Care Team Providers Care Laboratory Director Name Role Phone Provider, No Known Primary [...] tricuspid valve leaflets likely secondary to the zquk-ns-ngnpb jet from the VSD. echo today within [...] 1990 TDAP/TD VACCINES (1 - Tdap) 2009 ANNUAL PHYSICAL 08/18/2024 HEPATITIS C SCREENING 08/18/2024 INFLUENZA VACCINE 05/22/2025 Pneumococcal Vaccine 0-49 Aged Out No longer eligible based on patient's age to complete this topic Insurance [facility] PPO Care Teams Laboratory Director Relationship Specialty Start Date End Date Provider, No Known [facility] [place] [address] PCP - General 08/18/24
--- OUTSIDE RECORDS SUMMARY | 2025-10-27 13:50 | XMS_ITS | Encounter Summary ---
Author Organization Healthcare Address [address] [place] [address] Care Team Providers Care Belt Notcher Name Role Phone Sunday Joshi MD Primary Care Provider [phone] Pcp, No Primary Care Provider Unavailabl e Sunday Joshi MD Unavailable [phone] Encounter Details Date Type Department Care Team (Late st Contact Info) Description 06/19/2023 Orders Only External Location [address] [place] [address] Provider, External Social History Tobacco Use Types [...] documented as of this encounter Care Teams Belt Notcher Relationship Specialty [place] [address] PCP - General 02/15/23 09/16/24 Pcp, Sulema [address] [place] [address] PCP - General Family Medicine 09/17/24 [place] [address] 09/17/24 documented as of this encounter
--- OUTSIDE RECORDS SUMMARY | 2025-10-27 13:50 | XMS_ITS | Clinical Summary ---
Author Organization [facility] Address [address] [facility] [address] [place] [address] Care Team Providers Care Paper Bag Maker Name Role Phone Provider, Non-Ulp Primary Care Provider Unavaila ble Social History Tobacco Use Types Packs/Day Years Used Date Smoking Tobacco: Never Assessed Comments Unknown Sex and Gender Information Value Date Recorded Sex Assigned at Not on file Legal Sex Female 4:43 PM EDT Gender Identity Not on file Sexual Orientation Not on file Plan of Treatment Not on file Care Teams Paper Bag Maker Relationship Specialty Start Date End Date Provider, Non-Ulp PCP - General 07/12/21
--- OUTSIDE RECORDS SUMMARY | 2025-10-27 13:50 | XMS_ITS | Encounter Summary ---
Author Organization Healthcare Address [address] [place] [address] Care Team Providers Care Sales Executive Insurance Name Role Phone Sunday Joshi MD Primary Care Provider [phone] Pcp, No Primary Care Provider Unavailabl e Sunday Joshi MD Unavailable [phone] Encounter Details Date Type Department Care Team (Late st Contact Info) Description 06/19/2023 Orders Only External Location [address] [place] [address] Provider, External Social History Tobacco Use Types [...] documented as of this encounter Care Teams Sales Executive Insurance Relationship Specialty [place] [id number] PCP - General 02/15/23 09/16/24 Pcp, No [address] [place] [address] PCP - General Family Medicine 09/17/24 [place] [id number] 09/17/24 documented as of this encounter
--- OUTSIDE RECORDS SUMMARY | 2025-10-27 13:50 | XMS_ITS | Encounter Summary ---
Author Organization Healthcare Address [address] [place] [address] Care Team Providers Care Medical Lab Tech Instructor Name Role Phone Pcp, No Primary Care Provider Sunday Ruvalcaba MD Unavailable [phone] Encounter Details Date Type Department Care Team (Late st Contact Info) Description 11/03/2024 Orders Only External Location [address] [place] [address] Provider, External Social History Tobacco Use Types [...] drink first t berta in the morning (EYE-PIPELINE INSPECTOR) to steady your nerves or to get [...] documented as of this encounter Care Teams Medical Lab Tech Instructor Relationship Specialty Start Date End Date Pcp, Sulema [address] [place] [address] PCP - General Family Medicine 09/17/24 [place] [id number] 09/17/24 documented as of this encounter
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
== END 2025-08-26 23:59 | disposition home or self-care (01) ==
LOC: RAD 10-27 13:44
PROVIDERS: PCP Nurse Practitioner Family; Visit Provider Nurse Practitioner Family
DX: N83.201 Unspecified ovarian cyst, right side (principal); M53.3 Sacrococcygeal disorders, not elsewhere classified; M54.40 Lumbago with sciatica, unspecified side
CPT/HCPCS: 72195

== ENCOUNTER 2025-10-02 09:49 | Outpatient (CLI) | payer BC, SELFPAY ==
--- NOTE | 2025-10-02 10:00 | US_ITS ---
FINAL REPORT CLINICAL HISTORY: RUQ abd pain FINDINGS: Sonographic images of the right upper quadrant were obtained. The pancreas is partially obscured.The liver has an unremarkable appearance. There is a small echogenic focus in the gallbladder which is nonshadowing and could represent a small polyp or small focus of sludge, best seen on the transverse view. There is no evidence of biliary ductal dilatation.The common duct measures 4mm. Limited images of the right kidney are unremarkable. IMPRESSION: Possible small polyp or sludge in the gallbladder. Reviewed, Interpreted and Dictated by Harris Clinton MD Transcribed by Apryl Morillo Authenticated and [facility]
== END 2025-10-02 23:59 | disposition home or self-care (01) ==
LOC: RAD 09:50
PROVIDERS: PCP Nurse Practitioner Family; Visit Provider Nurse Practitioner Family
DX: R93.2 Abnormal findings on diagnostic imaging of liver and biliary tract (principal); R10.11 Right upper quadrant pain
CPT/HCPCS: 76705